=== PATIENT | male | born 1935 | race Caucasian/White ===

== ENCOUNTER 2016-11-27 04:00 | Emergency (ER) | payer MEDICARE ==
[2016-11-27] MEDS ORDERED: methylPREDNISolone SOD SUCC* 125 MG 2 ML VIAL IV ONE (04:15)
[2016-11-27 04:31] LABS: Hematocrit 39 % (42-52); Mean Corpuscular HGB Conc 33 g/dl (31-36); Mean Corpuscular Hemoglobin 28 pg (27-31); Mean Corpuscular Volume 86 fL (80-94); Mean Platelet Volume 9 um3 (7.4-10.4); Red Blood Count 4.56 10^6/ul (4.0-5.4); Red Cell Distribution Width 14 % (10.5-15); White Blood Count 6.2 10^3/ul (3.5-10.8)
[2016-11-27] MEDS ORDERED: Albuterol (2.5 MG) 0.5 % CONC 2.5 MG/0.5 ML NEB.SOLN INH ONE (04:31)
[2016-11-27] MEDS ORDERED: Ipratropium 0.5MG/2.5ML NEB* 0.5 MG/2.5 ML NEB.SOLN INH ONE (04:31)
[2016-11-27] MEDS ORDERED: Albuterol 0.5% CONC NEB.SOL* 5 MG/ML 20 ml BOT ONE (04:35)
[2016-11-27] MEDS ORDERED: Ipratropium 0.5MG/2.5ML NEB* 0.5 MG/2.5 ML NEB.SOLN ONE (04:35)
[2016-11-27 04:45] LABS: Albumin 4.3 g/dL (3.2-5.2); BUN/Creatinine Ratio 20.7 (8-20); Calcium 9.2 mg/dL (8.6-10.3); EGFR African American 108.6 (>60); EGFR Non-African American 84.4 (>60); Globulin 2.9 g/dL (2-4); Potassium 3.9 mmol/L (3.5-5.0); Total Bilirubin 0.4 mg/dL (0.2-1.0); Total Protein 7.2 g/dL (6.4-8.9)
--- NOTE | 2016-11-27 04:54 | ED ---
Jeff Goode Anna, scribed for Khang Edmond MD on 11/27/16 at 0405 . Shortness of Breath - HPI Summary HPI Summary: Patient is an 81 y/o male coming to [facility] presenting with constant SOB that began at 0200 this morning. He sometimes becomes SOB and has Prednisone that he takes when this happens. However, this morning he was at his daughters house and did not have access to his Prednisone. He has tried inhalers, but this has not alleviated his symptoms. He has also had an intermittent productive cough. He denies CP or fever. His history is significant for COPD and asthma. He denies a history of smoking. - History of Current Complaint Hx Obtained From: Patient Current Severity: Moderate - Allergy/Home Medications Allergies/Adverse Reactions: Allergies Allergy/AdvReac Type Severity Reaction Status Date / Time Dust Mite Extract Allergy Intermediate Unknown Verified 11/27/16 04:17 Reaction Details Cow hair Allergy Intermediate Itching Uncoded 11/27/16 04:17 PMH/Surg Hx/FS Hx/Imm Hx Endocrine/Hematology History: Denies: Hx Diabetes, Hx Thyroid Disease Comment Only: Hx Anemia - ON DAILY IRON Cardiovascular History: Reports: Hx Hypertension, Other Cardiovascular Problems/ Disorders - HIGH BLOOD PRESSURE Respiratory History: Reports: Hx Asthma, Hx Chronic Obstructive Pulmonary Disease (COPD) GI History: Reports: Hx Gastroesophageal Reflux Disease - ON DAILY MEDS Denies: Hx Ulcer Musculoskeletal History: Reports: Hx Arthritis - HANDS,HIPS, Hx Rheumatoid Arthritis Sensory History: Reports: Hx Cataracts - BILATERAL Opthamlomology History: Reports: Hx Cataracts - BILATERAL Psychiatric History: Reports: Hx Substance Abuse - quit drinking a 6 pack a day last month. - Surgical History Surgery Procedure, Year, and Place: CARDIAC STENT =2007. right rotator cuff Hx Anesthesia Reactions: No Infectious Disease History: Denies: Hx Hepatitis, Hx Human Immunodeficiency Virus (HIV), History Other Infectious Disease - Family History Known Family History: Positive: Hypertension - Social History Occupation: Retired Alcohol Use: None Alcohol Amount: 4-5 drinks ago Hx Substance Use: No Substance Use Type: Reports: None Hx Tobacco Use: No Smoking Status (MU): Never Smoked Tobacco Have You Smoked in the Last Year: No Review of Systems Negative: Fever Negative: Chest Pain Positive: Shortness Of Breath, Cough All Other Systems Reviewed And Are Negative: Yes Physical Exam Triage Information Reviewed: Yes Vital Signs On Initial Exam: Temp Pulse Resp BP Pulse Ox 98.1 F 88 20 156/95 94 11/27/16 04:05 11/27/16 04:10 11/27/16 04:05 11/27/16 04:05 11/27/16 04:10 Vital Signs Reviewed: Yes Appearance: Positive: Well-Appearing, No Pain Distress - moderate sob Head/Face: Positive: Normal Head/Face Inspection Eyes: Positive: KAILYN ENT: Positive: Hearing grossly normal Neck: Positive: Supple Respiratory/Lung Sounds: Positive: Breath Sounds Present, Wheezes - bilat exp wheezes with prolonged expiration Cardiovascular: Positive: RRR Abdomen Description: Positive: Nontender, Soft Musculoskeletal: Positive: Strength/ROM Intact Neurological: Positive: Alert, Oriented to Person Place, Time, Normal Gait Diagnostics - Vital Signs Vital Signs Temp Pulse Resp BP Pulse Ox 11/27/16 04:32 99 18 100 11/27/16 04:28 20 11/27/16 04:10 88 94 11/27/16 04:05 98.1 F 86 20 156/95 93 11/27/16 04:00 98.1 F 86 20 156/95 94 - Laboratory Lab Results: Lab Results 11/27/16 11/27/16 Range/Units 04:10 04:10 WBC 6.2 (3.5-10.8) 10^3/ul RBC 4.56 (4.0-5.4) 10^6/ul Hgb 13.0 L (14.0-18.0) g/dl Hct 39 L (42-52) % MCV 86 (80-94) fL MCH 28 (27-31) pg MCHC 33 (31-36) g/dl RDW 14 (10.5-15) % Plt Count 264 (150-450) 10^3/ul MPV 9 (7.4-10.4) um3 Neut % (Auto) 42.7 (38-83) % Lymph % (Auto) 34.0 (25-47) % [place] % (Auto) 9.6 H (1-9) % Eos % (Auto) 11.8 H (0-6) % Baso % (Auto) 1.9 (0-2) % Absolute Neuts (auto) 2.7 (1.5-7.7) 10^3/ul Absolute Lymphs (auto) 2.1 (1.0-4.8) 10^3/ul Absolute Monos (auto) 0.6 (0-0.8) 10^3/ul Absolute Eos (auto) 0.7 H (0-0.6) 10^3/ul Absolute Basos (auto) 0.1 (0-0.2) 10^3/ul Absolute Nucleated RBC 0 10^3/ul Nucleated RBC % 0 Sodium 138 (133-145) mmol/L Potassium 3.9 (3.5-5.0) mmol/L Chloride 105 (101-111) mmol/L Carbon Dioxide 26 (22-32) mmol/L Anion Gap 7 (2-11) mmol/L BUN 18 (6-24) mg/dL Creatinine 0.87 (0.67-1.17) mg/dL Est GFR ( Amer) 108.6 (>60) Est GFR (Non-Af Amer) 84.4 (>60) BUN/Creatinine Ratio 20.7 H (8-20) Glucose 88 (70-100) mg/dL Calcium 9.2 (8.6-10.3) mg/dL Total Bilirubin 0.40 (0.2-1.0) mg/dL AST 22 (13-39) U/L ALT 24 (7-52) U/L Alkaline Phosphatase 128 H (34-104) U/L Troponin I 0.00 (<0.04) ng/mL Total Protein 7.2 (6.4-8.9) g/dL Albumin 4.3 (3.2-5.2) g/dL Globulin 2.9 (2-4) g/dL Albumin/Globulin Ratio 1.5 (1-3) Result Diagrams: 11/27/16 04:10 11/27/16 04:10 Lab Statement: Any lab studies that have been ordered have been reviewed, and results considered in the medical decision making process. - Radiology CXR Xray Interpretation: No Acute Changes Radiology Interpretation Completed By: ED Physician - IMPRESSION: NORMAL CHEST XR - EKG 0420 Cardiac Rate: NL - 76 bpm EKG Interpretation: RB left posterior jesse block Re-Evaluation - Re-Evaluation First Eval Change: Improved - lungs clear Course/Dx - Course Assessment/Plan: Patient is an 81 y/o male coming to [facility] presenting with constant SOB that began at 0200 this morning. He sometimes becomes SOB and has Prednisone that he takes when this happens. However, this morning he was at his daughters house and did not have access to his Prednisone. He has tried inhalers, but this has not alleviated his symptoms. He has also had an intermittent productive cough. He denies CP or fever. His history is significant for COPD and asthma. He denies a history of smoking. Patient was given albuterol, Atrovent, and Solu-medrol in the ED course. CXR reveals normal chest. EKG reveals RB left posterior jesse block at 76 bpm. Labs reveal Hgb of 13.0, Hct of 39, BUN/Creatinine ratio of 20.7, and Alkaline Phosphatase of 128. Patient will be discharged with follow up from primary care physician and a prescription for Prednisone. Patient is agreeable with plan. - Diagnoses Provider Diagnoses: COPD exacerbation Discharge - Discharge Plan Condition: Stable Disposition: HOME Prescriptions: predniSONE TAB* [Deltasone TAB*] 40 mg PO DAILY #8 tab Patient Education Materials: Prednisone (By mouth), COPD (Chronic Obstructive Pulmonary Disease) (ED) Referrals: Corey Garay MD [Primary Care Provider] - Additional Instructions: Follow up with your primary care provider within 48 hours. Return to the Emergency Department for new or worsening symptoms. The documentation as recorded by the Jeff roger Anna accurately reflects the service I personally performed and the decisions made by me, Khang Edmond MD.
[2016-11-27] MEDS ORDERED: Albuterol/Ipratropium NEB.SOL* Albuterol 2.5 MG/Ipratropium 0.5 MG 3 ML INH SCH (05:00)
[2016-11-27 05:26] VITALS: BP 128/70
--- NOTE | 2016-11-27 06:06 | RAD ---
INDICATION: Short of breath COMPARISON: Chest x-ray July 30, 2016 TECHNIQUE: PA and lateral dual-energy views were obtained. FINDINGS: Bones/Soft Tissues: There are no acute bony findings. Cardiomediastinal: The cardiomediastinal silhouette is normal. Lungs: There are no infiltrates. There are bilateral nipple shadows appearing unchanged. Pleura: There are no pleural effusions. Other: None IMPRESSION: NO ACTIVE DISEASE.
== END 2016-11-27 05:26 | disposition home or self-care (01) ==
LOC: ED 04:00
DX: J44.1 Chronic obstructive pulmonary disease with (acute) exacerbation (principal); R06.02 Shortness of breath; R05 Cough
CPT/HCPCS: 36415; 71020; 80053; 84484; 85025; 93005; 94640; 96374; 99283; J2930; J7644

== ENCOUNTER 2017-01-20 21:11 | Observation (INO) | payer MEDICARE ==
[2017-01-20] MEDS ORDERED: Aspirin Low Dose CHEW TAB* 81 MG PO ONE (21:53)
--- NOTE | 2017-01-20 22:18 | RAD ---
HISTORY: Chest pain COMPARISONS: November 27, 2016 VIEWS:1: Single frontal portable view of the chest at 10:12 PM FINDINGS: LINES AND TUBES: None. CARDIOMEDIASTINAL SILHOUETTE: The cardiomediastinal silhouette is normal for portable technique. PLEURA: The costophrenic angles are sharp. No pleural abnormalities are noted. LUNG PARENCHYMA: The lungs are clear. ABDOMEN: The upper abdomen is clear. There is no subphrenic gas. BONES AND SOFT TISSUES: No bone or soft tissue abnormalities are noted. IMPRESSION: NO ACTIVE CARDIOPULMONARY DISEASE.
[2017-01-20 22:27] LABS: Hematocrit 44 % (42-52); Hemoglobin 14.4 g/dl (14.0-18.0); Mean Corpuscular HGB Conc 33 g/dl (31-36); Mean Corpuscular Hemoglobin 28 pg (27-31); Mean Corpuscular Volume 85 fL (80-94); Mean Platelet Volume 8 um3 (7.4-10.4); Red Cell Distribution Width 15 % (10.5-15); White Blood Count 9.9 10^3/ul (3.5-10.8)
[2017-01-20 22:31] LABS: Add Diff/Slide Review? Slide Review Added; Comments Flag Yes
[2017-01-20 22:36] LABS: Albumin 4.5 g/dL (3.2-5.2); BUN/Creatinine Ratio 17.5 (8-20); Calcium 9.6 mg/dL (8.6-10.3); EGFR African American 95.8 (>60); EGFR Non-African American 74.5 (>60); Globulin 3.5 g/dL (2-4); Potassium 3.3 mmol/L (3.5-5.0); Total Bilirubin 0.5 mg/dL (0.2-1.0)
[2017-01-20 22:38] LABS: Troponin I 0.01 ng/mL (<0.04)
[2017-01-20] MEDS ORDERED: Aspirin TAB* 325 MG PO ONE (23:10)
[2017-01-20] MEDS ORDERED: Potassium Chlor TAB* 20 MEQ TAB.ER PO ONE (23:50)
--- NOTE | 2017-01-21 03:25 | ED ---
Ever Goode Aidan, scribed for Chava Amanda on 01/20/17 at 2157 . 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 The patient was given ASA en route which reduced his pain to a 4/ 10. The last time he had CP was 3-4 days ago. Hx of intermittent CP aggravated by getting upset for which he takes NITRO. Additionally, he has a Hx of stent placement and cardiac catheterization. 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 Timing: Intermittent Initial Severity: Moderate Pain Intensity: 0 - current pain is 0 (see HPI) Pain Scale Used: 0-10 Numeric Chest Pain Location: Diffuse Chest Pain Radiates: No Character: Tightness Aggravating Factor(s): Other: - unknown Alleviating Factor(s): Other: - ASA seemed to reduce the CP from 6 to 4/10 Associated Signs and Symptoms: Positive: Negative - Allergy/Home Medications Allergies/Adverse Reactions: Allergies Allergy/AdvReac Type Severity Reaction Status Date / Time Dust Mite Extract Allergy Intermediate Unknown Verified 11/27/16 04:17 Reaction Details Cow hair Allergy Intermediate Itching Uncoded 11/27/16 04:17 PMH/Surg Hx/FS Hx/Imm Hx Endocrine/Hematology History: Denies: Hx Diabetes, Hx Thyroid Disease Comment Only: Hx Anemia - ON DAILY IRON Cardiovascular History: Reports: Hx Hypertension, Other Cardiovascular Problems/ Disorders - HIGH BLOOD PRESSURE Respiratory History: Reports: Hx Asthma, Hx Chronic Obstructive Pulmonary Disease (COPD), Other Respiratory Problems/Disorders - HX OF COPD GI History: Reports: Hx Gastroesophageal Reflux Disease - ON DAILY MEDS Denies: Hx Ulcer Musculoskeletal History: Reports: Hx Arthritis - HANDS,HIPS, Hx Rheumatoid Arthritis Sensory History: Reports: Hx Cataracts - BILATERAL Opthamlomology History: Reports: Hx Cataracts - BILATERAL Psychiatric History: Reports: Hx Substance Abuse - quit drinking a 6 pack a day last month. - Surgical History Surgery Procedure, Year, and Place: CARDIAC STENT =2007. right rotator cuff Hx Anesthesia Reactions: No - Immunization History Date of Tetanus Vaccine: unk Date of Influenza Vaccine: unk Infectious Disease History: Unable to Obtain/Confirm Infectious Disease History: Denies: Hx Hepatitis, Hx Human Immunodeficiency Virus (HIV), History Other Infectious Disease, Traveled Outside the [place] in Last 30 Days - Family History Known Family History: Positive: Hypertension - Social History Occupation: Retired Lives: Alone Alcohol Use: "2 beers" today Alcohol Amount: "2 beers" today Hx Substance Use: No Substance Use Type: Reports: None Hx Tobacco Use: No Smoking Status (MU): Unknown if Ever Smoked Have You Smoked in the Last Year: No Review of Systems Constitutional: Negative Eyes: Negative ENT: Negative Positive: Chest Pain. Negative: Palpitations Respiratory: Negative Gastrointestinal: Negative Genitourinary: Negative Musculoskeletal: Negative Skin: Negative Neurological: Negative Psychological: Normal All Other Systems Reviewed And Are Negative: Yes Physical Exam Triage Information Reviewed: Yes Vital Signs On Initial Exam: Initial Vitals Temp Pulse Resp BP Pulse Ox 98.4 F 116 28 157/95 98 01/20/17 21:15 01/20/17 21:15 01/20/17 21:15 01/20/17 21:15 01/20/17 21:15 Vital Signs Reviewed: Yes Appearance: Positive: Well-Appearing, No Pain Distress Skin: Positive: Warm, Skin Color Reflects Adequate Perfusion, Dry Head/Face: Positive: Normal Head/Face Inspection Eyes: Positive: EOMI, KAILYN ENT: Positive: Normal ENT inspection Neck: Positive: Supple, Nontender Respiratory/Lung Sounds: Positive: Clear to Auscultation, Breath Sounds Present Cardiovascular: Positive: Pulses are Symmetrical in both Upper and Lower Extremities. Negative: RRR - tachycardia Abdomen Description: Positive: Nontender, Soft Bowel Sounds: Positive: Present Musculoskeletal: Positive: Normal, Strength/ROM Intact Neurological: Positive: Normal, Sensory/Motor Intact, Alert, Oriented to Person Place, Time Psychiatric: Positive: Normal, Affect/Mood Appropriate AVPU Assessment: Alert - [place] Coma Scale Coma Scale Total: 15 Diagnostics - Vital Signs Vital Signs Temp Pulse Resp BP Pulse Ox 01/20/17 21:18 122 29 97 01/20/17 21:15 98.4 F 116 28 157/95 98 - Laboratory Lab Results: Lab Results 01/20/17 01/20/17 01/20/17 Range/Units 22:00 22:00 22:00 WBC 9.9 (3.5-10.8) 10^3/ul RBC 5.20 (4.0-5.4) 10^6/ul Hgb 14.4 (14.0-18.0) g/dl Hct 44 (42-52) % MCV 85 (80-94) fL MCH 28 (27-31) pg MCHC 33 (31-36) g/dl RDW 15 (10.5-15) % Plt Count 310 (150-450) 10^3/ul MPV 8 (7.4-10.4) um3 Neut % (Auto) 66.6 (38-83) % Lymph % (Auto) 19.6 L (25-47) % [place] % (Auto) 7.3 (1-9) % Eos % (Auto) 4.5 (0-6) % Baso % (Auto) 2.0 (0-2) % Absolute Neuts (auto) 6.6 (1.5-7.7) 10^3/ul Absolute Lymphs (auto) 1.9 (1.0-4.8) 10^3/ul Absolute Monos (auto) 0.7 (0-0.8) 10^3/ul Absolute Eos (auto) 0.4 (0-0.6) 10^3/ul Absolute Basos (auto) 0.2 (0-0.2) 10^3/ul Absolute Nucleated RBC 0 10^3/ul Nucleated RBC % 0 INR (Anticoag Therapy) 0.87 L (0.89-1.11) APTT 26.8 (26.0-36.3) seconds Sodium 134 (133-145) mmol/L Potassium 3.3 L (3.5-5.0) mmol/L Chloride 101 (101-111) mmol/L Carbon Dioxide 21 L (22-32) mmol/L Anion Gap 12 H (2-11) mmol/L BUN 17 (6-24) mg/dL Creatinine 0.97 (0.67-1.17) mg/dL Est GFR ( Amer) 95.8 (>60) Est GFR (Non-Af Amer) 74.5 (>60) BUN/Creatinine Ratio 17.5 (8-20) Glucose 126 H (70-100) mg/dL Calcium 9.6 (8.6-10.3) mg/dL Total Bilirubin 0.50 (0.2-1.0) mg/dL AST 19 (13-39) U/L ALT 16 (7-52) U/L Alkaline Phosphatase 215 H (34-104) U/L Troponin I 0.01 (<0.04) ng/mL B-Natriuretic Peptide ( - 100) pg/mL Total Protein 8.0 (6.4-8.9) g/dL Albumin 4.5 (3.2-5.2) g/dL Globulin 3.5 (2-4) g/dL Albumin/Globulin Ratio 1.3 (1-3) 01/20/17 Range/Units 22:00 WBC (3.5-10.8) 10^3/ul RBC (4.0-5.4) 10^6/ul Hgb (14.0-18.0) g/dl Hct (42-52) % MCV (80-94) fL MCH (27-31) pg MCHC (31-36) g/dl RDW (10.5-15) % Plt Count (150-450) 10^3/ul MPV (7.4-10.4) um3 Neut % (Auto) (38-83) % Lymph % (Auto) (25-47) % [place] % (Auto) (1-9) % Eos % (Auto) (0-6) % Baso % (Auto) (0-2) % Absolute Neuts (auto) (1.5-7.7) 10^3/ul Absolute Lymphs (auto) (1.0-4.8) 10^3/ul Absolute Monos (auto) (0-0.8) 10^3/ul Absolute Eos (auto) (0-0.6) 10^3/ul Absolute Basos (auto) (0-0.2) 10^3/ul Absolute Nucleated RBC 10^3/ul Nucleated RBC % INR (Anticoag Therapy) (0.89-1.11) APTT (26.0-36.3) seconds Sodium (133-145) mmol/L Potassium (3.5-5.0) mmol/L Chloride (101-111) mmol/L Carbon Dioxide (22-32) mmol/L Anion Gap (2-11) mmol/L BUN (6-24) mg/dL Creatinine (0.67-1.17) mg/dL Est GFR ( Amer) (>60) Est GFR (Non-Af Amer) (>60) BUN/Creatinine Ratio (8-20) Glucose (70-100) mg/dL Calcium (8.6-10.3) mg/dL Total Bilirubin (0.2-1.0) mg/dL AST (13-39) U/L ALT (7-52) U/L Alkaline Phosphatase (34-104) U/L Troponin I (<0.04) ng/mL B-Natriuretic Peptide 39 ( - 100) pg/mL Total Protein (6.4-8.9) g/dL Albumin (3.2-5.2) g/dL Globulin (2-4) g/dL Albumin/Globulin Ratio (1-3) Result Diagrams: 01/20/17 22:00 01/20/17 22:00 Lab Statement: Any lab studies that have been ordered have been reviewed, and results considered in the medical decision making process. 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 Labs reviewed. Imaging reviewed. The patient will be admitted to Dr. Good with CP to rule out ME. - Diagnoses Provider Diagnoses: Chest pain, CAD (coronary artery disease) Discharge - Discharge Plan Condition: Stable Disposition: ADMITTED TO [facility]charge Disposition Comment: The patient will be admitted to Dr. Good with CP to rule out ME. The documentation as recorded by the Ever roger Aidan accurately reflects the service I personally performed and the decisions made by Vasiliy sharp Emmanuel.
[2017-01-21] MEDS ORDERED: Heparin VIAL(*) 5000 UNITS/ML VIAL (FIVE THOUSAND) SUBCUT SCH (06:00)
[2017-01-21 06:26] LABS: Troponin I 0.01 ng/mL (<0.04)
--- NOTE | 2017-01-21 08:40 | HP ---
HISTORY AND PHYSICAL: DATE OF ADMISSION: 01/21/17 CHIEF COMPLAINT: Chest pain. HISTORY OF PRESENT ILLNESS: The patient is an 81-year-old gentleman who says he went to the [facility] today and had a beer there. Two hours later, he had another beer but did not finish it. At that time, he put it on his car seat, and to prevent it from falling, he picked it up and had a sip from it. After sipping it, a public health officer saw him and pulled him over for that. He then tried to find out if the patient had too much alcohol drink, and the patient said he had difficulty coordinating the breathing test and walking because of arthritis. He got frustrated and developed some chest pain. It was centered to the right and was stabbing. Normally, he has his chest pain and takes nitroglycerin for it and it goes away, but did not have any. He had no nausea or vomiting, but did get short of breath and was sweating. He did fall to the floor and eventually passed out. At its worse, the pain was 6/10 and the pain finally was relieved upon arrival in the ER. Interesting the patient does see Cardiology and is scheduled for a stress test in the next 1 to 2 weeks. PAST MEDICAL HISTORY: He has a past medical history significant for coronary artery disease with a stent placed 3 to 4 years ago at [place], COPD, asthma, hyperlipidemia, and GERD. PAST SURGICAL HISTORY: Rotator cuff repair in his right arm and right leg. He had some knee surgery, but cannot tell me what type. CURRENT MEDICATIONS: He is unaware of, but he uses [facility] on [facility]. ALLERGIES: He has allergies, adverse reaction to [employer]. FAMILY HISTORY: Mother at 96 of old age and Alzheimer's and father at 95, he chocked while at [facility]. SOCIAL HISTORY: No tobacco. Smokes. Drinks 3 to 4 beers a day. No recreational drug use. 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 He has 2 kids. He is a . His son José or Reji would be his health care proxies. REVIEW OF SYSTEMS: A 14-point review of systems was completed with the patient. All pertinent positives and negatives are in the history of present illness, otherwise is negative. PHYSICAL EXAMINATION GENERAL: A pleasant gentleman, lying in bed, in no acute distress. VITAL SIGNS: Blood pressure 126/75, pulse ox 94%, heart rate 86 beats per minute, respiratory rate 28 beats per minute, and temperature 98.4 degrees. HEENT: Normocephalic, atraumatic. Pupils equal, round, reactive to light. Moist mucous membranes. NECK: Supple. No JVD, bruits, palpable thyroid, or lymphadenopathy. CHEST: Clear to auscultation and percussion bilaterally. CARDIOVASCULAR: S1 and S2 appreciated. ABDOMEN: Positive bowel sounds in all 4 quadrants. Soft. He has got a positive fluid wave. EXTREMITIES: No cyanosis or clubbing. Mild edema. NEURO: Alert and oriented x3. Moves all extremities. SKIN: No rashes or abnormalities. DIAGNOSTIC STUDIES/LAB DATA: White count 9.9, hemoglobin 14.4, hematocrit 44, platelets are 310. Sodium is 134, potassium 4.3, chloride 101, CO2 21, BUN 17, creatinine , and glucose 126. Troponin 0.01. BNP 39. INR is 0.87. Chest x-ray was interpreted by Radiology as no active cardiopulmonary disease. EKG shows sinus tachycardia at 117 beats per minute, left axis deviation, left anterior hemiblock, right bundle-branch block pattern. ASSESSMENT AND PLAN: 1. Chest pain: It could be from ischemic heart disease, but he is supposed to get a stress test as an outpatient with Dr. Gomez. I will check another troponin in the morning. If it is negative, he should be able to go home today as we do not do stress test in the weekend and he is stable. He should follow up with Dr. Gomez within 1 to 2 weeks and get a followup stress test at that time. If his troponin does bump up, we will get Cardiology to see the patient. 2. Chronic obstructive pulmonary disease: It is unclear what medications he is on, but apparently he was on Singulair and inhalers at one time. The patient states for a prolonged period. We will need to get his list of medications from [facility]. 3. Benign prostatic hyperplasia: Continue Flomax if he stays for another day. 4. FEN: Heart healthy diet. 5. DVT prophylaxis: Heparin subcu. 6. The patient is a full code. TIME SPENT: Over 75 minutes was spent on this H and P, more than 40 minutes of which was spent on direct [id number] contact with the patient, evaluation, physical exam, counseling, and coordination of care. CC: Dr. Corey Garay* [id number]/[facility] #: [id number] KEITH
[2017-01-21 08:46] LABS: Potassium 4.1 mmol/L (3.5-5.0)
[2017-01-21] MEDS ORDERED: Albuterol HFA INHALER* 8 gm MDI INH PRN (08:56)
[2017-01-21 12:03] VITALS: BP 124/70
--- NOTE | 2017-01-21 12:38 | PN ---
Subjective Date of Service: 01/21/17 Interval History: Patient seen and examined at bedside. Pt states that he feels much better today. Denies fever, chills, shortness of breath, chest discomfort, N/V/D. Tele: Sinus rhythm, rate 70's. Pt noted to have one 2.69 second pause. Family History: Unchanged from Admission Social History: Unchanged from Admission Past Medical History: Unchanged from Admission Objective Active Medications: Albuterol (Ventolin Hfa Inhaler*) 2 puff INH Q6H PRN Reason: SOB/WHEEZING Heparin Sodium (Porcine) (Heparin Vial(*)) 5,000 units SUBCUT Q8HR KATHRYN Vital Signs 01/21/17 01/21/17 01/21/17 03:00 03:18 07:47 Temperature 98.1 F 98.6 F Pulse Rate 82 76 65 Respiratory 24 20 Rate Blood Pressure 124/68 118/67 123/79 (mmHg) O2 Sat by Pulse 94 96 96 Oximetry 01/21/17 01/21/17 01/21/17 08:00 10:08 11:40 Temperature 98.4 F Pulse Rate 71 62 Respiratory 18 18 20 Rate Blood Pressure 124/70 (mmHg) O2 Sat by Pulse 96 98 Oximetry Oxygen Devices in Use Now: None Appearance: NAD, sitting up on the side of the bed Eyes: No Scleral Icterus Respiratory: Symmetrical Chest Expansion and Respiratory Effort, Clear to Auscultation Cardiovascular: NL Sounds; No Murmurs; No JVD, RRR Abdominal: NL Sounds; No Tenderness; No Distention Extremities: No Edema Skin: No Rash or Ulcers Neurological: Alert and Oriented x 3, NL Muscle Strength and Tone Lines/Tubes/Other Access: Clean, Dry and Intact Peripheral IV - site benign Nutrition: Taking PO's Result Diagrams: 01/20/17 22:00 01/21/17 05:48 Assess/Plan/Problems-Billing Assessment: Mr. Solomon is an 81 yo male with PMH significant for HTN, CAD and asthma who presented to the emergency room with complaints of chest pain. - Patient Problems (1) Chest pain Code(s): R07.9 - CHEST PAIN, UNSPECIFIED SNOMED Code(s): 51441057 Comment: - Resolved - Troponoin 0.01x2 - Recommend outpatient stress test and followup with Cardiology (2) Hypokalemia Code(s): E87.6 - HYPOKALEMIA SNOMED Code(s): 33099165 Comment: - Received replacement - Resolved (3) History of coronary artery disease Code(s): Z86.79 - PERSONAL HISTORY OF OTHER DISEASES OF THE CIRCULATORY SYSTEM SNOMED Code(s): 565233010 Comment: - Continue ASA, beta rj and statin (4) HTN (hypertension) Code(s): I10 - ESSENTIAL (PRIMARY) HYPERTENSION SNOMED Code(s): 66887250 Comment: - Normotensive - Continue home medications (5) Asthma Code(s): J45.909 - UNSPECIFIED ASTHMA, UNCOMPLICATED SNOMED Code(s): 662403568 Comment: - No signs of exacerbation - Continue home medications - Plan for outpatient sleep study and PFTs (6) DVT prophylaxis Code(s): LBJ6273 - SNOMED Code(s): 742254356 (7) Full code status Code(s): Z78.9 - OTHER SPECIFIED HEALTH STATUS SNOMED Code(s): 894059523 Status and Disposition: OBV. Stable for discharge to home.
--- NOTE | 2017-01-22 07:26 | DS ---
DISCHARGE SUMMARY: DATE OF ADMISSION: 01/21/17 DATE OF DISCHARGE: 01/21/17 ATTENDING PHYSICIAN: Brain Ricci MD *(dictated by Merlin Hall NP). PRIMARY CARE PROVIDER: Corey Graay MD PRIMARY DIAGNOSIS: Chest pain, suspect related to stress. SECONDARY DIAGNOSES: 1. History of coronary artery disease. 2. Hypertension. 3. Asthma. STUDIES WHILE IN THE HOSPITAL: 1. Chest x-ray on 01/20/17. Radiologist's impression: No active cardiopulmonary disease. DISCHARGE MEDICATIONS: Continued home medications: 1. Lipitor 80 mg oral daily. 2. Albuterol HFA inhaler 2 puffs inhalation every 4 hours as needed for shortness of breath or wheezing. 3. Singulair 10 mg oral daily at bedtime. 4. Omeprazole 20 mg oral daily. 5. Lisinopril 5 mg oral daily. 6. Amlodipine 10 mg oral daily. 7. Tamsulosin 0.4 mg oral daily. 8. Potassium chloride 20 mEq oral daily. 9. Nitroglycerin 0.4 mg sublingual every 5 minutes as needed for chest pain. 10. Metoprolol succinate 25 mg oral daily. 11. Breo Ellipta 200/25 mcg 1 inhalation daily. 12. Ferrous sulfate 325 mg oral. 13. Tessalon 100 mg oral 1 capsule 3 times daily as needed for cough. 14. Aspirin 81 mg oral daily. HISTORY OF PRESENT ILLNESS/HOSPITAL COURSE: Mr. Solomon is an 81-year-old male with past medical history significant for coronary artery disease, asthma, hypertension, hyperlipidemia, and GERD, who presents to the hospital with complaints of chest pain after being pulled over by the police. The patient was frustrated, developing chest pain that was located sternally to the right and to the right of his chest and was described as a stabbing sensation. The patient denied associated symptoms such as nausea, vomiting. The patient does have shortness of breath at baseline. The patient takes nitroglycerin as needed at home, but did not have any with him. As the patient became more frustrated, he developed shortness of breath, diaphoresis, and eventually passed out. As the patient's pain was worsening, he was brought to the emergency room for further evaluation of his symptoms. While in the emergency room, the patient had an EKG showing sinus tachycardia with a rate of 117 and right bundle-branch block. He had a chest x-ray with no acute findings. The patient's initial troponin was 0.01. Hospitalists were asked to evaluate the patient for admission. During the patient's hospitalization, his vital signs remained stable. His repeat troponin this morning was 0.01. To note, the patient was noted to have hypokalemia in the emergency room, received replacement and this has now resolved. This morning, the patient is chest pain-free and states that he is feeling much better. I suspect the patient's symptoms were related to stress due to the situation he was in. Mr. Solomon was stable for discharge to home today. Vital signs are as follows: temperature 98.4, heart rate 62, respiratory rate 20, O2 saturation 98% on room air, blood pressure 124/70. DISCHARGE PLAN: Mr. Solomon will be discharged to home. Activity as tolerated. He is to be on a heart-healthy diet. As far as the patient's chest discomfort , I suspect this was stress-related, although he does have risk factors for ischemic heart disease. The patient will be scheduled for an outpatient stress test. He should receive a call from [facility] with instructions and an appointment time on 01/23/17. As far as the patient's shortness of breath and asthma, he has been following with Dr. Coleman and has been encouraged to keep his appointments for sleep study and pulmonary function tests and then to follow up with Dr. Coleman accordingly. The patient has been encouraged to avoid alcohol. He should follow up with his primary care provider , Dr. Garay. He has been asked to call Dr. Garay's on Monday to set up a followup appointment to be seen in the next week. The patient has been asked to follow up with Dr. Gomez after his stress test. This is a summarized report of a complex medical history and hospital stay. For further details, please see the entire medical record. TIME SPENT: Time for this discharge was 50 minutes and greater than half of that was spent [id number] with the patient, discussing discharge plans and instructions. CONDITION ON DISCHARGE: Stable. MERLINRupa WOOD NP CC: Corey Garay MD* [id number]/[facility] #: [id number] KEITH
== END 2017-01-21 13:15 | disposition home or self-care (01) ==
LOC: ED 21:11 → MEDTELE 01-21 02:34
PROVIDERS: ADMIT Internal Medicine; ATTEND Hospitalist
DX: R07.9 Chest pain, unspecified (principal); I25.10 Atherosclerotic heart disease of native coronary artery without angina pectoris; I10 Essential (primary) hypertension; J45.909 Unspecified asthma, uncomplicated; N40.0 Benign prostatic hyperplasia without lower urinary tract symptoms; R06.02 Shortness of breath; E87.6 Hypokalemia; I45.10 Unspecified right bundle-branch block; Z79.82 Long term (current) use of aspirin; Z79.899 Other long term (current) drug therapy
CPT/HCPCS: 36415; 71010; 80053; 83880; 84132; 84484; 85025; 85610; 85730; 93005; 94640; 94760; 96372; 99284; A9270-GY; G0378; J1644

== ENCOUNTER 2017-03-16 18:28 | Emergency (ER) | payer MEDICARE ==
--- NOTE | 2017-03-16 19:59 | UC ---
Neck Pain HPI - HPI Summary HPI Summary: Yesterday woke up with sharp pain on both sides of neck in muscles whenever he moves his head. Had no symptoms the night before, no injury, no fever, chest pain, SOB, or pain in L arm/jaw. - History of Current Complaint Chief Complaint: UCGeneralIllness Stated Complaint: NECK STIFFNESS,PAIN Time Seen by Provider: 03/16/17 19:30 Hx Obtained From: Patient Onset/Duration Of Injury/Symptoms: Days Mechanism Of Injury: No Known Trauma Timing: Constant Onset/Duration: Gradual Onset, Lasting Days Severity: Moderate Location: Discrete At: - side muscles on neck Character: Sharp, Spasmotic Aggravating Factors: Position, Movement Alleviating Factors: Other: - took naproxen 500mg RX, Position - Allergies/Home Medications Allergies/Adverse Reactions: Allergies Allergy/AdvReac Type Severity Reaction Status Date / Time Dust Mite Extract Allergy Intermediate Unknown Verified 11/27/16 04:17 Reaction Details Cow hair Allergy Intermediate Itching Uncoded 11/27/16 04:17 PMH/Surg Hx/FS Hx/Imm Hx Cardiovascular History: Cardiac Disease, Hypertension Respiratory History: COPD - Surgical History Surgical History: Yes Surgery Procedure, Year, and Place: CARDIAC STENT =2007. right rotator cuff. Right leh - Family History Known Family History: Positive: Hypertension - Social History Occupation: Retired Alcohol Use: Daily Alcohol Amount: "usually 4" daily Substance Use Type: None Smoking Status (MU): Never Smoked Tobacco Have You Smoked in the Last Year: No Household Exposure Type: Cigars - Immunization History Most Recent Influenza Vaccination: fall 2015 Review Of Systems Constitutional: Positive: Negative Skin: Positive: Negative Eyes: Positive: Negative ENT: Positive: Negative Respiratory: Positive: Negative Cardiovascular: Positive: Negative Gastrointestinal: Positive: Negative Genitourinary: Positive: Negative Musculoskeletal: Positive: Decreased ROM - neck, Myalgia - neck Neurological: Positive: Negative Psychological: Positive: Negative All Other Systems Reviewed And Are Negative: Yes Physical Exam Triage Information Reviewed: Yes Appearance: Well-Nourished, Pain Distress - with head movement Vital Signs: Initial Vital Signs Temp 98.6 F 03/16/17 18:32 Pulse 75 03/16/17 18:32 Resp 16 03/16/17 18:32 Pulse Ox 98 03/16/17 18:32 Vital Signs Reviewed: Yes Eye Exam: Normal, Other - constricted pupils due to age Eyes: Positive: Conjunctiva Clear ENT Exam: Normal ENT: Positive: Normal ENT inspection, Hearing grossly normal, Pharynx normal, TMs normal Dental Exam: Normal Neck: Positive: No Lymphadenopathy, Tenderness @ - bilat SCM muscles Respiratory Exam: Normal Respiratory: Positive: Chest non-tender, Lungs clear, Normal breath sounds, No respiratory distress, No accessory muscle use Cardiovascular Exam: Normal Cardiovascular: Positive: RRR, No Murmur Musculoskeletal: Positive: No Edema, ROM Limited @ - neck Neurological Exam: Normal Neurological: Positive: Alert Psychological Exam: Normal Psychological: Positive: Normal Response To Family Skin Exam: Normal Neck Pain Course/Dx - Differential Dx/Diagnosis Provider Diagnoses: acute muscle spasm in cervical muscles Discharge - Discharge Plan Condition: Stable Disposition: HOME Prescriptions: Cyclobenzaprine HCl [Flexeril 5 mg (NF)] 5 mg PO BEDTIME #7 tab Naproxen [Naproxen 500 mg] 500 mg PO BID #6 tab Patient Education Materials: Acute Neck Pain (ED) Referrals: Corey Garay MD [Primary Care Provider] - Additional Instructions: We do not always know why someone wakes with sharp pains in the neck muscles, but this is a common event and the worst of the pain usually passes in 2-3 days. Please see your primary care provider early next week if you are still having significant symptoms. Your underlying health concerns, as well as current medications, make aggressively treating your pain and muscle spasm difficult. Please go to the emergency department right away if you have chest pain, difficulty breathing, or sudden swelling.
== END 2017-03-16 20:06 | disposition home or self-care (01) ==
LOC: UCEAST 18:28
DX: M62.838 Other muscle spasm (principal); Z72.0 Tobacco use
CPT/HCPCS: 99213; G0463

== ENCOUNTER 2017-06-14 18:14 | Emergency (ER) | payer MEDICARE ==
--- NOTE | 2017-06-14 18:24 | UC ---
Respiratory Complaint HPI - HPI Summary HPI Summary: 81 year old male presents with complains of cough and blunt trauma to chest after falling. - History of Current Complaint Stated Complaint: COUGH,COLD Time Seen by Provider: 06/14/17 18:23 Hx Obtained From: Patient Onset/Duration: Sudden Onset Severity Initially: Moderate Severity Currently: Moderate Pain Scale Used: 0-10 Numeric - 5 Character: Cough: Nonproductive - Allergies/Home Medications Allergies/Adverse Reactions: Allergies Allergy/AdvReac Type Severity Reaction Status Date / Time Dust Mite Extract Allergy Intermediate Unknown Verified 06/14/17 18:28 Reaction Details Cow hair Allergy Intermediate Itching Uncoded 11/27/16 04:17 Home Medications: Home Medications Fluticasone Furoate-Vilanterol [Breo Ellipta 200-25 Mcg/INH] 1 inh IN DAILY [History Confirmed 06/14/17] PMH/Surg Hx/FS Hx/Imm Hx Previously Healthy: Yes - Surgical History Surgical History: Yes Surgery Procedure, Year, and Place: CARDIAC STENT =2007. right rotator cuff. Right leh - Family History Known Family History: Positive: Hypertension - Social History Alcohol Use: Daily Alcohol Amount: "usually 4" daily Substance Use Type: None Smoking Status (MU): Never Smoked Tobacco Have You Smoked in the Last Year: No Household Exposure Type: Cigars - Immunization History Most Recent Influenza Vaccination: fall 2015 Review of Systems Constitutional: Negative Skin: Negative Eyes: Negative ENT: Negative Respiratory: Cough Cardiovascular: Negative Gastrointestinal: Negative Genitourinary: Negative Motor: Negative Neurovascular: Negative Musculoskeletal: Negative Neurological: Negative Psychological: Negative All Other Systems Reviewed And Are Negative: Yes Physical Exam Triage Information Reviewed: Yes Vital Signs Reviewed: Yes Eye Exam: Normal ENT: Positive: Pharyngeal erythema, Nasal congestion, Nasal drainage Dental Exam: Normal Neck exam: Normal Neck: Positive: 1 Respiratory Exam: Normal Cardiovascular Exam: Normal Abdominal Exam: Normal Musculoskeletal Exam: Normal Neurological Exam: Normal Psychological Exam: Normal Skin Exam: Normal Respiratory Course/Dx - Differential Dx/Diagnosis Provider Diagnoses: cough. blunt trauma to chest Discharge - Discharge Plan Condition: Stable Disposition: HOME Prescriptions: Azithromyxin TONY (NF) [Z-Tony (Zithromax) 250 mg tabs #6] 2 tab PO .TODAY, THEN 1 DAILY #6 tab guaiFENesin/CODIEN 100MG-10MG* [Robitussin AC 100Mg-10Mg*] 5 ml PO Q8H PRN #120 ml MDD 15 ml PRN Reason: Cough predniSONE TAB* [Deltasone TAB*] 40 mg PO DAILY #10 tab Patient Education Materials: Acute Cough (ED), Wheezing (ED) Referrals: Corey Garay MD [Primary Care Provider] -
[2017-06-14 18:27] VITALS: BP 117/64
[2017-06-14] MEDS ORDERED: Albuterol/Ipratropium NEB.SOL* Albuterol 2.5 MG/Ipratropium 0.5 MG 3 ML INH ONE (19:04)
[2017-06-14] MEDS ORDERED: predniSONE TAB* 20 MG PO ONE (19:04)
--- NOTE | 2017-06-14 19:17 | RAD ---
INDICATION: Cough COMPARISON: January 20, 2017 TECHNIQUE: PA and lateral dual-energy views were obtained. FINDINGS: Bones/Soft Tissues: There are no acute bony findings. Cardiomediastinal: The cardiomediastinal silhouette is normal. Lungs: There are no infiltrates. Pleura: There are no pleural effusions. Other: None IMPRESSION: NO ACTIVE DISEASE.
[2017-06-14] MEDS ORDERED: Azithromycin TAB* 250 MG PO ONE (19:41)
[2017-06-14] MEDS ORDERED: Azithromycin TAB* 250 MG ONE (19:42)
== END 2017-06-14 19:47 | disposition home or self-care (01) ==
LOC: UCEAST 18:14
DX: S29.9XXA Unspecified injury of thorax, initial encounter (principal); R05 Cough; W19.XXXA Unspecified fall, initial encounter; Y92.9 Unspecified place or not applicable
CPT/HCPCS: 71020; 99213; A9270-GY; G0463; J7512

== ENCOUNTER 2017-06-18 12:43 | Emergency (ER) | payer MEDICARE ==
[2017-06-18 12:56] VITALS: BP 127/61
--- NOTE | 2017-06-18 12:57 | UC ---
Throat Pain/Nasal Eusebio HPI - HPI Summary HPI Summary: stubbed toe and fell last week, hitting his chest on a piece of wood (bruising and pain Left sternal boarder ) cough is getting worse, hurts chest wall to cough no fevers,is not using his nebulizer at home because he ran out of neb solution, and he is not getting relief with inhaler, and Robitussin with codiene ,, does not have a sore throat - History of Current Complaint Chief Complaint: UCRespiratory Stated Complaint: SORE THROAT COUGH Time Seen by Provider: 06/18/17 12:56 Hx Obtained From: Patient Onset/Duration: Sudden Onset, Lasting Days, Still Present Severity: Moderate Pain Intensity: 8 Pain Scale Used: 0-10 Numeric Cough: Sputum Appears - "like chicken gravy" Associated Signs & Symptoms: Positive: Wheezing - Allergies/Home Medications Allergies/Adverse Reactions: Allergies Allergy/AdvReac Type Severity Reaction Status Date / Time Dust Mite Extract Allergy Intermediate Unknown Verified 06/18/17 12:59 Reaction Details Cow hair Allergy Intermediate Itching Uncoded 06/18/17 12:59 PMH/Surg Hx/FS Hx/Imm Hx Previously Healthy: No Endocrine History: Dyslipidemia Cardiovascular History: Cardiac Disease, Hypertension Respiratory History: Asthma GI/ History: Gastroesophageal Reflux - Surgical History Surgical History: Yes Surgery Procedure, Year, and Place: CARDIAC STENT =2007. right rotator cuff. Right leh - Family History Known Family History: Positive: Hypertension - Social History Occupation: Retired Lives: Alone Alcohol Use: Daily Alcohol Amount: "usually 4" daily Substance Use Type: None Smoking Status (MU): Never Smoked Tobacco Have You Smoked in the Last Year: No Household Exposure Type: Cigars - Immunization History Most Recent Influenza Vaccination: fall 2015 Review of Systems Constitutional: Negative Skin: Negative Eyes: Negative ENT: Negative Respiratory: Cough, Other - Chest wall hurts with cough Cardiovascular: Negative Gastrointestinal: Negative Genitourinary: Negative Motor: Negative Neurovascular: Negative Musculoskeletal: Negative Neurological: Negative Psychological: Negative Is Patient Immunocompromised?: No All Other Systems Reviewed And Are Negative: Yes Physical Exam Triage Information Reviewed: Yes Appearance: Well-Nourished, Ill-Appearing - mild, Pain Distress - mild Vital Signs: Initial Vital Signs Temp 97.9 F 06/18/17 12:52 Pulse 75 06/18/17 12:52 Resp 22 06/18/17 12:52 BP 127/61 06/18/17 12:52 Pulse Ox 98 06/18/17 12:52 Vital Signs Reviewed: Yes Eye Exam: Normal Eyes: Positive: Conjunctiva Clear ENT Exam: Normal ENT: Positive: Normal ENT inspection, Hearing grossly normal, Pharynx normal, TMs normal. Negative: Nasal congestion, Nasal drainage, Trismus, Muffled/ hoarse voice Dental Exam: Normal Neck exam: Normal Neck: Positive: Supple, Nontender, No Lymphadenopathy Respiratory Exam: Normal Respiratory: Positive: Chest non-tender, Lungs clear, Normal breath sounds, No respiratory distress, No accessory muscle use Cardiovascular Exam: Normal Cardiovascular: Positive: RRR, No Murmur, Pulses Normal, Brisk Capillary Refill Musculoskeletal Exam: Normal Musculoskeletal: Positive: Strength Intact, ROM Intact, No Edema Neurological Exam: Normal Neurological: Positive: Alert, Muscle Tone Normal Psychological Exam: Normal Skin Exam: Normal Diagnostics - Radiology No standard instances Xray Interpretation: No Acute Changes Radiology Interpretation Completed By: Radiologist Throat Pain/Nasal Course/Dx - Course Assessment/Plan: continue prednisone, zithromax, pressure with towel or pillows for c,t,db, nebulizer, follow with pcp - Differential Dx/Diagnosis Provider Diagnoses: Rib Contusion, Bronchospasm Discharge - Discharge Plan Condition: Stable Disposition: HOME Prescriptions: Albuterol 2.5MG/3ML (0.083%)* [Ventolin 2.5 MG/3 ML NEB.NEIDA*] 2.5 mg INH Q4H #1 box Patient Education Materials: Bronchospasm (ED), Rib Contusion (ED) Referrals: Corey Garay MD [Primary Care Provider] - 3 Days
[2017-06-18] MEDS ORDERED: Albuterol/Ipratropium NEB.SOL* Albuterol 2.5 MG/Ipratropium 0.5 MG 3 ML INH ONE (13:07)
--- NOTE | 2017-06-18 13:29 | RAD ---
HISTORY: Sore throat, cough, follow-up injury COMPARISONS: June 14, 2017 VIEWS: 4: Frontal dual-energy and lateral views of the chest. FINDINGS: CARDIOMEDIASTINAL SILHOUETTE: The cardiomediastinal silhouette is normal. FIDEL: The fidel are normal. PLEURA: The costophrenic angles are sharp. No pleural abnormalities are noted. LUNG PARENCHYMA: The lungs are clear. ABDOMEN: The upper abdomen is clear. There is no subphrenic gas. BONES AND SOFT TISSUES: No bone or soft tissue abnormalities are noted. OTHER: None. IMPRESSION: NO ACTIVE CARDIOPULMONARY DISEASE.
== END 2017-06-18 14:29 | disposition home or self-care (01) ==
LOC: UCEAST 12:43
DX: S20.212A Contusion of left front wall of thorax, initial encounter (principal); W18.09XA Striking against other object with subsequent fall, initial encounter; Y93.9 Activity, unspecified; Y92.9 Unspecified place or not applicable; J45.909 Unspecified asthma, uncomplicated; E78.5 Hyperlipidemia, unspecified; I25.10 Atherosclerotic heart disease of native coronary artery without angina pectoris; I10 Essential (primary) hypertension; Z95.5 Presence of coronary angioplasty implant and graft; K21.9 Gastro-esophageal reflux disease without esophagitis; Z77.22 Contact with and (suspected) exposure to environmental tobacco smoke (acute) (chronic)
CPT/HCPCS: 71020; 99212; A9270-GY; G0463

== ENCOUNTER 2017-11-02 22:16 | Emergency (ER) | payer MEDICARE ==
[2017-11-03] MEDS ORDERED: Meclizine TAB* 12.5 MG PO ONE (01:14)
[2017-11-03 02:36] VITALS: BP 113/63
--- NOTE | 2017-11-03 08:16 | RAD ---
INDICATION: Dizziness and nausea COMPARISON: None. TECHNIQUE: Contiguous axial sections of the brain were obtained from the skull base to the vertex without contrast. FINDINGS: The ventricles, cisterns and sulci are within normal limits. There is a mild degree of periventricular and subcortical white matter hypoattenuation. Otherwise the nance-white matter differentiation is adequately maintained and there is no sulcal effacement. No significant focal abnormality or mass effect is present. There is no evidence for intracranial hemorrhage. No significant focal osseous abnormality is present. The visualized portion of the paranasal sinuses appear clear. The mastoid air cells are well aerated bilaterally. IMPRESSION: No CT apparent acute intracranial abnormality.
--- NOTE | 2017-11-03 16:05 | ED ---
Kamran Goode Gabriel, scribed for Jim Castellano MD on 11/03/17 at 0113 . Dizziness - HPI Summary HPI Summary: This patient is a 82 year old M presenting to [facility] with a chief complaint of dizziness the began at 1999. Pt was watching tv and when he went to lay down and began to feel the room began to spin. Patient reports nausea and diaphoresis. Symptoms alleviated by spontaneously, currently he is asymptomatic. Pt denies any headache, vision changes, head trauma, earache, URI symptoms or vomiting. - History Of Current Complaint Chief Complaint: EDDizziness Stated Complaint: DIZZY/NAUSEA Time Seen by Provider: 11/03/17 00:51 Hx Obtained From: Patient Onset/Duration: Resolved, Suddenly Timing: Intermittent Episode Lasting Severity Initially: Moderate Severity Currently: None Character: Room Spinning Aggravating Factor(s): Supine To Erect Associated Signs And Symptoms: Positive: Negative, Diaphoresis - Allergies/Home Medications Allergies/Adverse Reactions: Allergies Allergy/AdvReac Type Severity Reaction Status Date / Time Cow hair Allergy Intermediate Itching Uncoded 11/02/17 22:29 dust Allergy Unknown Uncoded 11/02/17 22:29 Reaction Details PMH/Surg Hx/FS Hx/Imm Hx Endocrine/Hematology History: Reports: Hx Anemia - ON IRON 3X WEEKLY Denies: Hx Diabetes, Hx Thyroid Disease Cardiovascular History: Reports: Hx Angina, Hx Coronary Artery Disease, Hx Hypercholesterolemia, Hx Hypertension, Hx Syncope, Other Cardiovascular Problems /Disorders - HIGH BLOOD PRESSURE Denies: Hx Myocardial Infarction, Hx Valvular Heart Disease Respiratory History: Reports: Hx Asthma, Hx Chronic Obstructive Pulmonary Disease (COPD), Hx Pneumonia, Other Respiratory Problems/Disorders - HX OF COPD GI History: Reports: Hx Gastroesophageal Reflux Disease Denies: Hx Ulcer Musculoskeletal History: Reports: Hx Arthritis - HANDS,HIPS, Hx Rheumatoid Arthritis Sensory History: Reports: Hx Contacts or Glasses - NOT WITH THE PT, Hx Deafness Denies: Hx Cataracts - REMOVED, Hx Hearing Aid Opthamlomology History: Reports: Hx Contacts or Glasses - NOT WITH THE PT Denies: Hx Cataracts - REMOVED Psychiatric History: Reports: Hx Substance Abuse - quit drinking a 6 pack a day last month. - Surgical History Surgery Procedure, Year, and Place: CARDIAC STENT =2007. right rotator cuff. Right leh Hx Anesthesia Reactions: No - Immunization History Date of Tetanus Vaccine: unk Date of Influenza Vaccine: unk Infectious Disease History: No Infectious Disease History: Denies: Hx Clostridium Difficile, Hx Hepatitis, Hx Human Immunodeficiency Virus (HIV), Hx of Known/Suspected MRSA, Hx Shingles, Hx Tuberculosis, Hx Known/ Suspected VRE, Hx Known/Suspected VRSA, History Other Infectious Disease, Traveled Outside the [place] in Last 30 Days - Family History Known Family History: Positive: Hypertension - Social History Alcohol Use: Daily Alcohol Amount: "usually 4-5" daily Hx Substance Use: No Substance Use Type: Reports: None Hx Tobacco Use: No Smoking Status (MU): Never Smoked Tobacco Have You Smoked in the Last Year: No Review of Systems Positive: Skin Diaphoresis Positive: Nausea Neurological: Other - dizziness All Other Systems Reviewed And Are Negative: Yes Physical Exam - Summary Physical Exam Summary: Appearance: Well-appearing, no distress, Well-nourished Skin: Warm, color reflects adequate perfusion Head: Normal Head/Face inspection Eyes: Conjunctiva clear; no nystagmus ENT: Normal inspection; TM clear Neck: Supple, no nodes, no JVD. Respiratory: Lungs clear, Normal breath sounds, no respiratory distress Cardio: RRR, No murmur, pulses normal, brisk capillary refill Abdomen: soft, nontender, no guarding, no rebound Bowel sounds: present Musculoskeletal: Strength Intact/ ROM intact. No calf tenderness. No edema. Neuro: Alert, muscle tone normal, facial symmetry, speech normal, sensory/motor intact, CN intact II-XII; cerebellar normal; no gait ataxia Psychological: Normal GCS: 15 Triage Information Reviewed: Yes Vital Signs On Initial Exam: Initial Vitals Temp Pulse Resp BP Pulse Ox 97.7 F 63 18 120/92 97 11/02/17 22:25 11/02/17 22:25 11/02/17 22:25 11/02/17 22:25 11/02/17 22:25 Vital Signs Reviewed: Yes Diagnostics - Vital Signs Vital Signs Temp Pulse Resp BP Pulse Ox 11/03/17 00:30 55 20 140/63 97 11/03/17 00:28 65 24 96 11/03/17 00:26 162/72 11/02/17 22:25 97.7 F 63 18 120/92 97 - Laboratory Lab Statement: Any lab studies that have been ordered have been reviewed, and results considered in the medical decision making process. - CT CT Head CT Interpretation Completed By: ED Physician - No acute disease process - EKG 22:36 Cardiac Rate: NL EKG Rhythm: Sinus Rhythm EKG Interpretation: LAD, RBBB, normal T waves, No ST/T wave changes Re-Evaluation - Re-Evaluation First Eval Change: Improved - pt resting comfortably in bed. pt's vertigo resolved. pt repeat Cn exam intact II-XII; pt ambulatory without ataxia or difficulty. Dizzy Course/Dx - Diagnoses Differential Diagnosis/HQI/PQRI: Anxiety, Benign Paroxysmal Positional Vertigo, Dysrhythmia, Labyrinthitis, Transient Ischemic Attack, Vasovagal Reaction Provider Diagnoses: Vertigo Discharge - Discharge Plan Condition: Improved Disposition: HOME Prescriptions: Meclizine TAB* [Antivert 12.5 TAB*] 25 mg PO TID PRN 7 Days #10 tab PRN Reason: Vertigo Patient Education Materials: Vertigo (ED) Referrals: Corey Garay MD [Primary Care Provider] - 2 Days The documentation as recorded by the Kamran roger Gabriel accurately reflects the service I personally performed and the decisions made by Gray sharp Omari A, MD.
== END 2017-11-03 02:46 | disposition home or self-care (01) ==
LOC: ED 22:16
DX: R42 Dizziness and giddiness (principal); R11.0 Nausea; I25.10 Atherosclerotic heart disease of native coronary artery without angina pectoris; Z86.79 Personal history of other diseases of the circulatory system; Z87.09 Personal history of other diseases of the respiratory system
CPT/HCPCS: 70450; 93005; 99283; A9270-GY

== ENCOUNTER 2018-01-24 18:26 | Emergency (ER) | payer MEDICARE ==
[2018-01-24 18:42] VITALS: BP 118/75
--- NOTE | 2018-01-24 19:53 | UC ---
Abdominal Pain Male HPI - HPI Summary HPI Summary: Patient here accompanied by granddaughter complaining of watery diarrhea that started yesterday afternoon. He denies fever. No nausea or vomiting. Has had 5-6 episodes today but reports he feels better now than he did yesterday. He drinks 4-5 beers per day and states he only came in because his thought he might be dehydrated. No recent travel or antibiotic use. No change in medications. - History of Current Complaint Chief Complaint: UCGI Stated Complaint: DIARRHEA Time Seen by Provider: 01/24/18 19:36 Hx Obtained From: Patient, Family/Splunk Developer - GRANDDAUGHTER Onset/Duration: Gradual Onset, Lasting Days - 1 DAY, Still Present Timing: Constant Severity Initially: Moderate Severity Currently: Moderate Pain Intensity: 5 Pain Scale Used: 0-10 Numeric Character: Cramping Aggravating Factor(s): Nothing Associated Signs And Symptoms: Positive: Decreased Appetite, Diarrhea. Negative : Fever, Back Pain, Constipation, Blood in Stool, Urinary Symptoms, Nausea, Vomiting - Allergies/Home Medications Allergies/Adverse Reactions: Allergies Allergy/AdvReac Type Severity Reaction Status Date / Time Cow hair Allergy Intermediate Itching Uncoded 01/24/18 18:43 dust Allergy Unknown Uncoded 01/24/18 18:43 Reaction Details Home Medications: Home Medications Bismuth Subsalicylate [Pepto-Bismol] 525 mg PO PRN 01/24/18 [History] PMH/Surg Hx/FS Hx/Imm Hx Cardiovascular History: Cardiac Disease, Hypertension Respiratory History: COPD, Asthma - Surgical History Surgical History: Yes Surgery Procedure, Year, and Place: CARDIAC STENT =2007. right rotator cuff. Right leg - Family History Known Family History: Positive: Hypertension - Social History Alcohol Use: Daily Alcohol Amount: 4-5 daily Substance Use Type: None Smoking Status (MU): Never Smoked Tobacco Have You Smoked in the Last Year: No Household Exposure Type: Cigars - Immunization History Most Recent Influenza Vaccination: fall 2015 Most Recent Pneumonia Vaccination: never Review of Systems Constitutional: Negative Respiratory: Negative Cardiovascular: Negative Gastrointestinal: Diarrhea Genitourinary: Negative All Other Systems Reviewed And Are Negative: Yes Physical Exam Triage Information Reviewed: Yes Appearance: Well-Appearing, No Pain Distress, Well-Nourished, Other: - MUCOUS MEMBRANES MOIST Vital Signs: Initial Vital Signs Temp 98.5 F 01/24/18 18:38 Pulse 91 01/24/18 18:38 Resp 18 01/24/18 18:38 BP 118/75 01/24/18 18:38 Pulse Ox 98 01/24/18 18:38 Vital Signs Reviewed: Yes Eyes: Positive: Conjunctiva Clear ENT: Positive: Hearing grossly normal Neck: Positive: Supple Respiratory Exam: Normal Cardiovascular Exam: Normal Abdomen Description: Positive: Nontender, Soft, Distended. Negative: CVA Tenderness (R), CVA Tenderness (L), Guarding Bowel Sounds: Positive: Present Musculoskeletal: Positive: No Edema Neurological: Positive: Alert Psychological: Positive: Age Appropriate Behavior Skin: Negative: rashes Abd Pain Male Course/Dx - Differential Dx/Clinical Impression Provider Diagnoses: ACUTE DIARRHEA Discharge - Sign-Out/Discharge Documenting (check all that apply): Discharge/Admit/Transfer - Discharge Plan Condition: Stable Disposition: HOME Patient Education Materials: Acute Diarrhea (ED) Referrals: Corey Garay MD [Primary Care Provider] - If Needed Additional Instructions: YOU LOOK GOOD ON EXAM TODAY. NO SIGNS OF DEHYDRATION AT PRESENT. I RECOMMEND YOU DECREASE YOUR ALCOHOL CONSUMPTION AND INCREASE YOUR WATER INTAKE. IF YOU DEVELOP WORSENING DIARRHEA, VOMITING, FEVER OR ANY OTHER CONCERNING SYMPTOMS [place] [facility] [place]. ENSURE ADEQUATE HYDRATION. CLEAR LIQUIDS, BLAND DIET. AVOID CAFFEINE, DAIRY, GREASY, SPICY FOODS. ONCE YOU ARE TOLERATING CLEAR LIQUIDS YOU CAN ADVANCE TO SIMPLE, BLAND FOODS. IF YOUR SYMPTOMS DO NOT IMPROVE YOU MAY NEED STOOL STUDIES. RETURN HERE OR FOLLOW-UP WITH YOUR PCP. - Billing Disposition and Condition Condition: STABLE Disposition: Home
== END 2018-01-24 20:00 | disposition home or self-care (01) ==
LOC: UCEAST 18:26
DX: R19.7 Diarrhea, unspecified (principal); I25.10 Atherosclerotic heart disease of native coronary artery without angina pectoris; I10 Essential (primary) hypertension; J44.9 Chronic obstructive pulmonary disease, unspecified; Z95.5 Presence of coronary angioplasty implant and graft; Z82.49 Family history of ischemic heart disease and other diseases of the circulatory system
CPT/HCPCS: 99212; G0463

== ENCOUNTER 2018-03-25 03:55 | Observation (INO) | payer MEDICARE ==
[2018-03-25] MEDS ORDERED: methylPREDNISolone 125 MG* 2 ML VIAL IV ONE (04:15)
[2018-03-25] MEDS ORDERED: Albuterol/Ipratropium NEB.SOL* Albuterol 2.5 MG/Ipratropium 0.5 MG 3 ML INH ONE (04:15)
[2018-03-25] MEDS ORDERED: Magnesium Sulfate 2 GM IV* 2 GM/50 ML BAG IVPB ONE (04:15)
[2018-03-25] MEDS: Albuterol 2.5 MG/3 ML NEB.SOL* (0.083%) INH SCH ×2 (04:35→05:09)
[2018-03-25 04:45] LABS: ABS Basophils 0 10^3/ul (0-0.2); ABS Eosinophils 0.3 10^3/ul (0-0.6); ABS Lymphocytes 1.1 10^3/ul (1.0-4.8); ABS Monocytes 0.8 10^3/ul (0-0.8); ABS Neutrophils 3.3 10^3/ul (1.5-7.7); ABS Nucleated RBC 0 10^3/ul; Eosinophil % 5.3 % (0-6); Hematocrit 40 % (42-52); Hemoglobin 13.5 g/dl (14.0-18.0); Mean Corpuscular HGB Conc 34 g/dl (31-36); Mean Corpuscular Hemoglobin 31 pg (27-31); Mean Corpuscular Volume 90 fL (80-94); Mean Platelet Volume 7.7 um3 (7.4-10.4); Nucleated Red Blood Cells % 0; Platelet Count 217 10^3/ul (150-450); Red Blood Count 4.41 10^6/ul (4.00-5.40); Red Cell Distribution Width 15 % (10.5-15); White Blood Count 5.5 10^3/ul (3.5-10.8)
[2018-03-25 04:54] LABS: INR 0.82 (0.77-1.02)
[2018-03-25 05:04] LABS: EGFR Non-African American 111.9 (>60)
[2018-03-25] MEDS ORDERED: Iohexol 350* (CONTRAST) 500 ML MDV IV ONE (06:21)
--- NOTE | 2018-03-25 07:18 | ED ---
Respiratory - HPI Summary HPI Summary: This is acacia Casey documenting for Dr. Kleber Duenas MD. Pt is 82 y/o M who presents to ED c/o difficulty breathing. He saw Dr. Gomez last week and was told everything was normal but a few days ago the symptoms got worse. Last night he was panting just while watching television and his nebulizer didnt help. Doesnt use oxygen at home. Denies pain, fever, or sweating, but he does note that he feels warm. PSHx of coronary stent. - History of Current Complaint Chief Complaint: EDShortnessOfBreath Stated Complaint: SOB Time Seen by Provider: 03/25/18 04:03 Hx Obtained From: Patient Onset/Duration: Lasting Days, Worse Since - few days ago Current Severity: None Pain Intensity: 0 Character: Dyspnea at Rest Sputum Amount: None Associated Signs and Symptoms: Fever - NEGATIVE - Allergy/Home Medications Allergies/Adverse Reactions: Allergies Allergy/AdvReac Type Severity Reaction Status Date / Time Cow hair Allergy Intermediate Itching Uncoded 03/25/18 04:15 dust Allergy Unknown Uncoded 03/25/18 04:15 Reaction Details PMH/Surg Hx/FS Hx/Imm Hx Endocrine/Hematology History: Reports: Hx Anemia - ON IRON 3X WEEKLY Denies: Hx Diabetes, Hx Thyroid Disease Cardiovascular History: Reports: Hx Angina, Hx Coronary Artery Disease, Hx Hypercholesterolemia, Hx Hypertension, Hx Syncope, Other Cardiovascular Problems /Disorders - HIGH BLOOD PRESSURE Denies: Hx Myocardial Infarction, Hx Valvular Heart Disease Respiratory History: Reports: Hx Asthma, Hx Chronic Obstructive Pulmonary Disease (COPD), Hx Pneumonia, Other Respiratory Problems/Disorders - HX OF COPD GI History: Reports: Hx Gastroesophageal Reflux Disease Denies: Hx Ulcer Musculoskeletal History: Reports: Hx Arthritis - HANDS,HIPS, Hx Rheumatoid Arthritis Sensory History: Reports: Hx Contacts or Glasses - NOT WITH THE PT, Hx Deafness Denies: Hx Cataracts - REMOVED, Hx Hearing Aid Opthamlomology History: Reports: Hx Contacts or Glasses - NOT WITH THE PT Denies: Hx Cataracts - REMOVED Psychiatric History: Reports: Hx Substance Abuse - quit drinking a 6 pack a day last month. - Surgical History Surgery Procedure, Year, and Place: CARDIAC STENT =2007. right rotator cuff. Right leg Hx Anesthesia Reactions: No - Immunization History Date of Tetanus Vaccine: unk Date of Influenza Vaccine: unk Infectious Disease History: No Infectious Disease History: Reports: Hx Shingles Denies: Hx Clostridium Difficile, Hx Hepatitis, Hx Human Immunodeficiency Virus (HIV), Hx of Known/Suspected MRSA, Hx Tuberculosis, Hx Known/Suspected VRE , Hx Known/Suspected VRSA, History Other Infectious Disease, Traveled Outside the [place] in Last 30 Days - Family History Known Family History: Positive: Hypertension - Social History Alcohol Use: Daily Alcohol Amount: 4-5 daily Hx Substance Use: No Substance Use Type: Reports: None Hx Tobacco Use: No Smoking Status (MU): Never Smoked Tobacco Have You Smoked in the Last Year: No Review of Systems Positive: Other - Negative: pain. Negative: Fever, Skin Diaphoresis Positive: Other - difficulty breathing All Other Systems Reviewed And Are Negative: Yes Physical Exam - Summary Physical Exam Summary: VITAL SIGNS: Reviewed. GENERAL: Patient is a well-developed and nourished male who is lying comfortable in the stretcher. Patient is not in any acute respiratory distress. HEAD AND FACE: No signs of trauma. No ecchymosis, hematomas or skull depressions. No sinus tenderness. EYES: PERRLA, EOMI x 2, No injected conjunctiva, no nystagmus. EARS: Hearing grossly intact. Ear canals and tympanic membranes are within normal limits. MOUTH: Oropharynx within normal limits. NECK: Supple, trachea is midline, no adenopathy, no JVD, no carotid bruit, no c- spine tenderness, neck with full ROM. CHEST: Symmetric, no tenderness at palpation LUNGS: Decreased breath sounds bilaterally. Minimal expiratory wheezes. Clear to auscultation bilaterally. No crackles. CVS: Regular rate and rhythm, S1 and S2 present, no murmurs or gallops appreciated. ABDOMEN: Soft, non-tender. No signs of distention. No rebound no guarding, and no masses palpated. Bowel sounds are normal. EXTREMITIES: FROM in all major joints, no edema, no cyanosis or clubbing. NEURO: Alert and oriented x 3. No acute neurological deficits. Speech is normal and follows commands. SKIN: Dry and warm Triage Information Reviewed: Yes Vital Signs On Initial Exam: Initial Vitals Temp Pulse Resp BP Pulse Ox 98 F 95 40 180/86 96 03/25/18 03:58 03/25/18 03:58 03/25/18 03:58 03/25/18 03:58 03/25/18 03:58 Vital Signs Reviewed: Yes Diagnostics - Vital Signs Vital Signs Temp Pulse Resp BP Pulse Ox 03/25/18 06:02 68 16 137/73 85 03/25/18 06:00 82 23 92 03/25/18 05:32 91 27 148/72 90 03/25/18 05:12 84 100 03/25/18 05:02 95 20 136/86 96 03/25/18 05:00 90 31 96 03/25/18 04:44 79 22 144/88 96 03/25/18 04:39 83 100 03/25/18 04:32 76 98 03/25/18 04:02 81 29 157/91 94 03/25/18 03:58 98 F 95 40 180/86 96 - Laboratory Lab Results: Lab Results 03/25/18 03/25/18 03/25/18 Range/Units 04:31 04:31 04:31 WBC 5.5 (3.5-10.8) 10^3/ul RBC 4.41 (4.00-5.40) 10^6/ul Hgb 13.5 L (14.0-18.0) g/dl Hct 40 L (42-52) % MCV 90 (80-94) fL MCH 31 (27-31) pg MCHC 34 (31-36) g/dl RDW 15 (10.5-15) % Plt Count 217 (150-450) 10^3/ul MPV 7.7 (7.4-10.4) um3 Neut % (Auto) 59.9 (38-83) % Lymph % (Auto) 20.0 L (25-47) % Nelson % (Auto) 14.1 H (0-7) % Eos % (Auto) 5.3 (0-6) % Baso % (Auto) 0.7 (0-2) % Absolute Neuts (auto) 3.3 (1.5-7.7) 10^3/ul Absolute Lymphs (auto) 1.1 (1.0-4.8) 10^3/ul Absolute Monos (auto) 0.8 (0-0.8) 10^3/ul Absolute Eos (auto) 0.3 (0-0.6) 10^3/ul Absolute Basos (auto) 0 (0-0.2) 10^3/ul Absolute Nucleated RBC 0 10^3/ul Nucleated RBC % 0 INR (Anticoag Therapy) 0.82 (0.77-1.02) APTT 26.3 (26.0-36.3) seconds ABG pH (7.35-7.45) ABG pCO2 (35-45) mmHg ABG pO2 (80-100) mmHg ABG HCO3 (19-31) mmol/L ABG O2 Saturation (95-98) % ABG Base Excess (-2.0-2.0) Sodium 140 (135-145) mmol/L Potassium 3.6 (3.5-5.0) mmol/L Chloride 107 (101-111) mmol/L Carbon Dioxide 23 (22-32) mmol/L Anion Gap 10 (2-11) mmol/L BUN 10 (6-24) mg/dL Creatinine 0.68 (0.67-1.17) mg/dL Est GFR ( Amer) 135.4 (>60) Est GFR (Non-Af Amer) 111.9 (>60) BUN/Creatinine Ratio 14.7 (8-20) Glucose 93 (70-100) mg/dL Calcium 8.9 (8.6-10.3) mg/dL Total Bilirubin 0.50 (0.2-1.0) mg/dL AST 32 (13-39) U/L ALT 46 (7-52) U/L Alkaline Phosphatase 132 H (34-104) U/L Troponin I 0.00 (<0.04) ng/mL Total Protein 6.8 (6.4-8.9) g/dL Albumin 4.0 (3.2-5.2) g/dL Globulin 2.8 (2-4) g/dL Albumin/Globulin Ratio 1.4 (1-3) 03/25/18 Range/Units 05:50 WBC (3.5-10.8) 10^3/ul RBC (4.00-5.40) 10^6/ul Hgb (14.0-18.0) g/dl Hct (42-52) % MCV (80-94) fL MCH (27-31) pg MCHC (31-36) g/dl RDW (10.5-15) % Plt Count (150-450) 10^3/ul MPV (7.4-10.4) um3 Neut % (Auto) (38-83) % Lymph % (Auto) (25-47) % Nelson % (Auto) (0-7) % Eos % (Auto) (0-6) % Baso % (Auto) (0-2) % Absolute Neuts (auto) (1.5-7.7) 10^3/ul Absolute Lymphs (auto) (1.0-4.8) 10^3/ul Absolute Monos (auto) (0-0.8) 10^3/ul Absolute Eos (auto) (0-0.6) 10^3/ul Absolute Basos (auto) (0-0.2) 10^3/ul Absolute Nucleated RBC 10^3/ul Nucleated RBC % INR (Anticoag Therapy) (0.77-1.02) APTT (26.0-36.3) seconds ABG pH 7.42 (7.35-7.45) ABG pCO2 36 (35-45) mmHg ABG pO2 59 L* (80-100) mmHg ABG HCO3 24.2 (19-31) mmol/L ABG O2 Saturation 93.3 L (95-98) % ABG Base Excess -0.7 (-2.0-2.0) Sodium (135-145) mmol/L Potassium (3.5-5.0) mmol/L Chloride (101-111) mmol/L Carbon Dioxide (22-32) mmol/L Anion Gap (2-11) mmol/L BUN (6-24) mg/dL Creatinine (0.67-1.17) mg/dL Est GFR ( Amer) (>60) Est GFR (Non-Af Amer) (>60) BUN/Creatinine Ratio (8-20) Glucose (70-100) mg/dL Calcium (8.6-10.3) mg/dL Total Bilirubin (0.2-1.0) mg/dL AST (13-39) U/L ALT (7-52) U/L Alkaline Phosphatase (34-104) U/L Troponin I (<0.04) ng/mL Total Protein (6.4-8.9) g/dL Albumin (3.2-5.2) g/dL Globulin (2-4) g/dL Albumin/Globulin Ratio (1-3) Result Diagrams: 03/25/18 04:31 03/25/18 04:31 Lab Statement: Any lab studies that have been ordered have been reviewed, and results considered in the medical decision making process. - EKG 03:59 Cardiac Rate: NL - 85 bpm EKG Rhythm: Sinus Rhythm EKG Interpretation: RBBB Re-Evaluation - Re-Evaluation First Eval Re-Evaluation Time: 07:25 Change: Unchanged Comment: Patients lungs are diminished there are crackles in the left base only. He reports the sx are similar to when he had a cardiac stent placed 10 years ago. Disposition - Course Course Of Treatment: Pt is 82 y/o M who presents to ED c/o difficulty breathing. He saw Dr. Gomez last week and was told everything was normal but a few days ago the symptoms got worse. Last night he was panting just while watching television and his nebulizer didnt help. Doesnt use oxygen at home. Denies pain, fever, or sweating, but he does note that he feels warm. PSHx of coronary stent. Physical exam reveals decreased breath sounds bilaterally and minimal expiratory wheezes. In the ED course he was given albuterol, Ativan, and solu-MEDROL. EKG taken at 03:59 shows sinus rhythm at 85 bpm and RBBB. Pt is being signed out to Dr. Dill awaiting CAT scan. - Diagnoses Provider Diagnoses: COPD exacerbation, Hypoxia Discharge - Sign-Out/Discharge Documenting (check all that apply): Patient Departure - Admit Signing out patient TO: Ferny Dill - Discharge Plan Condition: Fair Disposition: ADMITTED TO [facility]
[2018-03-25] MEDS ORDERED: LORazepam TAB(*) 1 MG PO ONE (07:20)
--- NOTE | 2018-03-25 07:25 | ED ---
Progress - Progress Note Progress Note: This patient was signed out from Dr. Duenas awaiting CT Chest. CT chest reveals per radiology no acute findings. No pulmonary embolism. Dr. Dill has reviewed this report. We discussed patient care with the hospitalist and they accepted the patient for admission. The patient will be admitted. Re-Evaluation - Re-Evaluation First Eval Re-Evaluation Time: 07:25 Change: Unchanged Comment: Patients lungs are diminished there are crackles in the left base only. He reports the sx are similar to when he had a cardiac stent placed 10 years ago. Course/Dx - Course Course Of Treatment: Showed significant hypoxia heavy wheezing with PO2 of 59. Requires oxygen. O2 sats mid 90s on 2 L of oxygen. Fine crackles in the left base. BNP pending. No peripheral edema. No longer wheezing but has diminished breath sounds. Received breathing treatments, steroids and IV magnesium. Discussed with the hospitalist who will admit. - Diagnoses Provider Diagnoses: COPD exacerbation, Hypoxia - Provider Notifications Discussed Care Of Patient With: Adan Dugan Time Discussed With Above Provider: 07:30 Instructed by Provider To: Admit As Inpatient - Critical Care Time Critical Care Time: 30-74 min - CCT is EXCLUSIVE of separately billable procedures. Discharge - Sign-Out/Discharge Documenting (check all that apply): Patient Departure - admitted , Receiving Sign-Out Receiving patient FROM: Kleber Duenas - Discharge Plan Condition: Fair Disposition: ADMITTED TO [facility] Referrals: Corey Garay MD [Primary Care Provider] - - Billing Disposition and Condition Condition: FAIR Disposition: Admitted to [facility]
[2018-03-25] MEDS ORDERED: Azithromycin IV(*) 500 MG in NS 0.9% 250 ML* 250 ML IVPB ONE (07:26)
[2018-03-25] MEDS ORDERED: Ondansetron INJ* 2 MG/ML VIAL IV PRN (08:12)
[2018-03-25] MEDS ORDERED: Morphine INJ* 2 MG/ML 1 ML SYRINGE (TWO MG - NEW SYRINGE VERSION) IV PRN (08:12)
[2018-03-25] MEDS ORDERED: Albuterol/Ipratropium NEB.SOL* Albuterol 2.5 MG/Ipratropium 0.5 MG 3 ML INH PRN (08:12)
[2018-03-25] MEDS ORDERED: Acetaminophen TAB* 325 MG PO PRN (08:12)
[2018-03-25] MEDS ORDERED: NS 0.9% 1000 ML* 1,000 ML IV SCH (08:15)
--- NOTE | 2018-03-25 08:34 | RAD ---
Indication: Shortness of breath. Single frontal view of the chest performed at 0430 hours was reviewed. Comparison is made with previous exam dated June 18, 2017. No mediastinal shift is noted. Heart is of normal size and configuration. Lung burns appear clear. IMPRESSION: NO ACTIVE CARDIOPULMONARY DISEASE IS NOTED. R0
--- NOTE | 2018-03-25 09:38 | RAD ---
Indication: Pulmonary embolus. Contrast: Administered 64.1 ml of Contrast -- mg/ml CTA of the chest performed after IV contrast administration. Coronal and sagittal reconstructed images were obtained. Comparison is made with previous exam dated June 20, 2017. Pulmonary arterial tree is well opacified. No filling defects are present to suggest pulmonary embolus. Aorta demonstrates no evidence of aortic dissection although atherosclerotic aorta is noted. No aneurysmal dilatation is noted. The inferior thyroid lobes are unremarkable. Small 5 mm AP window lymph nodes and prevascular space lymph nodes are noted. Right hilar lymph nodes measuring up to 6 mm is noted. Overall this is not significantly changed in size since June 20, 2017. The heart demonstrates no pericardial effusion. The trachea and major bronchi appear patent. Dependent changes are noted in the lung burns. No alveolar consolidation is noted. The visualized abdominal organs are otherwise unremarkable. IMPRESSION: No definite pulmonary embolism is noted. No definite evidence of thoracic aortic dissection is noted.
[2018-03-25] MEDS: Senna TAB PO SCH ×2 (11:03→21:32)
[2018-03-25] MEDS: Tamsulosin CAP* 0.4 MG PO SCH (11:03)
[2018-03-25] MEDS: methylPREDNISolone SOD 40 MG* 1 ML VIAL IV SCH ×2 (11:03→16:55)
[2018-03-25] MEDS: Omeprazole CAP* 20 MG PO SCH (11:03)
[2018-03-25] MEDS: Aspirin EC TAB* 81 MG TAB.EC PO SCH (11:03)
[2018-03-25] MEDS: Metoprolol Succinate XL TAB* 25 MG PO SCH (11:03)
[2018-03-25] MEDS: amLODIPine TAB* 5 MG PO SCH (11:03)
[2018-03-25] MEDS: Heparin VIAL(*) 5000 UNITS/ML VIAL (FIVE THOUSAND) SUBCUT SCH ×2 (14:59→21:32)
[2018-03-25] MEDS ORDERED: Furosemide IV* 10 MG/ML 2 ML VIAL (20 MG) IV ONE (16:02)
[2018-03-25] MEDS ORDERED: Potassium Chlor TAB* 10 MEQ TAB.ER PO ONE (16:04)
[2018-03-25] MEDS ORDERED: Atorvastatin* 80 MG TAB PO SCH (18:00)
--- NOTE | 2018-03-25 20:10 | HP ---
CC: Dr. Corey Garay * ADMISSION HISTORY AND PHYSICAL: DATE OF ADMISSION: 03/25/18 TIME OF MY EVALUATION: 11 a.m. PRIMARY CARE PROVIDER: Dr. Corey Garay. CHIEF COMPLAINT: Shortness of breath/difficulty breathing. HISTORY OF PRESENT ILLNESS: Mr. Solomon is a pleasant 82-year-old gentleman with a past medical history of COPD with frequent exacerbations, usually handled in the outpatient setting, who presents with 2 days of shortness of breath that is getting worse. The patient saw his social media marketing specialist, Dr. Gomez, last week and was given a good review with respect to his cardiology conditions. The night prior to admission, however, the patient was watching television and experiencing increasing shortness of breath while at rest. The patient used his nebulizer, but he did not experience relief. The patient does not normally use oxygen at home. The patient ultimately came to the emergency room when his nebulizers were not working. The patient does have a history of coronary disease status post cardiac stent in 2007. He states that he had some mild chest discomfort. The patient was evaluated in the emergency room many hours after the onset of symptoms and his troponin was 0 at that time. A BNP was checked and it was only 80. The patient's blood gas was checked and he did have an oxygen level of 59. The remainder of his ABG was as follows: 7.42/36/ 59 (pO2). Mr. Solomon was administered oxygen and felt better at that time. His saturations were down into the 80s. The patient had generally normal vital signs otherwise. He received DuoNeb treatments and he did better, but was not back at baseline and still required oxygen to be above 90% saturation. The patient was referred to the hospitalist group for admission. PAST MEDICAL HISTORY: 1. Coronary disease. 2. Status post coronary stent in [place] in 2007. 3. Hypertension. 4. COPD. 5. Hyperlipidemia. 6. GERD. ADDITIONAL MEDICAL HISTORY: The patient reports a history of COPD flares every few months and is usually treated in the outpatient setting with low-dose oral regimen of prednisone and a few days of antibiotics (he does not know which one) . Currently, undergoing workup for an elevated PSA value of 19. The patient had biopsies of his prostate. I do not know the results of those tests. He is due for a followup PSA and cholesterol screening test next week in the outpatient setting. PAST SURGICAL HISTORY: Includes rotator cuff surgery and knee surgery. OUTPATIENT MEDICATIONS: 1. Albuterol inhaler 1 puff every 4 hours as needed for shortness of breath or wheezing. 2. Norvasc 5 mg by mouth daily. 3. Lipitor 80 mg by mouth in the evening. 4. Aspirin 81 mg by mouth daily. 5. Metoprolol XL 25 mg by mouth daily. 6. Singulair 10 mg by mouth at bedtime. 7. Prilosec 20 mg by mouth daily. 8. Flomax 0.4 mg by mouth daily. ALLERGIES: No known drug allergies. FAMILY HISTORY: Significant for mother with Alzheimer's dementia. 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 The patient drank 3 to 4 beers daily for many years and up to a 6-pack up to a few weeks ago. The patient denies any history of withdrawal. There is no history of illicit drug use. Surrogate decision maker is daughter, Margaret, who could be reached at [phone]. REVIEW OF SYSTEMS: A review of 14 systems was accomplished at the bedside. This was largely negative except for the pertinent positives as mentioned above in the HPI and past medical history. PHYSICAL EXAMINATION ON ADMISSION GENERAL APPEARANCE: Well-dressed, well-nourished, elderly-appearing man, who appears his stated age, no apparent distress at this time, using accessory muscles, but not in extremis. VITAL SIGNS: Temperature 99.4 degrees Fahrenheit at presentation, recheck at 98.1; pulse 75 to 85 and regular; respirations 17 to 24; oxygen saturation 98% on 2 L, he was in the 80s off oxygen; blood pressure 132/82 and consistently in that range. HEENT: Oropharynx is clear. Mucous membranes are moist. No posterior pharyngeal erythema or exudate. No active coughing noted. LYMPH: No adenopathy appreciated throughout. CHEST: Clear breath sounds anteriorly, diminished posteriorly with crackles at the bases. ABDOMEN: Soft and nontender. EXTREMITIES: Without clubbing, cyanosis, or edema. Good dorsalis pedis and tibialis anterior pulses. NEUROLOGICAL: His exam is nonfocal. He moves all extremities equally. He can stand and ambulate. Normal motor proprioception, reflex components without deficiency. PSYCH: Normal affect. No acute anxiety or depression with good medical recall. SKIN: Dry and intact. ADMISSION DATA: Blood gas, as above, pH 7.42, pCO2 36, pO2 59%. This was on either room air or 2 L but demonstrates clear hypoxia. Blood chemistry is generally unremarkable with a sodium of 141, potassium 3.6, chloride 107, bicarb 23, anion gap 10, BUN 10, creatinine 0.68, GMI-lv-oqvvsvmvci ratio is 14.7, glucose 93. Total bilirubin 0.5, AST 32, ALT 46, alk phos 132. Troponin 0 with a recheck of 0.01 four hours later. BNP 80. Total protein 6.8, albumin 4. INR normal at 0.42. White blood cell count normal at 5.5, hemoglobin 13.5, platelets 217. Chest x-ray shows no disease in the pulmonary parenchyma. Chest/thorax CTA showed neither a pulmonary embolism nor any dissection. EKG did not show any evidence of active ischemia. IMPRESSION: Mr. Solomon is an 82-year-old gentleman with known recurrent chronic obstructive pulmonary disease exacerbations who now presents with the same. His shortness of breath has improved, but not back to baseline and his ABG and pulse oximetry readings demonstrate continued hypoxia and requirement of oxygen that is new. I note in reviewing his medical record that he had a similar initial presentation that was later diagnosed as a pneumonia. The patient should be admitted to the hospital on observation to ensure he improves or further pulmonary imaging would be in order. With respect to his chronic obstructive pulmonary disease management, I am going to administer methylprednisolone at 40 mg IV q.8 hours with a crossover to oral prednisone after 3 or 4 doses if the patient seems to be improving. I will provide ongoing DuoNeb treatments to help bronchodilation, and improved airway tone. I will also give IV azithromycin considering there may be an underlying infectious component to this presentation. The patient will receive supplemental oxygen until he can oxygenate normally without that assistance. With respect to alternate explanations of shortness of breath, his longstanding hypertension, coronary artery disease, hyperlipidemia put him at risk for perhaps some element of heart failure. I do not believe this is a prominent part of this presentation but could be contributing. He did have crackles at the bases posteriorly on my exam, and so I am going to give him only 1 dose of Lasix. We should counteract the salt retaining property of the IV steroids. For his borderline low potassium, I am going to give him 1 dose of oral potassium at the same time. He did receive fluids during his admission and they are going to be stopped. BPH/benign prostatic hypertrophy: Check postvoid residual bladder scan to ensure no urinary obstruction before dose of Lasix. Hypertension - continue amlodipine and metoprolol. Hyperlipidemia - continue statin/Lipitor at outpatient doses. Gastroesophageal reflux disease. Continue outpatient omeprazole. Full code. Surrogate decision maker is specified in the social history. Regular outpatient diet as the patient usually tolerates. Observation status for now. We will make decision regarding ability for discharge in the morning on 03/26/18 with likelihood being he can leave the hospital at that time. [id number]/CPS #: [id number] MTDD
[2018-03-25] MEDS ORDERED: Montelukast Sodium TAB* 10 MG PO SCH (21:00)
[2018-03-25] MEDS ORDERED: Benzonatate CAP* 100 MG PO PRN (22:30)
[2018-03-25] MEDS ORDERED: Melatonin 3 MG TAB PO PRN (22:30)
[2018-03-25] MEDS ORDERED: diPHENhydraMINE PO* 25 MG PO PRN (22:30)
[2018-03-26] MEDS: methylPREDNISolone SOD 40 MG* 1 ML VIAL IV SCH (00:47)
[2018-03-26] MEDS: Heparin VIAL(*) 5000 UNITS/ML VIAL (FIVE THOUSAND) SUBCUT SCH (05:17)
[2018-03-26 06:50] LABS: ABS Basophils 0 10^3/ul (0-0.2); ABS Eosinophils 0 10^3/ul (0-0.6); ABS Lymphocytes 0.6 10^3/ul (1.0-4.8); ABS Monocytes 0.5 10^3/ul (0-0.8); ABS Neutrophils 8.7 10^3/ul (1.5-7.7); ABS Nucleated RBC 0 10^3/ul; Eosinophil % 0 % (0-6); Hematocrit 39 % (42-52); Hemoglobin 12.9 g/dl (14.0-18.0); Lymphocyte % 6.4 % (25-47); Mean Corpuscular HGB Conc 33 g/dl (31-36); Mean Corpuscular Hemoglobin 30 pg (27-31); Mean Corpuscular Volume 91 fL (80-94); Mean Platelet Volume 8.4 um3 (7.4-10.4); Nucleated Red Blood Cells % 0; Platelet Count 225 10^3/ul (150-450); Red Blood Count 4.27 10^6/ul (4.00-5.40); Red Cell Distribution Width 15 % (10.5-15); White Blood Count 9.8 10^3/ul (3.5-10.8)
[2018-03-26 07:03] LABS: EGFR Non-African American 87.7 (>60)
[2018-03-26] MEDS ORDERED: Azithromycin IV(*) 500 MG in NS 0.9% 250 ML* 250 ML IVPB SCH (07:30)
[2018-03-26] MEDS ORDERED: predniSONE TAB* 20 MG PO SCH (09:00)
[2018-03-26] MEDS: amLODIPine TAB* 5 MG PO SCH (10:24)
[2018-03-26] MEDS: Tamsulosin CAP* 0.4 MG PO SCH (10:24)
[2018-03-26] MEDS: Senna TAB PO SCH (10:24)
[2018-03-26] MEDS: Omeprazole CAP* 20 MG PO SCH (10:24)
[2018-03-26] MEDS: Metoprolol Succinate XL TAB* 25 MG PO SCH (10:24)
[2018-03-26] MEDS: Aspirin EC TAB* 81 MG TAB.EC PO SCH (10:25)
[2018-03-26 11:33] VITALS: BP 132/74
--- NOTE | 2018-03-27 01:30 | DS ---
CC: Dr. Garay * DISCHARGE SUMMARY: DATE OF ADMISSION: 03/25/18 DATE OF DISCHARGE: 03/26/18 STATUS DURING HOSPITALIZATION: Observation. PRIMARY CARE PHYSICIAN: Dr. Corey Garay, [facility]. DISCHARGE DIAGNOSIS: Chronic obstructive pulmonary disease exacerbation. SECONDARY DIAGNOSES: 1. Coronary artery disease, status post coronary stent since 2007. 2. Hypertension. 3. Baseline chronic obstructive pulmonary disease. 4. Hyperlipidemia. 5. Gastroesophageal reflux disease. DISCHARGE MEDICATIONS: New: 1. Prednisone 20 mg by mouth daily for 10 days, then stop. 2. Azithromycin 500 mg by mouth daily for 5 days, then stop. Continue: 1. Albuterol inhaler 1 puff every 4 hours as needed for shortness of breath/ wheezing. 2. Norvasc 5 mg by mouth daily. 3. Lipitor 80 mg by mouth in the evening. 4. Aspirin 81 mg by mouth daily. 5. Metoprolol XL 25 mg by mouth daily. 6. Singulair 10 mg by mouth at bedtime. 7. Prilosec 20 mg by mouth daily. 8. Flomax 0.4 mg by mouth daily. FOLLOWUP: 1. Dr. Garay this week - could followup pulmonary status. 2. Urology this week as previously described for PSA followup. He also mentioned a cholesterol screening followup at the time of his PSA for which he would need to fast. HISTORY OF PRESENT ILLNESS AND HOSPITAL COURSE: Please see my H and P on . In brief, Mr. Solomon is a pleasant 82-year-old gentleman with a history of frequent COPD exacerbations, who presented with shortness of breath and the same. The patient came to the hospital and did not recover upon receiving nebulizers. The patient had some chest discomfort but his troponin was 0 and the pain was characteristic of his COPD exacerbation historically. Patient had an ABG that demonstrated pO2 of 59, on low flow oxygen and so he was admitted for hypoxia in the setting of COPD exacerbation. The patient did very well overnight. He slept well and was ambulating without oxygen and he was maintaining saturations around 90%. The patient is stable for discharge. He did not meet inpatient status as he promptly recovered in a little over 16 hours. The patient is stable for discharge home, but can come back to the hospital if he has worsening symptoms including but not limited to chest pain, shortness of breath, lightheadedness, or any other worrisome symptoms. Again he is going to follow up with his primary care provider and his urologist later this week. TIME SPENT: Total time taken to discharge Mr. Solomon was 40 minutes, greater than half the time spent at the bedside going over the discharge instructions and explaining the return to ED instructions above. [id number]/CPS #: [id number] KEITH
== END 2018-03-26 12:20 | disposition home or self-care (01) ==
LOC: ED 03:55 → MED 09:06
PROVIDERS: ADMIT Internal Medicine; ATTEND Internal Medicine
DX: J44.1 Chronic obstructive pulmonary disease with (acute) exacerbation (principal); I25.10 Atherosclerotic heart disease of native coronary artery without angina pectoris; Z95.5 Presence of coronary angioplasty implant and graft; E78.5 Hyperlipidemia, unspecified; K21.9 Gastro-esophageal reflux disease without esophagitis; Z79.82 Long term (current) use of aspirin; R06.02 Shortness of breath; I10 Essential (primary) hypertension; R09.02 Hypoxemia
CPT/HCPCS: 36415; 71045; 71275; 80048; 80053; 82803; 83880; 84484; 85025; 85610; 85730; 87040; 93005; 96365; 96366; 96375; 99285; A9270-GY; G0378; J0456; J1644; J1940; J2920; J2930; J3475; J7512; Q9967

== ENCOUNTER 2018-04-07 15:53 | Emergency (ER) | payer MEDICARE ==
[2018-04-07] MEDS ORDERED: Albuterol/Ipratropium NEB.SOL* Albuterol 2.5 MG/Ipratropium 0.5 MG 3 ML INH ONE (16:00)
[2018-04-07] MEDS ORDERED: predniSONE TAB* 20 MG PO ONE (16:01)
--- NOTE | 2018-04-07 16:43 | UC ---
Respiratory Complaint HPI - HPI Summary HPI Summary: 82 yo who presents to c/o shortness of breath since yesterday, was here 2 weeks ago due to the same issue. The chest xray on that occasion was normal. He started to take ventolin but he thought it was only twice a day and has been using it for 2 days. 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 Denies chills, fever, nausea or vomiting. - History of Current Complaint Chief Complaint: UCRespiratory Stated Complaint: DIFFICULTY BREATHING Time Seen by Provider: 04/07/18 15:59 Hx Obtained From: Patient Onset/Duration: Sudden Onset, Lasting Days Severity Initially: Mild Severity Currently: Moderate Pain Intensity: 0 Character: Cough: Nonproductive Aggravating Factors: Allergens, Deep Breaths Alleviating Factors: Bronchodilator Associated Signs And Symptoms: Positive: Dyspnea Related History: Seasonal Allergies - Risk Factors Pulmonary Embolism Risk Factors: Negative Cardiac Risk Factors: Hypertension, Elevated Lipids Tuberculosis Risk Factors: Negative - Allergies/Home Medications Allergies/Adverse Reactions: Allergies Allergy/AdvReac Type Severity Reaction Status Date / Time Cow hair Allergy Intermediate Itching Uncoded 04/07/18 16:05 dust Allergy Unknown Uncoded 04/07/18 16:05 Reaction Details PMH/Surg Hx/FS Hx/Imm Hx Previously Healthy: Yes Endocrine History: Dyslipidemia Cardiovascular History: Hypertension Respiratory History: COPD, Asthma - Surgical History Surgical History: Yes Surgery Procedure, Year, and Place: CARDIAC STENT =2007. right rotator cuff. Right leg - Family History Known Family History: Positive: Hypertension - Social History Alcohol Use: Daily Alcohol Amount: 4-5 daily Substance Use Type: None Smoking Status (MU): Never Smoked Tobacco Have You Smoked in the Last Year: No Household Exposure Type: Cigars - Immunization History Most Recent Influenza Vaccination: fall 2015 Most Recent Pneumonia Vaccination: never Review of Systems Constitutional: Negative Respiratory: Shortness Of Breath, Cough All Other Systems Reviewed And Are Negative: Yes Physical Exam Triage Information Reviewed: Yes Appearance: Well-Appearing, No Pain Distress, Well-Nourished Vital Signs: Initial Vital Signs Temp 99.8 F 04/07/18 16:00 Pulse 78 04/07/18 16:00 Resp 28 04/07/18 16:00 BP 103/58 04/07/18 16:00 Pulse Ox 95 04/07/18 16:00 Vital Signs Reviewed: Yes Eyes: Positive: Conjunctiva Clear ENT: Positive: Hearing grossly normal, Pharyngeal erythema, TMs normal, Uvula midline Neck: Positive: Supple, Nontender, No Lymphadenopathy Respiratory: Positive: Chest non-tender, No accessory muscle use, Respiratory distress, Wheezing, Expiration Cardiovascular: Positive: RRR, No Murmur, Pulses Normal, Brisk Capillary Refill Abdomen Description: Positive: Nontender, No Organomegaly, Soft, Bruit Bowel Sounds: Positive: Present Musculoskeletal: Positive: Strength Intact, ROM Intact, No Edema UC Diagnostic Evaluation - Laboratory O2 Sat by Pulse Oximetry: 95 Respiratory Course/Dx - Course Course Of Treatment: Patient has experienced resolution of his symptoms after nebulizer treatment and prednisone. Advised to use albuterol every 4 hr when needed and start flovent with a spacer to increase compliance. Follow up with PCP to assess for need of a nebulizer at home - Differential Dx/Diagnosis Provider Diagnoses: Bronchial asthma exacerbation Discharge - Sign-Out/Discharge Documenting (check all that apply): Patient Departure - Discharge Plan Condition: Good Disposition: HOME Prescriptions: Fluticasone HFA 220 mcg(NF) [Flovent HFA 220 Mcg(NF)] 1 puff INH BID 30 Days #1 mdi Spacer/Holding Chamber (NF) [Easivent CHAMBER (NF)] 1 applic INH QID 30 Days #1 device Patient Education Materials: Asthma (ED), How to Use a Metered-Dose Inhaler and a Spacer (ED), Fluticasone (By breathing), Albuterol (By breathing) Referrals: Corey Garay MD [Primary Care Provider] - - Billing Disposition and Condition Condition: GOOD Disposition: Home
--- NOTE | 2018-04-07 17:15 | RAD ---
HISTORY: SOB for one day, history of COPD COMPARISONS: March 25, 2018 VIEWS: 4: Frontal dual-energy and lateral views of the chest. FINDINGS: CARDIOMEDIASTINAL SILHOUETTE: The cardiomediastinal silhouette is normal. FIDEL: The fidel are normal. PLEURA: The costophrenic angles are sharp. No pleural abnormalities are noted. LUNG PARENCHYMA: The lungs are clear. ABDOMEN: The upper abdomen is clear. There is no subphrenic gas. BONES AND SOFT TISSUES: No bone or soft tissue abnormalities are noted. OTHER: None. IMPRESSION: NO ACTIVE CARDIOPULMONARY DISEASE.
[2018-04-07 18:13] VITALS: BP 113/64
== END 2018-04-07 18:00 | disposition home or self-care (01) ==
LOC: UCEAST 15:53
DX: J44.1 Chronic obstructive pulmonary disease with (acute) exacerbation (principal); I10 Essential (primary) hypertension; E11.9 Type 2 diabetes mellitus without complications
CPT/HCPCS: 71046; 99202; A9270-GY; G0463; J7512

== ENCOUNTER 2018-04-14 16:24 | Inpatient (IN) | payer MEDICARE ==
[2018-04-14] MEDS ORDERED: Dexamethasone IV* 4 MG/ML 5 ML VIAL (20 MG) IVPB ONE (16:55)
[2018-04-14] MEDS ORDERED: Albuterol/Ipratropium NEB.SOL* Albuterol 2.5 MG/Ipratropium 0.5 MG 3 ML INH ONE (16:55)
[2018-04-14] MEDS ORDERED: Azithromycin IV(*) 500 MG in NS 0.9% 250 ML* 250 ML IVPB ONE (16:57)
--- NOTE | 2018-04-14 17:09 | RAD ---
Indication: Shortness of breath. COPD. Coronary artery disease. Comparison: April 07, 2018 chest radiograph and March 25, 2018 CT. Technique: Upright AP 1647 hours Report: No focal pulmonary lesion, compelling alveolar consolidation, pleural effusion, pneumothorax. Upper normal heart size. Unremarkable central pulmonary vasculature and mediastinal contours. IMPRESSION: #. No evidence for acute intrathoracic disease.
--- NOTE | 2018-04-14 17:37 | ED ---
Shortness of Breath - HPI Summary HPI Summary: This patient is an 82 year old M presenting to [facility] with a chief complaint of SOB for the past two weeks that has worsened today. Patient reports dyspnea upon exertion. Symptoms improved with rest. Denies chest pain. Patient reports a recent appointment with Dr. Gomez[facility] - History of Current Complaint Chief Complaint: EDShortnessOfBreath Time Seen by Provider: 04/14/18 16:36 Hx Obtained From: Patient Onset/Duration: Gradual Onset, Lasting Weeks Timing: Constant Dyspnea At: Exertion Aggrevating Factors: Movement Alleviating Factors: Other - rest Associated Signs & Symptoms: Wheezing Related History: Similar Episode - Allergy/Home Medications Allergies/Adverse Reactions: Allergies Allergy/AdvReac Type Severity Reaction Status Date / Time Cow hair Allergy Intermediate Itching Uncoded 04/07/18 16:05 dust Allergy Unknown Uncoded 04/07/18 16:05 Reaction Details PMH/Surg Hx/FS Hx/Imm Hx Endocrine/Hematology History: Reports: Hx Anemia - ON IRON 3X WEEKLY Denies: Hx Diabetes, Hx Thyroid Disease Cardiovascular History: Reports: Hx Angina, Hx Coronary Artery Disease, Hx Hypercholesterolemia, Hx Hypertension, Hx Syncope Denies: Hx Myocardial Infarction, Hx Pacemaker/ICD, Hx Valvular Heart Disease , Other Cardiovascular Problems/Disorders Respiratory History: Reports: Hx Asthma, Hx Chronic Obstructive Pulmonary Disease (COPD), Hx Pneumonia, Other Respiratory Problems/Disorders - HX OF COPD GI History: Reports: Hx Gastroesophageal Reflux Disease Denies: Hx Ulcer Musculoskeletal History: Reports: Hx Arthritis - HANDS,HIPS, Hx Rheumatoid Arthritis Sensory History: Reports: Hx Contacts or Glasses - NOT WITH THE PT, Hx Deafness Denies: Hx Cataracts - REMOVED, Hx Hearing Aid Opthamlomology History: Reports: Hx Contacts or Glasses - NOT WITH THE PT Denies: Hx Cataracts - REMOVED Psychiatric History: Reports: Hx Substance Abuse - quit drinking a 6 pack a day last month. - Surgical History Surgery Procedure, Year, and Place: CARDIAC STENT =2007. right rotator cuff. Right leg Hx Anesthesia Reactions: No - Immunization History Date of Tetanus Vaccine: unk Date of Influenza Vaccine: unk Infectious Disease History: No Infectious Disease History: Reports: Hx Shingles Denies: Hx Clostridium Difficile, Hx Hepatitis, Hx Human Immunodeficiency Virus (HIV), Hx of Known/Suspected MRSA, Hx Tuberculosis, Hx Known/Suspected VRE , Hx Known/Suspected VRSA, History Other Infectious Disease, Traveled Outside the [place] in Last 30 Days - Family History Known Family History: Positive: Hypertension - Social History Alcohol Use: Daily Alcohol Amount: 4-5 daily Hx Substance Use: No Substance Use Type: Reports: None Hx Tobacco Use: No Smoking Status (MU): Never Smoked Tobacco Have You Smoked in the Last Year: No Review of Systems Negative: Fever Negative: Chest Pain Positive: Shortness Of Breath All Other Systems Reviewed And Are Negative: Yes Physical Exam - Summary Physical Exam Summary: GENERAL: Patient is a well developed and nourished male who is lying comfortable in the stretcher. Patient is not in any acute respiratory distress. HEAD AND FACE: Normocephalic EYES: PERRLA, EOMI x 2. EARS: Hearing grossly intact. MOUTH: Oropharynx within normal limits. NECK: Supple, trachea is midline, no adenopathy, no JVD, no carotid bruit. CHEST: Symmetric, no tenderness at palpation LUNGS: Wheezing throughout with pursed lips CVS: Regular rate and rhythm, S1 and S2 present, no murmurs or gallops appreciated. ABDOMEN: Soft, non-tender. Bowel sounds are normal. No abdominal abnormal pulsations. EXTREMITIES: Full ROM in all major joints, no edema, no cyanosis or clubbing. NEURO: Alert and oriented x 3. No acute neurological deficits. Speech is normal and follows commands. SKIN: Dry and warm Triage Information Reviewed: Yes Vital Signs On Initial Exam: Initial Vitals Temp Pulse Resp BP Pulse Ox 98.7 F 91 26 123/71 93 04/14/18 16:27 04/14/18 16:27 04/14/18 16:27 04/14/18 16:27 04/14/18 16:27 Vital Signs Reviewed: Yes Diagnostics - Vital Signs Vital Signs Temp Pulse Resp BP Pulse Ox 04/14/18 17:17 85 29 98 04/14/18 17:06 79 37 97 04/14/18 16:27 98.7 F 91 26 123/71 93 - Laboratory Lab Results: Lab Results 04/14/18 Range/Units 17:07 ABG pH 7.37 (7.35-7.45) ABG pCO2 41 (35-45) mmHg ABG pO2 82 (80-100) mmHg ABG HCO3 23.7 (19-31) mmol/L ABG O2 Saturation 96.0 (95-98) % ABG Base Excess -1.5 (-2.0-2.0) Result Diagrams: 04/16/18 05:17 04/16/18 05:17 Lab Statement: Any lab studies that have been ordered have been reviewed, and results considered in the medical decision making process. - Radiology CXR Radiology Interpretation Completed By: Radiologist - No evidence for acute intrathoracic disease. ED Physician has reviewed this report - EKG 1643 Cardiac Rate: NL - 83 BPM EKG Rhythm: Sinus Rhythm EKG Interpretation: RBBB, left anterio vesicular block Course/Dx - Course Course Of Treatment: 82 year old M presenting to [facility] with a chief complaint of SOB for the past two weeks that has worsened today. Patient reports dyspnea upon exertion. CXR and EKG are unremarkable. Patient is given decadron and duoneb. Bloodwork and ABG are unremarkable. Patient's nurse walked with him resulting in worsened SOB after a few breaths. A Chest CTA is ordered. Patient is signed out to Dr. Gonzalez awaiting Chest CTA results. - Diagnoses Provider Diagnoses: COPD exacerbation Discharge - Sign-Out/Discharge Documenting (check all that apply): Sign-Out Patient Signing out patient TO: Kane Gonzalez - chest CTA - Discharge Plan Condition: Good Disposition: ADMITTED TO [facility] - Billing Disposition and Condition Condition: GOOD Disposition: Admitted to [facility] - Attestation Statements Document Initiated by Scribe: Yes Documenting Scribe: Amy Whittaker Provider For Whom Scribe is Documenting (Include Credential): Abel Su MD Scribe Attestation: Amy Goode, scribed for Abel Su MD on 04/16/18 at 0754. Scribe Documentation Reviewed: Yes Provider Attestation: The documentation as recorded by the scribeAmy accurately reflects the service I personally performed and the decisions made by me, Abel Su MD
[2018-04-14] MEDS ORDERED: Dexamethasone IV* 10 MG in NS 0.9% 50 ML* 50 ML IVPB ONE (18:00)
[2018-04-14 18:05] LABS: ABS Basophils 0.1 10^3/ul (0-0.2); ABS Eosinophils 0.5 10^3/ul (0-0.6); ABS Lymphocytes 2.7 10^3/ul (1.0-4.8); ABS Monocytes 0.7 10^3/ul (0-0.8); ABS Neutrophils 3.3 10^3/ul (1.5-7.7); ABS Nucleated RBC 0 10^3/ul; Eosinophil % 6.7 % (0-6); Hematocrit 39 % (42-52); Hemoglobin 13.2 g/dl (14.0-18.0); Lymphocyte % 37.4 % (25-47); Mean Corpuscular HGB Conc 34 g/dl (31-36); Mean Corpuscular Hemoglobin 31 pg (27-31); Mean Corpuscular Volume 91 fL (80-94); Mean Platelet Volume 7.9 um3 (7.4-10.4); Nucleated Red Blood Cells % 0.1; Platelet Count 214 10^3/ul (150-450); Red Blood Count 4.32 10^6/ul (4.00-5.40); Red Cell Distribution Width 14 % (10.5-15); White Blood Count 7.4 10^3/ul (3.5-10.8)
[2018-04-14 18:19] LABS: INR 0.82 (0.77-1.02)
[2018-04-14 18:20] LABS: EGFR Non-African American 113.8 (>60)
[2018-04-14] MEDS ORDERED: Iohexol 350* (CONTRAST) 500 ML MDV IV ONE (19:16)
--- NOTE | 2018-04-14 20:09 | RAD ---
EXAM: CT Angiography Chest With Intravenous Contrast CLINICAL HISTORY: 82 years old, male; Signs and symptoms; Dyspnea; Patient HX: HX of cardiac stents; Additional info: SOB eval or pe TECHNIQUE: Axial computed tomographic angiography images of the chest with intravenous contrast using pulmonary embolism protocol. All CT scans at this facility use at least one of these dose optimization techniques: automated exposure control; mA and/or kV adjustment per patient size (includes targeted exams where dose is matched to clinical indication); or iterative reconstruction. 3D and MIP reconstructed images were created and reviewed. Coronal and sagittal reformatted images were created and reviewed. CONTRAST: 64 mL of OMNIPAQUE 350 administered intravenously. COMPARISON: CTA CHEST CTA CHEST 03/25/2018 6:33 AM, CTA CHEST CTA CHEST 06/20/2017 10:24:00 PM FINDINGS: Pulmonary arteries: Pulmonary arteries are well opacified to the subsegmental branches. Normal caliber main pulmonary artery. No filling defects throughout the pulmonary artery tree. Aorta: The aorta demonstrates moderate atherosclerotic calcification. Lungs: Groundglass nodule anterior segment right upper lobe measures 0.6 cm (series 3, image 23) previously 0.5 cm. Ground glass nodule anterior segment right upper lobe or superiorly measures 0.4 cm (series 3, image 20) previously 0.3 cm. Subpleural ground glass nodule posterior segment right upper lobe measures 0.3 cm (series 3, image 19) previously 0.2 cm. Solid pulmonary nodule superior segment left lower lobe measures 0.4 cm (series 3, image 29) previously 0.3 cm. No additional nodules. No consolidation or masses. No bronchiectasis, peribronchial thickening, or luminal defects. Pleural space: Stable focal thickening along the right oblique and left fissures unchanged from prior studies. No significant effusion. No pneumothorax. Heart: There is mild atherosclerotic calcification of the coronary arteries. No significant pericardial effusion. No evidence of RV dysfunction. Thyroid: No thyroid nodules. Bones/joints: No fractures. No suspicious bone lesions. No dislocation. Soft tissues: Normal. Lymph nodes: Normal. No enlarged lymph nodes. IMPRESSION: 1. No pulmonary emboli. No additional findings to correlate with patient's symptomatology. 2. Multiple small stable pulmonary nodules showing nearly one year stability therefore followup is not recommended.
--- NOTE | 2018-04-14 21:07 | ED ---
Progress - Progress Note Progress Note: Patient was signed out from Dr. Su to Dr. Gonzalez upon provider shift change pending CT angiography chest. - Results/Orders Results/Orders: CT Angiography Chest with IV Contrast: Interpreted by radiologist. Impression: No pulmonary emboli. No additional finding to correlate with patient 's symptomology. Multiple small stable pulmonary nodules showing nearly one year stability therefore followup is not recommended. Dr. Gonzalez has reviewed this report. Course/Dx - Course Course Of Treatment: 82 year old M presenting to [facility] with a chief complaint of SOB for the past two weeks that has worsened today. Patient reports dyspnea upon exertion. CXR and EKG are unremarkable. Patient is given decadron and duoneb. Bloodwork and ABG are unremarkable. Patient's nurse walked with him resulting in worsened SOB after a few breaths. A Chest CTA is ordered. Patient is signed out to Dr. Gonzalez awaiting Chest CTA results. - Diagnoses Provider Diagnoses: COPD exacerbation - Provider Notifications Discussed Care Of Patient With: John Hassan MD Time Discussed With Above Provider: 21:00 Instructed by Provider To: Admit As Inpatient Discharge - Sign-Out/Discharge Documenting (check all that apply): Patient Departure, Receiving Sign-Out Signing out patient TO: Kane Gonzalez Receiving patient FROM: Abel Su - Discharge Plan Condition: Good Disposition: ADMITTED TO [facility] Prescriptions: predniSONE [Prednisone 20 MG TAB] 60 mg PO DAILY #15 tablet Patient Education Materials: COPD (Chronic Obstructive Pulmonary Disease) (ED) Referrals: Corey Garay MD [Primary Care Provider] - - Attestation Statements Document Initiated by Scribe: Yes Documenting Scribe: Gala Mcgrath Provider For Whom Scribe is Documenting (Include Credential): Kane Gonzalez MD Scribe Attestation: Gala Goode, scribed for Kane Gonzalez MD on 04/14/18 at 2241.
[2018-04-14] MEDS ORDERED: Albuterol 0.5% CONC NEB.SOL* 5 MG/ML 20 ml BOT INH ONE (21:10)
--- NOTE | 2018-04-14 22:16 | HP ---
H&P (Free Text) History and Physical: PCP: Belle Garay MD Date/Time: 04/14/2018 2200 CC: SOB, wheeze HPI: Mr Solomon is an 82YO male HX CAD/stent, COPD, HTN, HLD, GERD admitted - 03/26/2018 for COPD exacerbation presents reporting no improvement since that time. He continues to complain of SOB & exertional dyspnea with prominent wheeze. He produces scant quantities of thick white phlegm and reports sweats, but no F/C, chest pain, palpitations, N/V/D, or other issues. CTA chest is negative for PE & pneumonia. PMedHx CAD/stent COPD HTN HLD GERD Ambulatory Orders Amlodipine Besylate [Norvasc 5 mg tab] 5 mg PO DAILY 01/21/17 Aspirin [Aspirin 81 MG TAB] 81 mg PO DAILY 01/21/17 Atorvastatin* [Lipitor 80 MG*] 80 mg PO QPM 01/21/17 Metoprolol Succinate [Toprol Xl] 25 mg PO DAILY 01/21/17 Montelukast Sodium TAB* [Singulair 10 MG TAB*] 10 mg PO BEDTIME 01/21/17 Omeprazole CAP* [Prilosec CAP* 20 MG] 20 mg PO DAILY 01/21/17 Tamsulosin HCl [Flomax] 0.4 mg PO DAILY 01/21/17 predniSONE TAB* [Deltasone 20 MG TAB*] 20 mg PO DAILY #10 tab 03/26/18 Fluticasone HFA 220 mcg(NF) [Flovent HFA 220 Mcg(NF)] 1 puff INH BID 30 Days #1 mdi 04/07/18 Spacer/Holding Chamber (NF) [Easivent CHAMBER (NF)] 1 applic INH QID 30 Days #1 device 04/07/18 Allergies Cow hair Allergy (Intermediate, Uncoded 04/07/18 16:05) Itching Skin fell off hands, raw. 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, needs follow up FamHx: reviewed & non-contributory to presentation ROS: as above, otherwise reviewed and all were negative vitals: Vital Signs Temp 37.3 C 08/25/18 23:40 Pulse 116 04/14/18 23:40 Resp 20 04/14/18 23:40 BP 142/84 04/14/18 23:40 Pulse Ox 97 04/15/18 00:10 Intake & Output 04/14/18 04/14/18 04/15/18 11:59 23:59 11:59 Intake Total 250 Balance 250 Intake: IVPB 250 Constitutional: NAD, normally developed, well-nourished elderly white male HEENM: atraumatic; sclera/conjunctiva: anicteric/mildly injectd OU; hearing: clinically moderately decreased; oropharynx: clear, mucosa tacky Neck: soft tissue: non-tender; thyroid: normal Pulmonary: mild/mod mid- to end-expiratory wheeze B, fair to poor aeration, no accessory muscle use CV: TR/RR, normal S1S2, no carotid bruit, no jugular venous distention, 2+ B DP/ PT, trace BLE edema Abdominal: soft, non-distended, non-tender, no rebound/guarding/rigidity, normoactive bowel sounds, no hepatosplenomegaly or masses, no costovertebral angle tenderness Musculoskeletal: general: grossly intact, non-tender, negative Conor's B Integumental: normal appearance and texture of exposed skin Psychiatric orientation: AA&O to PPS affect: mildly anxious mood: cooperative eye contact: fair content: seemingly reliable responses: timely insight: fair to good Testing: Lab Results 04/14/18 04/14/18 04/14/18 Range/Units 17:07 17:57 17:57 WBC 7.4 (3.5-10.8) 10^3/ul RBC 4.32 (4.00-5.40) 10^6/ul Hgb 13.2 L (14.0-18.0) g/dl Hct 39 L (42-52) % MCV 91 (80-94) fL MCH 31 (27-31) pg MCHC 34 (31-36) g/dl RDW 14 (10.5-15) % Plt Count 214 (150-450) 10^3/ul MPV 7.9 (7.4-10.4) um3 Neut % (Auto) 45.3 (38-83) % Lymph % (Auto) 37.4 (25-47) % [place] % (Auto) 9.7 H (0-7) % Eos % (Auto) 6.7 H (0-6) % Baso % (Auto) 0.9 (0-2) % Absolute Neuts (auto) 3.3 (1.5-7.7) 10^3/ul Absolute Lymphs (auto) 2.7 (1.0-4.8) 10^3/ul Absolute Monos (auto) 0.7 (0-0.8) 10^3/ul Absolute Eos (auto) 0.5 (0-0.6) 10^3/ul Absolute Basos (auto) 0.1 (0-0.2) 10^3/ul Absolute Nucleated RBC 0 10^3/ul Nucleated RBC % 0.1 INR (Anticoag Therapy) 0.82 (0.77-1.02) APTT 26.9 (26.0-36.3) seconds ABG pH 7.37 (7.35-7.45) ABG pCO2 41 (35-45) mmHg ABG pO2 82 (80-100) mmHg ABG HCO3 23.7 (19-31) mmol/L ABG O2 Saturation 96.0 (95-98) % ABG Base Excess -1.5 (-2.0-2.0) VBG pH (7.33-7.43) VBG pCO2 (41-51) mmHg VBG pO2 (35-45) mmHg VBG HCO3 (24-28) mmol/L VBG O2 Saturation (70-80) % VBG Base Excess (0-4) Sodium (135-145) mmol/L Potassium (3.5-5.0) mmol/L Chloride (101-111) mmol/L Carbon Dioxide (22-32) mmol/L Anion Gap (2-11) mmol/L BUN (6-24) mg/dL Creatinine (0.67-1.17) mg/dL Est GFR ( Amer) (>60) Est GFR (Non-Af Amer) (>60) BUN/Creatinine Ratio (8-20) Glucose (70-100) mg/dL Lactic Acid (0.5-2.0) mmol/L Calcium (8.6-10.3) mg/dL Total Bilirubin (0.2-1.0) mg/dL AST (13-39) U/L ALT (7-52) U/L Alkaline Phosphatase (34-104) U/L Troponin I (<0.04) ng/mL B-Natriuretic Peptide ( - 100) pg/mL Total Protein (6.4-8.9) g/dL Albumin (3.2-5.2) g/dL Globulin (2-4) g/dL Albumin/Globulin Ratio (1-3) 04/14/18 04/14/18 04/14/18 Range/Units 17:57 17:57 17:57 WBC (3.5-10.8) 10^3/ul RBC (4.00-5.40) 10^6/ul Hgb (14.0-18.0) g/dl Hct (42-52) % MCV (80-94) fL MCH (27-31) pg MCHC (31-36) g/dl RDW (10.5-15) % Plt Count (150-450) 10^3/ul MPV (7.4-10.4) um3 Neut % (Auto) (38-83) % Lymph % (Auto) (25-47) % [place] % (Auto) (0-7) % Eos % (Auto) (0-6) % Baso % (Auto) (0-2) % Absolute Neuts (auto) (1.5-7.7) 10^3/ul Absolute Lymphs (auto) (1.0-4.8) 10^3/ul Absolute Monos (auto) (0-0.8) 10^3/ul Absolute Eos (auto) (0-0.6) 10^3/ul Absolute Basos (auto) (0-0.2) 10^3/ul Absolute Nucleated RBC 10^3/ul Nucleated RBC % INR (Anticoag Therapy) (0.77-1.02) APTT (26.0-36.3) seconds ABG pH (7.35-7.45) ABG pCO2 (35-45) mmHg ABG pO2 (80-100) mmHg ABG HCO3 (19-31) mmol/L ABG O2 Saturation (95-98) % ABG Base Excess (-2.0-2.0) VBG pH (7.33-7.43) VBG pCO2 (41-51) mmHg VBG pO2 (35-45) mmHg VBG HCO3 (24-28) mmol/L VBG O2 Saturation (70-80) % VBG Base Excess (0-4) Sodium 140 (135-145) mmol/L Potassium 4.0 (3.5-5.0) mmol/L Chloride 108 (101-111) mmol/L Carbon Dioxide 22 (22-32) mmol/L Anion Gap 10 (2-11) mmol/L BUN 11 (6-24) mg/dL Creatinine 0.67 (0.67-1.17) mg/dL Est GFR ( Amer) 137.8 (>60) Est GFR (Non-Af Amer) 113.8 (>60) BUN/Creatinine Ratio 16.4 (8-20) Glucose 92 (70-100) mg/dL Lactic Acid 1.5 (0.5-2.0) mmol/L Calcium 8.5 L (8.6-10.3) mg/dL Total Bilirubin 0.50 (0.2-1.0) mg/dL AST 52 H (13-39) U/L ALT 49 (7-52) U/L Alkaline Phosphatase 82 (34-104) U/L Troponin I 0.00 (<0.04) ng/mL B-Natriuretic Peptide 42 ( - 100) pg/mL Total Protein 6.7 (6.4-8.9) g/dL Albumin 4.0 (3.2-5.2) g/dL Globulin 2.7 (2-4) g/dL Albumin/Globulin Ratio 1.5 (1-3) 04/14/18 04/15/18 Range/Units 20:45 00:04 WBC (3.5-10.8) 10^3/ul RBC (4.00-5.40) 10^6/ul Hgb (14.0-18.0) g/dl Hct (42-52) % MCV (80-94) fL MCH (27-31) pg MCHC (31-36) g/dl RDW (10.5-15) % Plt Count (150-450) 10^3/ul MPV (7.4-10.4) um3 Neut % (Auto) (38-83) % Lymph % (Auto) (25-47) % [place] % (Auto) (0-7) % Eos % (Auto) (0-6) % Baso % (Auto) (0-2) % Absolute Neuts (auto) (1.5-7.7) 10^3/ul Absolute Lymphs (auto) (1.0-4.8) 10^3/ul Absolute Monos (auto) (0-0.8) 10^3/ul Absolute Eos (auto) (0-0.6) 10^3/ul Absolute Basos (auto) (0-0.2) 10^3/ul Absolute Nucleated RBC 10^3/ul Nucleated RBC % INR (Anticoag Therapy) (0.77-1.02) APTT (26.0-36.3) seconds ABG pH (7.35-7.45) ABG pCO2 (35-45) mmHg ABG pO2 (80-100) mmHg ABG HCO3 (19-31) mmol/L ABG O2 Saturation (95-98) % ABG Base Excess (-2.0-2.0) VBG pH 7.41 (7.33-7.43) VBG pCO2 34 L (41-51) mmHg VBG pO2 87 H (35-45) mmHg VBG HCO3 23.1 L (24-28) mmol/L VBG O2 Saturation 96.0 H (70-80) % VBG Base Excess -2.3 L (0-4) Sodium (135-145) mmol/L Potassium (3.5-5.0) mmol/L Chloride (101-111) mmol/L Carbon Dioxide (22-32) mmol/L Anion Gap (2-11) mmol/L BUN (6-24) mg/dL Creatinine (0.67-1.17) mg/dL Est GFR ( Amer) (>60) Est GFR (Non-Af Amer) (>60) BUN/Creatinine Ratio (8-20) Glucose (70-100) mg/dL Lactic Acid (0.5-2.0) mmol/L Calcium (8.6-10.3) mg/dL Total Bilirubin (0.2-1.0) mg/dL AST (13-39) U/L ALT (7-52) U/L Alkaline Phosphatase (34-104) U/L Troponin I 0.01 (<0.04) ng/mL B-Natriuretic Peptide ( - 100) pg/mL Total Protein (6.4-8.9) g/dL Albumin (3.2-5.2) g/dL Globulin (2-4) g/dL Albumin/Globulin Ratio (1-3) ECG, personally reviewed: sinus RBBB rate 83, no ischemia CXR, personally reviewed: IMPRESSION: #. No evidence for acute intrathoracic disease. CTA chest, personally reviewed: IMPRESSION: 1. No pulmonary emboli. No additional findings to correlate with patient's symptomatology. 2. Multiple small stable pulmonary nodules showing nearly one year stability therefore followup is not recommended. Impression: 82M HX CAD/stent, COPD, HTN, HLD, GERD presenting with COPD exacerbation DIAGNOSIS & PLAN Primary COPD exacerbation : albuterol : mometasone/formoterol : tiotropium : IV dexamethasone given in ED : continue montelukast : supplemental oxygen : incentive spirometry : supportive care alcohol withdrawal : after arriving to the floor became tachycardia & tremulous : [facility] protocol Secondary CAD/stent : continue aspirin HTN : continue metorpolol & amlodipine HLD : continue atorvastatin GERD : continue omeprazole BPH : continue tamsulosin Admission Rational: inpatient for COPD exacerbation 2nd time this month & alcohol withdrawal, not anticipated to be adequately controlled w/i 48h to allow for discharge DVTp: SCDs & heparin SQ Code Status: full HCP: sonReji
[2018-04-14] MEDS ORDERED: Albuterol 2.5 MG/3 ML NEB.SOL* (0.083%) INH PRN (22:35)
[2018-04-14] MEDS ORDERED: Melatonin 3 MG TAB PO PRN (22:35)
[2018-04-14] MEDS ORDERED: Acetaminophen TAB* 325 MG PO PRN (22:35)
[2018-04-14] MEDS ORDERED: Ondansetron ODT TAB* 4 MG PO PRN (22:35)
[2018-04-14] MEDS ORDERED: NS 0.9% 1000 ML* 1,000 ML IV SCH (22:45)
[2018-04-14] MEDS ORDERED: Spiriva Inhaler DEVICE* 1 EACH DEVICE SCH (23:00)
[2018-04-15] MEDS ORDERED: Calcium Carbonate CHEW TAB* 500 MG (TUMS) PO ONE (00:17)
[2018-04-15] MEDS ORDERED: Thiamine IV* 100 MG/ML 2 ML VIAL IM ONE (01:00)
[2018-04-15] MEDS: Albuterol 2.5 MG/3 ML NEB.SOL* (0.083%) INH SCH ×4 (01:14→19:26)
[2018-04-15] MEDS: LORazepam INJ* 2 MG/ML 1 ML VIAL IV PUSH SCH ×4 (02:15→21:44)
[2018-04-15] MEDS: Heparin VIAL(*) 5000 UNITS/ML VIAL (FIVE THOUSAND) SUBCUT SCH ×3 (05:34→21:48)
[2018-04-15] MEDS ORDERED: Omeprazole CAP* 20 MG PO SCH (06:00)
[2018-04-15] MEDS: Mometasone/Formoter 200/5 MDI INH SCH ×2 (08:24→19:29)
[2018-04-15] MEDS: Tiotropium CAP.INH* CAP.INH/18 MCG (USE ORDER SET !) INH SCH (08:33)
[2018-04-15] MEDS: Omeprazole CAP* 20 MG PO SCH (09:09)
[2018-04-15] MEDS: Docusate CAP* 100 MG PO SCH ×2 (09:09→20:29)
[2018-04-15] MEDS: Aspirin EC TAB* 81 MG TAB.EC PO SCH (09:09)
[2018-04-15] MEDS: Thiamine TAB* 100 MG TAB PO SCH (09:10)
[2018-04-15] MEDS: amLODIPine TAB* 5 MG PO SCH (09:10)
[2018-04-15] MEDS: Multivitamins/Minerals TAB PO SCH (09:10)
[2018-04-15] MEDS: Tamsulosin CAP* 0.4 MG PO SCH (09:10)
[2018-04-15] MEDS: Metoprolol Succinate XL TAB* 25 MG PO SCH (09:11)
[2018-04-15] MEDS: Folic Acid TAB* 1 MG PO SCH (09:11)
--- NOTE | 2018-04-15 09:36 | PN ---
Subjective Date of Service: 04/15/18 Interval History: Patient states breathing is better. Denies smoking history. 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 Denies cough. Was drinking 6-9 beers/day. On the [facility] protocol. Family History: Unchanged from Admission Social History: Unchanged from Admission Past Medical History: Unchanged from Admission Objective Active Medications: Acetaminophen (Tylenol Tab*) 650 mg PO Q6H PRN PRN Reason: FEVER/PAIN Albuterol (Ventolin 2.5 Mg/3 Ml Neb.Marlena*) 2.5 mg INH Q2H PRN PRN Reason: SOB/WHEEZING Albuterol (Ventolin 2.5 Mg/3 Ml Neb.Marlena*) 2.5 mg INH [id number] [facility] Last Admin: 04/15/18 08:22 Dose: 2.5 mg Amlodipine Besylate (Norvasc Tab*) 5 mg PO DAILY [facility] Last Admin: 04/15/18 09:10 Dose: 5 mg Aspirin (Aspirin Ec Tab*) 81 mg PO DAILY [facility] Last Admin: 04/15/18 09:09 Dose: 81 mg Atorvastatin Calcium (Lipitor*) 80 mg PO QPM [facility] Device (Tiotropium Inhaler Device*) 1 each .SEE ORDER .USE w/ SPIRIVA CAPS [facility] Docusate Sodium (Colace Cap*) 200 mg PO BID [facility] Last Admin: 04/15/18 09:09 Dose: 200 mg Folic Acid (Folvite Tab*) 1 mg PO DAILY [facility] Last Admin: 04/15/18 09:11 Dose: 1 mg Heparin Sodium (Porcine) (Heparin Vial(*)) 5,000 units SUBCUT Q8HR [facility] Last Admin: 04/15/18 05:34 Dose: 5,000 units Sodium Chloride (Ns 0.9% 1000 Ml*) 1,000 mls @ 30 mls/hr IV PER RATE [facility] Last Admin: 04/15/18 09:09 Dose: 30 mls/hr Lorazepam (Ativan Inj*) 0 - 6 mg IV PUSH .PER [facility] PROTOCOL KATHRYN; Protocol Last Admin: 04/15/18 09:11 Dose: 2 mg Melatonin (Melatonin) 3 mg PO BEDTIME PRN; Protocol PRN Reason: Sleep Last Admin: 04/15/18 02:15 Dose: 3 mg Metoprolol Succinate (Toprol Xl Tab*) 25 mg PO DAILY [facility] Last Admin: 04/15/18 09:11 Dose: 25 mg Mometasone Furoate/Formoterol Fumar (Dulera 200/5 Mdi*) 2 puff INH BID [facility] Last Admin: 04/15/18 08:24 Dose: 2 puff Montelukast Sodium (Singulair Tab*) 10 mg PO BEDTIME [facility] Multivitamins/Minerals (Theragran/Minerals Tab*) 1 tab PO DAILY [facility] Last Admin: 04/15/18 09:10 Dose: 1 tab Omeprazole (Prilosec Cap*) 20 mg PO DAILY [facility] Last Admin: 04/15/18 09:09 Dose: 20 mg Ondansetron HCl (Zofran Odt Tab*) 4 mg PO Q6H PRN PRN Reason: n/v Prednisone (Deltasone Tab*) 60 mg PO DAILY [facility] Tamsulosin HCl (Flomax Cap*) 0.4 mg PO DAILY [facility] Last Admin: 04/15/18 09:10 Dose: 0.4 mg Thiamine HCl (Vitamin B-1 Tab*) 100 mg PO DAILY [facility] Last Admin: 04/15/18 09:10 Dose: 100 mg Tiotropium [place] (Spiriva Cap.Inh*) 1 cap INH DAILY [facility] Last Admin: 04/15/18 08:33 Dose: Not Given Vital Signs - 8 hr 04/15/18 04/15/18 04/15/18 01:54 02:00 02:15 Temperature Pulse Rate 111 Respiratory 16 16 16 Rate Blood Pressure 168/89 (mmHg) O2 Sat by Pulse 97 Oximetry 04/15/18 04/15/18 04/15/18 03:58 04:18 05:59 Temperature 36.6 C Pulse Rate 91 83 Respiratory 20 20 24 Rate Blood Pressure 152/79 155/79 (mmHg) O2 Sat by Pulse 98 99 Oximetry 04/15/18 04/15/18 04/15/18 06:00 06:28 08:12 Temperature 37.2 C 36.5 C Pulse Rate 80 101 Respiratory 24 22 21 Rate Blood Pressure 141/66 155/120 (mmHg) O2 Sat by Pulse 95 98 Oximetry 04/15/18 09:11 Temperature Pulse Rate Respiratory 20 Rate Blood Pressure (mmHg) O2 Sat by Pulse Oximetry Oxygen Devices in Use Now: Nasal Cannula Appearance: sleeping, arouses to voice Eyes: No Scleral Icterus Ears/Nose/Mouth/Throat: Clear Oropharnyx Neck: No Thyroid Enlargement, Masses Respiratory: Symmetrical Chest Expansion and Respiratory Effort, - - diminished throughout Cardiovascular: NL Sounds; No Murmurs; No JVD Abdominal: No Hepatosplenomegaly, - - tender periumbilical, soft, distended Lymphatic: No Cervical Adenopathy Skin: No Rash or Ulcers Neurological: Alert and Oriented x 3 Lines/Tubes/Other Access: Clean, Dry and Intact Peripheral IV Nutrition: Taking PO's Result Diagrams: 04/14/18 17:57 04/14/18 17:57 Additional Lab and Data: Laboratory Tests 04/14/18 04/14/18 04/15/18 17:57 20:45 00:04 Troponin I 0.01 0.00 B-Natriuretic Peptide 42 Assess/Plan/Problems-Billing Assessment: 82 year old man w/ alcohol abuse, COPD due to asthma, CAD, here with COPD exacerbation, need for alcohol detox. - Patient Problems (1) Acute on chronic respiratory failure with hypoxia Current Visit: No Status: Acute Priority: High Code(s): J96.21 - ACUTE AND CHRONIC RESPIRATORY FAILURE WITH HYPOXIA SNOMED Code(s): 23471630 Comment: - Will continue steroids by oral route, taper back to 10 mg/day maintenance. - Add azithromycin to treat bronchitis - Oxygen, nebulizers (2) Alcohol withdrawal Current Visit: Yes Status: Acute Priority: Medium Code(s): F10.239 - ALCOHOL DEPENDENCE WITH WITHDRAWAL, UNSPECIFIED SNOMED Code(s): 654326332 Comment: - Continue [facility] protocol - consider discharging on naloxone orally to prevent relapse (3) Chest pain Current Visit: No Status: Acute Code(s): R07.9 - CHEST PAIN, UNSPECIFIED SNOMED Code(s): 00853107 Comment: - Resolved - Troponin negative X2 - Recommend outpatient stress test and followup with Cardiology (4) DVT prophylaxis Current Visit: No Status: Acute Code(s): VKA5087 - SNOMED Code(s): 269558282 Comment: - SQ heparin Status and Disposition: requires inpatient stay due to alcohol WD and resp failure
[2018-04-15] MEDS: predniSONE TAB* 20 MG PO SCH (11:38)
[2018-04-15] MEDS: Atorvastatin* 80 MG TAB PO SCH (17:14)
[2018-04-15] MEDS: Azithromycin IV(*) 500 MG in NS 0.9% 250 ML* 250 ML IVPB SCH (17:14)
[2018-04-15] MEDS: Montelukast Sodium TAB* 10 MG PO SCH (20:29)
[2018-04-16] MEDS: LORazepam INJ* 2 MG/ML 1 ML VIAL IV PUSH SCH ×11 (00:14→22:32)
[2018-04-16] MEDS: Heparin VIAL(*) 5000 UNITS/ML VIAL (FIVE THOUSAND) SUBCUT SCH ×3 (05:35→20:50)
[2018-04-16 05:39] LABS: ABS Basophils 0 10^3/ul (0-0.2); ABS Eosinophils 0 10^3/ul (0-0.6); ABS Lymphocytes 0.9 10^3/ul (1.0-4.8); ABS Monocytes 0.6 10^3/ul (0-0.8); ABS Neutrophils 5.4 10^3/ul (1.5-7.7); ABS Nucleated RBC 0 10^3/ul; Eosinophil % 0 % (0-6); Hematocrit 38 % (42-52); Hemoglobin 12.8 g/dl (14.0-18.0); Lymphocyte % 12.7 % (25-47); Mean Corpuscular HGB Conc 34 g/dl (31-36); Mean Corpuscular Hemoglobin 31 pg (27-31); Mean Corpuscular Volume 90 fL (80-94); Mean Platelet Volume 8.1 um3 (7.4-10.4); Nucleated Red Blood Cells % 0; Platelet Count 187 10^3/ul (150-450); Red Blood Count 4.18 10^6/ul (4.00-5.40); Red Cell Distribution Width 14 % (10.5-15); White Blood Count 6.9 10^3/ul (3.5-10.8)
[2018-04-16] MEDS: Albuterol 2.5 MG/3 ML NEB.SOL* (0.083%) INH SCH ×4 (07:00→19:40)
[2018-04-16] MEDS: Mometasone/Formoter 200/5 MDI INH SCH ×2 (07:40→19:40)
[2018-04-16] MEDS: Tiotropium CAP.INH* CAP.INH/18 MCG (USE ORDER SET !) INH SCH (07:41)
[2018-04-16] MEDS: predniSONE TAB* 20 MG PO SCH (08:31)
[2018-04-16] MEDS: Multivitamins/Minerals TAB PO SCH (08:32)
[2018-04-16] MEDS: Metoprolol Succinate XL TAB* 25 MG PO SCH (08:32)
[2018-04-16] MEDS: Docusate CAP* 100 MG PO SCH ×2 (08:32→20:50)
[2018-04-16] MEDS: Folic Acid TAB* 1 MG PO SCH (08:32)
[2018-04-16] MEDS: Thiamine TAB* 100 MG TAB PO SCH (08:32)
[2018-04-16] MEDS: amLODIPine TAB* 5 MG PO SCH (08:32)
[2018-04-16] MEDS: Tamsulosin CAP* 0.4 MG PO SCH (08:32)
[2018-04-16] MEDS: Omeprazole CAP* 20 MG PO SCH (08:32)
[2018-04-16] MEDS: Aspirin EC TAB* 81 MG TAB.EC PO SCH (08:33)
--- NOTE | 2018-04-16 16:36 | PN ---
Subjective Date of Service: 04/16/18 Interval History: Patient was seen and examined at bedside. Reports doing well, denies any complaints. Son is present in room, tells me about d/c plans to have patient possibly living with his daughter. Patient denies chest pain, palpitations or SOB. Ambulatory, no weakness or dizziness. Denies tremors or agitation, despite visible occasional upper limbs twitches. Family History: Unchanged from Admission Social History: Unchanged from Admission Past Medical History: Unchanged from Admission Objective Active Medications: Acetaminophen (Tylenol Tab*) 650 mg PO Q6H PRN PRN Reason: FEVER/PAIN Albuterol (Ventolin 2.5 Mg/3 Ml Neb.Marlena*) 2.5 mg INH Q2H PRN PRN Reason: SOB/WHEEZING Albuterol (Ventolin 2.5 Mg/3 Ml Neb.Marlena*) 2.5 mg INH [id number] AWAKE [facility] Last Admin: 04/16/18 12:53 Dose: Not Given Amlodipine Besylate (Norvasc Tab*) 5 mg PO DAILY [facility] Last Admin: 04/16/18 08:32 Dose: 5 mg Aspirin (Aspirin Ec Tab*) 81 mg PO DAILY [facility] Last Admin: 04/16/18 08:33 Dose: 81 mg Atorvastatin Calcium (Lipitor*) 80 mg PO QPM [facility] Last Admin: 04/15/18 17:14 Dose: 80 mg Device (Tiotropium Inhaler Device*) 1 each .SEE ORDER .USE w/ SPIRIVA CAPS [facility] Docusate Sodium (Colace Cap*) 200 mg PO BID [facility] Last Admin: 04/16/18 08:32 Dose: 200 mg Folic Acid (Folvite Tab*) 1 mg PO DAILY [facility] Last Admin: 04/16/18 08:32 Dose: 1 mg Heparin Sodium (Porcine) (Heparin Vial(*)) 5,000 units SUBCUT Q8HR [facility] Last Admin: 04/16/18 14:10 Dose: 5,000 units Azithromycin 500 mg/ Sodium (Chloride) 250 mls @ 250 mls/hr IVPB Q24H [facility] Last Admin: 04/15/18 17:14 Dose: 250 mls/hr Lorazepam (Ativan Inj*) 0 - 6 mg IV PUSH .PER [facility] PROTOCOL [facility]; Protocol Last Admin: 04/16/18 14:07 Dose: 2 mg Melatonin (Melatonin) 3 mg PO BEDTIME PRN; Protocol PRN Reason: Sleep Last Admin: 04/15/18 02:15 Dose: 3 mg Metoprolol Succinate (Toprol Xl Tab*) 25 mg PO DAILY [facility] Last Admin: 04/16/18 08:32 Dose: 25 mg Mometasone Furoate/Formoterol Fumar (Dulera 200/5 Mdi*) 2 puff INH BID [facility] Last Admin: 04/16/18 07:40 Dose: 2 puff Montelukast Sodium (Singulair Tab*) 10 mg PO BEDTIME [facility] Last Admin: 04/15/18 20:29 Dose: 10 mg Multivitamins/Minerals (Theragran/Minerals Tab*) 1 tab PO DAILY [facility] Last Admin: 04/16/18 08:32 Dose: 1 tab Omeprazole (Prilosec Cap*) 20 mg PO DAILY [facility] Last Admin: 04/16/18 08:32 Dose: 20 mg Ondansetron HCl (Zofran Odt Tab*) 4 mg PO Q6H PRN PRN Reason: n/v Prednisone (Deltasone Tab*) 50 mg PO DAILY [facility] Tamsulosin HCl (Flomax Cap*) 0.4 mg PO DAILY [facility] Last Admin: 04/16/18 08:32 Dose: 0.4 mg Thiamine HCl (Vitamin B-1 Tab*) 100 mg PO DAILY [facility] Last Admin: 04/16/18 08:32 Dose: 100 mg Tiotropium [place] (Spiriva Cap.Inh*) 1 cap INH DAILY [facility] Last Admin: 04/16/18 07:41 Dose: 1 cap Vital Signs - 8 hr 04/16/18 04/16/18 04/16/18 08:42 08:45 10:07 Temperature 97.9 F Pulse Rate 75 Respiratory 24 24 28 Rate Blood Pressure 143/85 (mmHg) O2 Sat by Pulse 100 Oximetry 04/16/18 04/16/18 04/16/18 11:26 13:15 14:07 Temperature 97.4 F Pulse Rate 78 Respiratory 16 24 24 Rate Blood Pressure 155/83 (mmHg) O2 Sat by Pulse 99 Oximetry 04/16/18 04/16/18 04/16/18 14:13 15:51 16:02 Temperature 97.1 F Pulse Rate 82 Respiratory 24 18 18 Rate Blood Pressure 156/77 (mmHg) O2 Sat by Pulse 99 Oximetry Oxygen Devices in Use Now: Nasal Cannula Appearance: Laying in bed, appears comfortable and in NAD Eyes: No Scleral Icterus, PERRLA Ears/Nose/Mouth/Throat: Clear Oropharnyx, Mucous Membranes Moist Neck: NL Appearance and Movements; NL JVP, Trachea Midline Respiratory: Symmetrical Chest Expansion and Respiratory Effort, - - Mild bibasilar wheezes and rhonchi noted. Cardiovascular: NL Sounds; No Murmurs; No JVD, RRR Abdominal: NL Sounds; No Tenderness; No Distention Extremities: No Edema Neurological: Alert and Oriented x 3 Nutrition: Taking PO's Result Diagrams: 04/16/18 05:17 04/16/18 05:17 Additional Lab and Data: Lab Results 04/14/18 Range/Units 17:07 ABG pH 7.37 (7.35-7.45) ABG pCO2 41 (35-45) mmHg ABG pO2 82 (80-100) mmHg ABG HCO3 23.7 (19-31) mmol/L ABG O2 Saturation 96.0 (95-98) % ABG Base Excess -1.5 (-2.0-2.0) Microbiology and Other Data: . Diagnostic Imaging: . EKG Data: . 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 - Patient Problems (1) Acute on chronic respiratory failure with hypoxia Current Visit: No Status: Acute Comment: - Will continue steroids by oral route, taper back to 10 mg/day maintenance, starting at 50mg tomorrow. - Add azithromycin to treat bronchitis/COPD exacerbations - Oxygen, nebulizers (2) Alcohol withdrawal Current Visit: Yes Status: Acute Comment: - Continue [place] protocol - Consider discharging on naloxone orally to prevent relapse - Social workers consult for ETOH rehab if needed (3) COPD (chronic obstructive pulmonary disease) Current Visit: No Status: Acute Comment: - Complete course of prednisone; continue bronchdilators and nebulizers. - Clinically improving (4) Chest pain Current Visit: No Status: Acute Comment: - Resolved - Troponin negative X2 - Recommend outpatient stress test and followup with Cardiology (5) HTN (hypertension) Current Visit: No Status: Acute Comment: - SBP 140-160s. - Continue metoprolol, resume norvasc (6) History of coronary artery disease Current Visit: No Status: Chronic Comment: - Continue ASA, metoprolol and atorvastatin. (7) DVT prophylaxis Current Visit: No Status: Acute Comment: - SQ heparin (8) Full code status Current Visit: No Status: Acute Status and Disposition: Requires inpatient stay due to alcohol WD and resp failure. Likely for placement to STR.
[2018-04-16] MEDS: Azithromycin IV(*) 500 MG in NS 0.9% 250 ML* 250 ML IVPB SCH (17:07)
[2018-04-16] MEDS: Atorvastatin* 80 MG TAB PO SCH (20:49)
[2018-04-16] MEDS: Montelukast Sodium TAB* 10 MG PO SCH (20:50)
[2018-04-17] MEDS: LORazepam INJ* 2 MG/ML 1 ML VIAL IV PUSH SCH ×6 (00:13→20:17)
[2018-04-17] MEDS ORDERED: Haloperidol INJ IV/IM* 5 MG/ML AMP IV SLOW PU ONE (01:43)
[2018-04-17] MEDS ORDERED: Haloperidol INJ IV/IM* 5 MG/ML AMP ONE (01:44)
[2018-04-17] MEDS: Albuterol 2.5 MG/3 ML NEB.SOL* (0.083%) INH SCH ×4 (02:26→19:35)
[2018-04-17 04:26] LABS: ABS Basophils 0 10^3/ul (0-0.2); ABS Eosinophils 0 10^3/ul (0-0.6); ABS Lymphocytes 1.1 10^3/ul (1.0-4.8); ABS Monocytes 0.5 10^3/ul (0-0.8); ABS Neutrophils 5.6 10^3/ul (1.5-7.7); ABS Nucleated RBC 0 10^3/ul; Eosinophil % 0.2 % (0-6); Hematocrit 40 % (42-52); Hemoglobin 13.4 g/dl (14.0-18.0); Lymphocyte % 15.1 % (25-47); Mean Corpuscular HGB Conc 34 g/dl (31-36); Mean Corpuscular Hemoglobin 31 pg (27-31); Mean Corpuscular Volume 90 fL (80-94); Mean Platelet Volume 7.7 um3 (7.4-10.4); Nucleated Red Blood Cells % 0.1; Platelet Count 185 10^3/ul (150-450); Red Cell Distribution Width 14 % (10.5-15); White Blood Count 7.3 10^3/ul (3.5-10.8)
[2018-04-17] MEDS: Heparin VIAL(*) 5000 UNITS/ML VIAL (FIVE THOUSAND) SUBCUT SCH ×3 (04:41→20:17)
[2018-04-17] MEDS: Mometasone/Formoter 200/5 MDI INH SCH ×2 (08:01→19:36)
[2018-04-17] MEDS: Tiotropium CAP.INH* CAP.INH/18 MCG (USE ORDER SET !) INH SCH (08:01)
[2018-04-17] MEDS: Aspirin EC TAB* 81 MG TAB.EC PO SCH (08:12)
[2018-04-17] MEDS: Folic Acid TAB* 1 MG PO SCH (08:12)
[2018-04-17] MEDS: Multivitamins/Minerals TAB PO SCH (08:12)
[2018-04-17] MEDS: amLODIPine TAB* 5 MG PO SCH (08:12)
[2018-04-17] MEDS: Omeprazole CAP* 20 MG PO SCH (08:12)
[2018-04-17] MEDS: Thiamine TAB* 100 MG TAB PO SCH (08:12)
[2018-04-17] MEDS: Metoprolol Succinate XL TAB* 25 MG PO SCH (08:12)
[2018-04-17] MEDS: Tamsulosin CAP* 0.4 MG PO SCH (08:12)
[2018-04-17] MEDS: Docusate CAP* 100 MG PO SCH ×2 (08:13→20:17)
[2018-04-17] MEDS ORDERED: predniSONE TAB* 50 MG PO SCH (09:00)
--- NOTE | 2018-04-17 13:28 | PN ---
Subjective Date of Service: 04/17/18 Interval History: Patient was seen and examined at bedside. Reports feeling well, more alert and coherent today per his son. Denies chest pain, palpitations, SOB or wheezing. He feels hungry, denies nausea or vomiting. He is agreeable to rehab facility placement for discharge planning. Family will meet with social director this PM to discuss options. He has no complaints today. Family History: Unchanged from Admission Social History: Unchanged from Admission Past Medical History: Unchanged from Admission Objective Active Medications: Acetaminophen (Tylenol Tab*) 650 mg PO Q6H PRN PRN Reason: FEVER/PAIN Albuterol (Ventolin 2.5 Mg/3 Ml Neb.Marlena*) 2.5 mg INH Q2H PRN PRN Reason: SOB/WHEEZING Albuterol (Ventolin 2.5 Mg/3 Ml Neb.Marlena*) 2.5 mg INH [id number] AWAKE [facility] Last Admin: 04/17/18 08:01 Dose: 2.5 mg Amlodipine Besylate (Norvasc Tab*) 5 mg PO DAILY [facility] Last Admin: 04/17/18 08:12 Dose: 5 mg Aspirin (Aspirin Ec Tab*) 81 mg PO DAILY [facility] Last Admin: 04/17/18 08:12 Dose: 81 mg Atorvastatin Calcium (Lipitor*) 80 mg PO QPM [facility] Last Admin: 04/16/18 20:49 Dose: 80 mg Device (Tiotropium Inhaler Device*) 1 each .SEE ORDER .USE w/ SPIRIVA CAPS [facility] Docusate Sodium (Colace Cap*) 200 mg PO BID [facility] Last Admin: 04/17/18 08:13 Dose: 200 mg Folic Acid (Folvite Tab*) 1 mg PO DAILY [facility] Last Admin: 04/17/18 08:12 Dose: 1 mg Heparin Sodium (Porcine) (Heparin Vial(*)) 5,000 units SUBCUT Q8HR [facility] Last Admin: 04/17/18 04:41 Dose: 5,000 units Azithromycin 500 mg/ Sodium (Chloride) 250 mls @ 250 mls/hr IVPB Q24H [facility] Last Admin: 04/16/18 17:07 Dose: 250 mls/hr Lorazepam (Ativan Inj*) 0 - 6 mg IV PUSH .PER [facility] PROTOCOL [facility]; Protocol Last Admin: 04/17/18 08:12 Dose: 2 mg Melatonin (Melatonin) 3 mg PO BEDTIME PRN; Protocol PRN Reason: Sleep Last Admin: 04/15/18 02:15 Dose: 3 mg Metoprolol Succinate (Toprol Xl Tab*) 25 mg PO DAILY [facility] Last Admin: 04/17/18 08:12 Dose: 25 mg Mometasone Furoate/Formoterol Fumar (Dulera 200/5 Mdi*) 2 puff INH BID [facility] Last Admin: 04/17/18 08:01 Dose: 2 puff Montelukast Sodium (Singulair Tab*) 10 mg PO BEDTIME [facility] Last Admin: 04/16/18 20:50 Dose: 10 mg Multivitamins/Minerals (Theragran/Minerals Tab*) 1 tab PO DAILY [facility] Last Admin: 04/17/18 08:12 Dose: 1 tab Omeprazole (Prilosec Cap*) 20 mg PO DAILY [facility] Last Admin: 04/17/18 08:12 Dose: 20 mg Ondansetron HCl (Zofran Odt Tab*) 4 mg PO Q6H PRN PRN Reason: n/v Last Admin: 04/16/18 22:33 Dose: 4 mg Prednisone (Deltasone Tab*) 50 mg PO DAILY [facility] Last Admin: 04/17/18 08:12 Dose: 50 mg Tamsulosin HCl (Flomax Cap*) 0.4 mg PO DAILY [facility] Last Admin: 04/17/18 08:12 Dose: 0.4 mg Thiamine HCl (Vitamin B-1 Tab*) 100 mg PO DAILY [facility] Last Admin: 04/17/18 08:12 Dose: 100 mg Tiotropium [place] (Spiriva Cap.Inh*) 1 cap INH DAILY [facility] Last Admin: 04/17/18 08:01 Dose: 1 cap Vital Signs - 8 hr 04/17/18 04/17/18 04/17/18 05:54 06:00 06:31 Temperature 98.1 F Pulse Rate 60 Respiratory 18 18 16 Rate Blood Pressure 103/53 (mmHg) O2 Sat by Pulse 98 Oximetry 04/17/18 04/17/18 04/17/18 06:35 07:35 07:58 Temperature 98.0 F Pulse Rate 82 Respiratory 16 19 18 Rate Blood Pressure 139/83 (mmHg) O2 Sat by Pulse 98 Oximetry 04/17/18 04/17/18 04/17/18 07:59 08:00 08:12 Temperature Pulse Rate 79 Respiratory 18 19 19 Rate Blood Pressure (mmHg) O2 Sat by Pulse 97 Oximetry 04/17/18 04/17/18 04/17/18 09:22 09:52 12:04 Temperature 97.6 F 98.3 F Pulse Rate 68 82 Respiratory 18 19 19 Rate Blood Pressure 126/75 140/82 (mmHg) O2 Sat by Pulse 98 96 Oximetry Oxygen Devices in Use Now: Nasal Cannula Appearance: Appears comfortable and in NAD. Eyes: No Scleral Icterus, PERRLA Ears/Nose/Mouth/Throat: Clear Oropharnyx, Mucous Membranes Moist Neck: NL Appearance and Movements; NL JVP, Trachea Midline Respiratory: Symmetrical Chest Expansion and Respiratory Effort, - - Breath sounds diminished bilaterally. No wheezes or rhonchi noted. Cardiovascular: NL Sounds; No Murmurs; No JVD, RRR Abdominal: NL Sounds; No Tenderness; No Distention Extremities: No Edema Neurological: Alert and Oriented x 3 Nutrition: Taking PO's Result Diagrams: 04/17/18 04:15 04/16/18 05:17 Additional Lab and Data: Lab Results 04/14/18 Range/Units 17:07 ABG pH 7.37 (7.35-7.45) ABG pCO2 41 (35-45) mmHg ABG pO2 82 (80-100) mmHg ABG HCO3 23.7 (19-31) mmol/L ABG O2 Saturation 96.0 (95-98) % ABG Base Excess -1.5 (-2.0-2.0) Microbiology and Other Data: . Diagnostic Imaging: . EKG Data: . 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 - Patient Problems (1) Acute on chronic respiratory failure with hypoxia Current Visit: No Status: Acute Comment: - Will continue steroids by oral route, taper back to 10 mg/day maintenance, starting at 40mg tomorrow. - Add azithromycin to treat bronchitis/COPD exacerbations - Oxygen, nebulizers - Clinically improving (2) Alcohol withdrawal Current Visit: Yes Status: Acute Comment: - Continue WAM protocol - Consider discharging on naloxone orally to prevent relapse - Social workers consult for ETOH rehab if needed - Plan for family meeting with social director today to discuss placement plans (3) COPD (chronic obstructive pulmonary disease) Current Visit: No Status: Acute Comment: - Complete course of prednisone; continue bronchdilators and nebulizers. - Clinically improving (4) Chest pain Current Visit: No Status: Acute Comment: - Resolved - Troponin negative X2 - Recommend outpatient stress test and followup with Cardiology (5) HTN (hypertension) Current Visit: No Status: Acute Comment: - SBP 140-160s. - Continue metoprolol, resume norvasc (6) History of coronary artery disease Current Visit: No Status: Chronic Comment: - Continue ASA, metoprolol and atorvastatin. (7) DVT prophylaxis Current Visit: No Status: Acute Comment: - SQ heparin (8) Full code status Current Visit: No Status: Acute Status and Disposition: Requires inpatient stay due to alcohol WD and resp failure. Likely for placement to STR.
[2018-04-17] MEDS: Azithromycin IV(*) 500 MG in NS 0.9% 250 ML* 250 ML IVPB SCH (17:44)
[2018-04-17] MEDS: Atorvastatin* 80 MG TAB PO SCH (17:44)
[2018-04-17] MEDS: Montelukast Sodium TAB* 10 MG PO SCH (20:17)
[2018-04-18] MEDS: LORazepam INJ* 2 MG/ML 1 ML VIAL IV PUSH SCH ×2 (00:12→04:13)
[2018-04-18] MEDS: Albuterol 2.5 MG/3 ML NEB.SOL* (0.083%) INH SCH ×2 (01:30→07:09)
[2018-04-18 02:36] LABS: Urine Appearance Clear; Urine Blood Negative (Negative); Urine Color Yellow; Urine Ketones Negative (Negative); Urine Protein Negative (Negative); Urine Specific Gravity 1.016 (1.010-1.030); Urine Urobilinogen Positive (Negative)
[2018-04-18] MEDS: Heparin VIAL(*) 5000 UNITS/ML VIAL (FIVE THOUSAND) SUBCUT SCH (04:13)
[2018-04-18] MEDS: Nystatin TOP POWDER* 15 GM BTL TOPICAL SCH ×2 (04:14→08:14)
[2018-04-18] MEDS: Tiotropium CAP.INH* CAP.INH/18 MCG (USE ORDER SET !) INH SCH (07:13)
[2018-04-18] MEDS: Mometasone/Formoter 200/5 MDI INH SCH (07:13)
--- NOTE | 2018-04-18 08:08 | RAD ---
INDICATION: Chest pain COMPARISON: April 14, 2018 TECHNIQUE: An AP portable view obtained at 0600 hours is submitted. FINDINGS: Bones/Soft Tissues: There are no acute bony findings. Cardiomediastinal: The cardiomediastinal silhouette is normal. Lungs: There are no infiltrates. Pleura: There are no pleural effusions. Other: None IMPRESSION: NO ACTIVE DISEASE. R1
[2018-04-18] MEDS: Omeprazole CAP* 20 MG PO SCH (08:13)
[2018-04-18] MEDS: Metoprolol Succinate XL TAB* 25 MG PO SCH (08:13)
[2018-04-18] MEDS: Folic Acid TAB* 1 MG PO SCH (08:13)
[2018-04-18] MEDS: Aspirin EC TAB* 81 MG TAB.EC PO SCH (08:14)
[2018-04-18] MEDS: Tamsulosin CAP* 0.4 MG PO SCH (08:14)
[2018-04-18] MEDS: Thiamine TAB* 100 MG TAB PO SCH (08:14)
[2018-04-18] MEDS: amLODIPine TAB* 5 MG PO SCH (08:14)
[2018-04-18] MEDS: Multivitamins/Minerals TAB PO SCH (08:14)
[2018-04-18] MEDS: Docusate CAP* 100 MG PO SCH (08:14)
[2018-04-18] MEDS ORDERED: predniSONE TAB* 20 MG PO SCH (09:00)
[2018-04-18] MEDS ORDERED: Albuterol/Ipratropium NEB.SOL* Albuterol 2.5 MG/Ipratropium 0.5 MG 3 ML INH ONE (10:45)
--- NOTE | 2018-04-18 12:21 | DS ---
CC: Dr. Garay* DATE OF ADMISSION: 04/14/2018. DATE OF DISCHARGE: 04/18/2018. ADMITTING HOSPITALIST: Dr. Donny Gould. ATTENDING HOSPITALIST WHILE IN THE HOSPITAL: Dr. January Lopez* (dictated by ROSS Aguayo). PRIMARY CARE PHYSICIAN: Dr. Corey Garay. ADMISSION DIAGNOSES: 1. Wheezing. 2. Dyspnea on exertion. 3. History of asthma/COPD. 4. Coronary artery disease. 5. Hypertension. 6. Hyperlipidemia. 7. GERD. DISCHARGE DIAGNOSES: 1. Wheezing. 2. Dyspnea on exertion. 3. History of asthma/COPD. 4. Coronary artery disease. 5. Hypertension. 6. Hyperlipidemia. 7. GERD. 8. Alcohol withdrawal. CONSULTATIONS: None. PROCEDURES: None. HISTORY OF PRESENT ILLNESS: Mr. Solomon is an 82-year-old gentleman who has a past medical history significant for hypertension, hyperlipidemia, GERD, COPD with occasional exacerbation as well as a history of coronary artery disease for which he had a stent in the past. The patient presented to the emergency room on 04/14/2018 with complaints of progressive shortness of breath as well as exertional dyspnea. He was found to have prominent wheezes and low oxygen saturation for which a chest CTA was done and was negative for PE or pneumonia. The patient received a high dose of Solu-Medrol as well as a nebulizer treatment and oxygen with some improvement in the emergency room, but given his ongoing symptoms, we were asked to see the patient to consider admission. The patient also has a long- standing history of ETOH abuse and he states that he drinks about six packs of beer daily. He was admitted with [facility] protocol in place and social consultation was obtained to consider placement after speaking to his family member. HOSPITAL COURSE: The patient was admitted by the Hospitalist Service and was kept on the Medical floor for observation. His laboratory work-up was obtained on a daily basis revealing a normal white count as well a normal hemoglobin and hematocrit. His chemistry panel as well revealed no evidence of electrolyte disturbance. His troponin was negative and he had no complaints of chest pain. He maintained a good saturation, averaging mid 90s to high 90s on 2 liter oxygen per nasal cannula. He was able to ambulate with minimal exertional dyspnea. He had a PT/OT evaluation and he was considered for placement to short -term rehab given his long standing COPD, physical decompensation, as well as long-standing history of alcohol abuse. The patient scored 10 to 12 on a WAM protocol on the first couple of days for which he was covered with Ativan per protocol. He continued to improve from a cognitive standpoint and he was alert and oriented in the past couple of days prior to his discharge. Brick Wheeler had a meeting with family members, including his daughter who carries the healthcare proxy and the agreement was made with the patient approval for placement at short-term rehab. Today, he was noted to have mild shortness of breath that was relieved after DuoNeb nebulizer treatment. He was ambulatory out of bed and in stable condition. His vital revealed a temperature of 97.7, pulse of 88, respiration of 20 with an O2 sat of 95 percent on room air. His blood pressure was 149/86. His lungs were clear to auscultation with very minimal bibasilar wheezes. His heart was regular rate and rhythm without rubs, murmurs, or gallops. His abdomen was soft, nontender, nondistended. His extremities showed no evidence of edema. He will be discharged to [facility] today and to follow-up with his primary care physician in one to two weeks. The patient will be covered with a Prednisone taper dose as well as a five day course of Azithromycin considering coverage for bronchitis due to COPD exacerbation. DISCHARGE MEDICATIONS: 1. Norvasc 5 mg p.o. daily. 2. Aspirin 81 mg p.o. daily. 3. Lipitor 80 mg p.o. at bedtime. 4. Toprol XL 25 mg p.o. daily. 5. Singulair 10 mg p.o. at bedtime. 6. Prilosec 20 mg p.o. daily. 7. Flomax 0.4 mg p.o. daily. 8. Tylenol 650 mg p.o. q.6 hours as needed for fever or pain. 9. Albuterol nebulizer 2.5 mg/3 ml inhaled q.6 hours as needed for shortness of breath. 10. Azithromycin 250 mg p.o. daily times five days. 11. Colace 200 mg p.o. b.i.d. 12. Flovent one puff inhaled b.i.d. 13. Folic acid 1 mg p.o. daily. 14. Mucinex 600 mg p.o. b.i.d. times 10 days. 15. Multivitamin one tablet p.o. daily. 16. Prednisone 10 mg p.o. dosed at 40 mg once daily times 2 days, then 30 mg once daily times 2 days, then 20 mg once daily times 2 days, then 10 mg once daily times 2 days, then discontinue. 17. Spiriva one cap inhaled once daily. ROSS AGUAYO [id number]/[facility] #: [id number] [facility]
[2018-04-18 12:47] VITALS: BP 128/67
== END 2018-04-18 13:10 | DRG 190 ==
LOC: ED 16:24 → MED 22:16
PROVIDERS: ADMIT Hospitalist; ATTEND Hospitalist
PROC: HZ2ZZZZ Detoxification Services for Substance Abuse Treatment (ICD-10-PCS; principal; 2018-04-14)
DX: J44.1 Chronic obstructive pulmonary disease with (acute) exacerbation (principal); J96.01 Acute respiratory failure with hypoxia; I45.2 Bifascicular block; F10.239 Alcohol dependence with withdrawal, unspecified; I25.10 Atherosclerotic heart disease of native coronary artery without angina pectoris; E78.00 Pure hypercholesterolemia, unspecified; I10 Essential (primary) hypertension; K21.9 Gastro-esophageal reflux disease without esophagitis; M06.9 Rheumatoid arthritis, unspecified; M19.042 Primary osteoarthritis, left hand; M19.041 Primary osteoarthritis, right hand; M16.0 Bilateral primary osteoarthritis of hip; H91.90 Unspecified hearing loss, unspecified ear; E78.5 Hyperlipidemia, unspecified; N40.0 Benign prostatic hyperplasia without lower urinary tract symptoms; R00.0 Tachycardia, unspecified; Z91.09 Other allergy status, other than to drugs and biological substances; Z87.01 Personal history of pneumonia (recurrent); Z72.89 Other problems related to lifestyle; Z95.5 Presence of coronary angioplasty implant and graft; Z82.49 Family history of ischemic heart disease and other diseases of the circulatory system; Z79.82 Long term (current) use of aspirin; Z79.52 Long term (current) use of systemic steroids
CPT/HCPCS: 36415; 71045; 71275; 80048; 80053; 81003; 82803; 83605; 83880; 84484; 85025; 85610; 85730; 93005; 94640; 99285; A9270-GY; G8978-GP-CL; G8979-GP-CI; G8987-GO-CK; G8988-GO-CH; G8989-GO-CH; J0456; J1100; J1630; J1644; J2060; J3411; J7512; J7611; Q9967

== ENCOUNTER 2018-12-08 11:17 | Emergency (ER) | payer MEDICARE ==
[2018-12-08 11:27] VITALS: BP 139/89
--- NOTE | 2018-12-08 12:05 | UC ---
Abdominal Pain Male HPI - HPI Summary HPI Summary: 4 days of watery stool for 4 days up to 6-7 per day---no fevers, recent travel , antibiotics, no one else at home with similar symptoms----no similar episodes in past-- - History of Current Complaint Chief Complaint: UCGI Stated Complaint: STOMACH ISSUES Time Seen by Provider: 12/08/18 11:59 Hx Obtained From: Patient Onset/Duration: Sudden Onset, Lasting Days - 4, Still Present Timing: Constant Severity Initially: Moderate Severity Currently: Moderate Pain Intensity: 5 Pain Scale Used: 0-10 Numeric Location: Discrete At: LLQ Radiates: No Character: Aching, Cramping Aggravating Factor(s): Food Alleviating Factor(s): Nothing - stools did slow down with immodium Associated Signs And Symptoms: Positive: Diarrhea - Allergies/Home Medications Allergies/Adverse Reactions: Allergies Allergy/AdvReac Type Severity Reaction Status Date / Time bovine lipid extract Allergy Intermediate Itching Verified 12/08/18 11:28 surfactant cow dander Allergy Intermediate Itching Verified 12/08/18 11:28 dust Allergy Unknown Uncoded 12/08/18 11:28 Reaction Details PMH/Surg Hx/FS Hx/Imm Hx Previously Healthy: No Endocrine History: Dyslipidemia Cardiovascular History: Cardiac Disease Respiratory History: COPD GI/ History: Other Other GI/ History: BPH - Surgical History Surgical History: Yes Surgery Procedure, Year, and Place: CARDIAC STENT =2007. right rotator cuff. Right leg - Family History Known Family History: Positive: Hypertension - Social History Occupation: Retired Lives: With Family Alcohol Use: None Alcohol Amount: pt states he stopped 04/13/18 Substance Use Type: None Smoking Status (MU): Never Smoked Tobacco Have You Smoked in the Last Year: No Household Exposure Type: Cigars - Immunization History Most Recent Influenza Vaccination: fall 2015 Most Recent Pneumonia Vaccination: never Review of Systems All Other Systems Reviewed And Are Negative: Yes Constitutional: Positive: Negative Skin: Positive: Negative Eyes: Positive: Negative ENT: Positive: Negative Respiratory: Positive: Negative Cardiovascular: Positive: Negative Gastrointestinal: Positive: Abdominal Pain, Diarrhea Genitourinary: Positive: Negative Motor: Positive: Negative Neurovascular: Positive: Negative Musculoskeletal: Positive: Negative Neurological: Positive: Negative Psychological: Positive: Negative Is Patient Immunocompromised?: No Physical Exam Triage Information Reviewed: Yes Appearance: Well-Appearing, No Pain Distress, Well-Nourished Vital Signs: Initial Vital Signs Temp 98.8 F 12/08/18 11:24 Pulse 66 12/08/18 11:24 Resp 12 12/08/18 11:24 BP 139/89 12/08/18 11:24 Pulse Ox 98 12/08/18 11:24 Vital Signs Reviewed: Yes Eye Exam: Normal Eyes: Positive: Conjunctiva Clear ENT Exam: Normal ENT: Positive: Normal ENT inspection, Hearing grossly normal. Negative: Trismus , Muffled voice, Hoarse voice Neck exam: Normal Neck: Positive: Supple, Nontender Respiratory Exam: Normal Respiratory: Positive: Chest non-tender, Lungs clear, Normal breath sounds, No respiratory distress, No accessory muscle use Cardiovascular Exam: Normal Cardiovascular: Positive: RRR, No Murmur, Pulses Normal, Brisk Capillary Refill Abdominal Exam: Other Abdomen Description: Positive: No Organomegaly, Distended, Other: - tender LLQ, large round tympanic. Negative: CVA Tenderness (R), CVA Tenderness (L), Hernia @, Hepatomegaly, McBurney's Point Tenderness, Peritoneal Signs Bowel Sounds: Positive: Hypoactive Musculoskeletal Exam: Normal Musculoskeletal: Positive: Strength Intact, ROM Intact, No Edema Neurological Exam: Normal Neurological: Positive: Alert, Muscle Tone Normal Psychological Exam: Normal Skin Exam: Normal Abd Pain Male Course/Dx - Course Course Of Treatment: NPO, to hospital for further assessment - Differential Dx/Clinical Impression Provider Diagnosis: Acute abdominal pain, Acute diarrhea Discharge - Sign-Out/Discharge Documenting (check all that apply): Patient Departure All imaging exams completed and their final reports reviewed: No Studies - Discharge Plan Condition: Fair Disposition: HOME-RECOMMEND TO ED Patient Education Materials: Acute Abdominal Pain (DC) Referrals: Corey Garay MD [Primary Care Provider] - Additional Instructions: nothing to eat or drink---go directly to the hospital for further evaluation in the emergency - Billing Disposition and Condition Condition: FAIR Disposition: Home-Recommend to ED
== END 2018-12-08 12:18 | disposition home health service (06) ==
LOC: UCEAST 11:17
DX: R10.32 Left lower quadrant pain (principal); R19.7 Diarrhea, unspecified; E78.5 Hyperlipidemia, unspecified; I51.9 Heart disease, unspecified; Z95.5 Presence of coronary angioplasty implant and graft; J44.9 Chronic obstructive pulmonary disease, unspecified; N40.0 Benign prostatic hyperplasia without lower urinary tract symptoms; Z88.8 Allergy status to other drugs, medicaments and biological substances; Z91.048 Other nonmedicinal substance allergy status
CPT/HCPCS: 99212; G0463

== ENCOUNTER 2018-12-08 12:42 | Emergency (ER) | payer MEDICARE ==
[2018-12-08] MEDS ORDERED: NS 0.9% 1000 ML** 1,000 ML IV ONE (13:09)
--- NOTE | 2018-12-08 13:09 | ED ---
GI/ HPI - HPI Summary HPI Summary: This patient is an 83 year old male presenting to [facility] with a chief complaint of diarrhea since 4 days ago. He said it is watery. He says it occurs 5 or 6 times everyday. He said he now is experiencing abdominal pain. He reports a burning chest pain that he attributes to GERD. He says he takes Tums and that usually relieves the GERD but it did not work today. He rates his pain 5/10 in severity. - History of Current Complaint Chief Complaint: EDAbdPain Time Seen by Provider: 12/08/18 13:01 Stated Complaint: ABD PAIN FROM CCC PER PT Hx Obtained From: Patient Onset/Duration: Started Days Ago Timing: Intermittent Severity: Moderate Current Severity: Moderate Pain Intensity: 5 Location of Pain: Diffuse Associated Signs and Symptoms: Positive: Diarrhea, Abdominal Pain, Chest Pain Aggravating Factor(s): Food - Additional Pertinent History Primary Care Physician: KYLE - Allergy/Home Medications Allergies/Adverse Reactions: Allergies Allergy/AdvReac Type Severity Reaction Status Date / Time bovine lipid extract Allergy Intermediate Itching Verified 12/08/18 12:47 surfactant cow dander Allergy Intermediate Itching Verified 12/08/18 12:47 dust Allergy Unknown Uncoded 12/08/18 12:47 Reaction Details PMH/Surg Hx/FS Hx/Imm Hx Endocrine/Hematology History: Reports: Hx Anemia - ON IRON 3X WEEKLY Denies: Hx Diabetes, Hx Thyroid Disease Cardiovascular History: Reports: Hx Coronary Artery Disease - stent, Hx Hypercholesterolemia, Hx Hypertension, Hx Syncope, Hx Valvular Heart Disease - MItral regurg Denies: Hx Angina, Hx Myocardial Infarction, Hx Pacemaker/ICD, Other Cardiovascular Problems/Disorders Respiratory History: Reports: Hx Asthma, Hx Chronic Obstructive Pulmonary Disease (COPD), Hx Pneumonia, Other Respiratory Problems/Disorders - HX OF COPD GI History: Reports: Hx Gastroesophageal Reflux Disease Denies: Hx Ulcer History: Denies: Hx Renal Disease Musculoskeletal History: Reports: Hx Arthritis - HANDS,HIPS, Hx Rheumatoid Arthritis Sensory History: Reports: Hx Contacts or Glasses - NOT WITH THE PT, Hx Deafness , Hx Hearing Problem - right ear completly deaf Denies: Hx Cataracts - REMOVED, Hx Hearing Aid Opthamlomology History: Reports: Hx Contacts or Glasses - NOT WITH THE PT Denies: Hx Cataracts - REMOVED Psychiatric History: Reports: Hx Substance Abuse - quit drinking a 6 pack a day last month. - Surgical History Surgery Procedure, Year, and Place: CARDIAC STENT =2007. right rotator cuff. Right leg Hx Anesthesia Reactions: No - Immunization History Date of Tetanus Vaccine: unk Date of Influenza Vaccine: unk Infectious Disease History: No Infectious Disease History: Reports: Hx Shingles Denies: Hx Clostridium Difficile, Hx Hepatitis, Hx Human Immunodeficiency Virus (HIV), Hx of Known/Suspected MRSA, Hx Tuberculosis, Hx Known/Suspected VRE , Hx Known/Suspected VRSA, History Other Infectious Disease, Traveled Outside the [place] in Last 30 Days - Family History Known Family History: Positive: Hypertension - Social History Alcohol Use: None Alcohol Amount: pt states he stopped 04/13/18 Hx Substance Use: No Substance Use Type: Reports: None Hx Tobacco Use: No Smoking Status (MU): Never Smoked Tobacco Have You Smoked in the Last Year: No Review of Systems Positive: Chest Pain Positive: Abdominal Pain, Diarrhea All Other Systems Reviewed And Are Negative: Yes Physical Exam - Summary Physical Exam Summary: Appearance: The patient is well-nourished in no acute distress and in no acute pain. Skin: The skin is warm and dry and skin color reflects adequate perfusion. HEENT: The head is normocephalic and atraumatic. The pupils are equal and reactive. The conjunctivae are clear and without drainage. Nares are patent and without drainage. Mouth reveals moist mucous membranes and the throat is without erythema and exudate. The external ears are intact. The ear canals are patent and without drainage. The tympanic membranes are intact. Neck: The neck is supple with full range of motion and non-tender. There are no carotid bruits. There is no neck vein distension. Respiratory: Chest is non-tender. Lungs are clear to auscultation and breath sounds are symmetrical and equal. Cardiovascular: Heart is regular rate and rhythm. There is no murmur or rub auscultated. There is no peripheral edema and pulses are symmetrical and equal. Abdomen: The abdomen is soft and mild diffuse tenderness. There are normal bowel sounds heard in all four quadrants and there is no organomegaly palpated. Musculoskeletal: There is no back tenderness noted. Extremities are non-tender with full range of motion. There is good capillary refill. There is no peripheral edema or calf tenderness elicited. Neurological: Patient is alert and oriented to person, place and time. The patient has symmetrical motor strength in all four extremities. Cranial nerves are grossly intact. Deep tendon reflexes are symmetrical and equal in all four extremities. Psychiatric: The patient has an appropriate affect and does not exhibit any anxiety or depression. Triage Information Reviewed: Yes Vital Signs On Initial Exam: Initial Vitals Temp Pulse Resp BP Pulse Ox 97.0 F 62 14 148/79 98 12/08/18 12:45 12/08/18 12:45 12/08/18 12:45 12/08/18 12:45 12/08/18 12:45 Vital Signs Reviewed: Yes Diagnostics - Vital Signs Vital Signs Temp Pulse Resp BP Pulse Ox 12/08/18 12:45 97.0 F 62 14 148/79 98 - Laboratory Result Diagrams: 12/08/18 13:18 12/08/18 13:18 Lab Statement: Any lab studies that have been ordered have been reviewed, and results considered in the medical decision making process. Re-Evaluation - Re-Evaluation First Eval Re-Evaluation Time: 15:41 Comment: Patient is constipated. GIGU Course/Dx - Course Course Of Treatment: Mr. Solomon presented with gastroenteritis type symptoms. He was nontoxic in appearance and an IV was established and he was given fluid rehydration. Labs were unremarkable and he was unable to produce a urine here over a 4 hour observation. This is likely a self-limiting phenomenon and he is already probably getting better. I recommended symptomatic treatment. - Diagnoses Provider Diagnoses: Gastroenteritis Discharge - Sign-Out/Discharge Documenting (check all that apply): Patient Departure - Discharge Patient Received Moderate/Deep Sedation with Procedure: No - Discharge Plan Condition: Stable Disposition: HOME Patient Education Materials: Gastroenteritis (ED) Referrals: Corey Garay MD [Primary Care Provider] - 2 Days Additional Instructions: Return to ED with any new or worsening symptoms. - Billing Disposition and Condition Condition: STABLE Disposition: Home - Attestation Statements Document Initiated by Scribe: Yes Documenting Scribe: Jose Jorge Provider For Whom Adithya is Documenting (Include Credential): Kane Polk MD Scribe Attestation: Jose Goode, scribed for Kane Polk MD on 12/08/18 at 1745. Scribe Documentation Reviewed: Yes Provider Attestation: The documentation as recorded by the madelineibJose payne accurately reflects the service I personally performed and the decisions made by me, aKne Polk MD Status of Scribe Document: Viewed
[2018-12-08 13:26] LABS: ABS Basophils 0.1 10^3/ul (0-0.2); ABS Eosinophils 0.1 10^3/ul (0-0.6); ABS Lymphocytes 1.2 10^3/ul (1.0-4.8); ABS Monocytes 0.5 10^3/ul (0-0.8); ABS Neutrophils 5.9 10^3/ul (1.5-7.7); ABS Nucleated RBC 0 10^3/ul; Eosinophil % 1.6 %; Hematocrit 40 % (36-46); Hemoglobin 13.4 g/dL (14.0-18.0); Lymphocyte % 15.3 %; Mean Corpuscular HGB Conc 34 g/dL (31-36); Mean Corpuscular Hemoglobin 28 pg (27-31); Mean Corpuscular Volume 84 fL (80-94); Mean Platelet Volume 8.6 fL (7.4-10.4); Nucleated Red Blood Cells % 0; Platelet Count 260 10^3/uL (150-450); Red Blood Count 4.79 10^6 /uL (4.18-5.48); Red Cell Distribution Width 15 % (10.5-15); White Blood Count 7.8 10^3/uL (3.5-10.8)
[2018-12-08 13:45] LABS: Albumin 3.8 g/dL (3.2-5.2); Albumin/Globulin Ratio 1.5 (1-3); BUN/Creatinine Ratio 18.8 (8-20); C Reactive Protein 5.67 mg/L (<8.01); EGFR African American 132.8 (>60); EGFR Non-African American 109.8 (>60); Globulin 2.5 g/dL (2-4); Potassium 3.8 mmol/L (3.5-5.0); Total Bilirubin 0.7 mg/dL (0.2-1.0); Total Protein 6.3 g/dL (6.4-8.9)
[2018-12-08 14:10] LABS: Urine Appearance Clear; Urine Bacteria Absent (Absent); Urine Bilirubin Negative (Negative); Urine Blood 1+ (Negative); Urine Color Yellow; Urine Glucose Negative (Negative); Urine Ketones Negative (Negative); Urine Nitrite Negative (Negative); Urine Protein Negative (Negative); Urine Red Blood Cell Absent (Absent); Urine Specific Gravity 1.013 (1.010-1.030); Urine Squamous Epithelial Cell Present (Absent); Urine Urobilinogen Negative (Negative); Urine White Blood Cell Trace(0-5/hpf) (Absent)
[2018-12-08 17:20] VITALS: BP 160/90
== END 2018-12-08 17:20 | disposition home or self-care (01) ==
LOC: ED 12:42
DX: K52.9 Noninfective gastroenteritis and colitis, unspecified (principal); D64.9 Anemia, unspecified; I25.10 Atherosclerotic heart disease of native coronary artery without angina pectoris; E78.00 Pure hypercholesterolemia, unspecified; I10 Essential (primary) hypertension; I34.0 Nonrheumatic mitral (valve) insufficiency; J44.9 Chronic obstructive pulmonary disease, unspecified; K21.9 Gastro-esophageal reflux disease without esophagitis; R10.32 Left lower quadrant pain; E78.5 Hyperlipidemia, unspecified; I51.9 Heart disease, unspecified; Z95.5 Presence of coronary angioplasty implant and graft; N40.0 Benign prostatic hyperplasia without lower urinary tract symptoms; Z88.8 Allergy status to other drugs, medicaments and biological substances; Z91.048 Other nonmedicinal substance allergy status
CPT/HCPCS: 36415; 80053; 81003; 81015; 83605; 83690; 85025; 86140; 87086; 96360; 96361; 99282

== ENCOUNTER 2019-01-19 16:01 | Emergency (ER) | payer MEDICARE ==
[2019-01-19 16:22] VITALS: BP 137/84
--- NOTE | 2019-01-19 17:59 | UC ---
Hand/Wrist HPI - HPI Summary HPI Summary: awoke last night with left wrist pain--no known injury wrist is tender red and warm painful rom in left wrist pulses + brisk cap refill - History Of Current Complaint Chief Complaint: UCUpperExtremity Stated Complaint: HAND PAIN Time Seen by Provider: 01/19/19 16:39 Hx Obtained From: Patient ?: No Mechanism Of Injury: none Onset/Duration: Sudden Onset, Lasting Days - 1 Pain Intensity: 0 Pain Scale Used: 0-10 Numeric Character Of Pain: Aching, Throbbing Aggravating Factor(s): Lifting Alleviating Factor(s): OTC Meds - tylenol Associated Signs And Symptoms: Positive: Swelling, Redness Related History: Dominant Hand Right - Allergies/Home Medications Allergies/Adverse Reactions: Allergies Allergy/AdvReac Type Severity Reaction Status Date / Time bovine lipid extract Allergy Intermediate Itching Verified 01/19/19 16:11 surfactant cow dander Allergy Intermediate Itching Verified 01/19/19 16:11 dust Allergy Unknown Uncoded 01/19/19 16:11 Reaction Details PMH/Surg Hx/FS Hx/Imm Hx Previously Healthy: No Endocrine History: Dyslipidemia Cardiovascular History: Hypertension Respiratory History: COPD - Surgical History Surgical History: Yes Surgery Procedure, Year, and Place: CARDIAC STENT =2007. right rotator cuff. Right leg - Family History Known Family History: Positive: Hypertension - Social History Occupation: Retired Lives: With Family Alcohol Use: None Alcohol Amount: pt states he stopped 04/13/18 Substance Use Type: None Smoking Status (MU): Never Smoked Tobacco Have You Smoked in the Last Year: No Household Exposure Type: Cigars - Immunization History Most Recent Influenza Vaccination: fall 2015 Most Recent Pneumonia Vaccination: never Review of Systems All Other Systems Reviewed And Are Negative: Yes Constitutional: Positive: Negative Skin: Positive: Other - left wrist erythema Eyes: Positive: Negative ENT: Positive: Negative Respiratory: Positive: Negative Cardiovascular: Positive: Negative Gastrointestinal: Positive: Negative Genitourinary: Positive: Negative Motor: Positive: Decreased ROM - left wrist Neurovascular: Positive: Negative Musculoskeletal: Positive: Arthralgia - left wrist Neurological: Positive: Negative Psychological: Positive: Negative Is Patient Immunocompromised?: No Physical Exam Triage Information Reviewed: Yes Appearance: Well-Appearing, No Pain Distress, Well-Nourished Vital Signs: Initial Vital Signs Temp 99.2 F 01/19/19 16:13 Pulse 73 01/19/19 16:13 Resp 18 01/19/19 16:13 BP 137/84 01/19/19 16:13 Pulse Ox 96 01/19/19 16:13 Vital Signs Reviewed: Yes Eye Exam: Normal Eyes: Positive: Conjunctiva Clear ENT Exam: Normal ENT: Positive: Normal ENT inspection, Hearing grossly normal. Negative: Trismus , Muffled voice, Hoarse voice Dental Exam: Normal Neck exam: Normal Neck: Positive: Supple, Nontender Respiratory Exam: Normal Respiratory: Positive: Chest non-tender, No respiratory distress, No accessory muscle use Cardiovascular Exam: Normal Cardiovascular: Positive: RRR, Pulses Normal, Brisk Capillary Refill Musculoskeletal: Positive: Strength Limited @ - left wrist, ROM Limited @ - left wrist, Edema @ - left wrist Neurological Exam: Normal Neurological: Positive: Alert, Muscle Tone Normal Psychological Exam: Normal Skin Exam: Normal Diagnostics - Radiology No standard instances Radiology Interpretation Completed By: Radiologist - no acute changes Hand/Wrist Course/Dx - Course Course Of Treatment: labs, tylenol, cockup splint follow with pcp - Differential Dx/Diagnosis Provider Diagnosis: Left wrist tendonitis Discharge - Sign-Out/Discharge Documenting (check all that apply): Patient Departure All imaging exams completed and their final reports reviewed: Yes - Discharge Plan Condition: Stable Disposition: HOME Patient Education Materials: Acetaminophen (By mouth), Arthralgia (ED), Swollen Joint (ED) Referrals: Corey Garay MD [Primary Care Provider] - 3 Days Additional Instructions: We have drown labs to help determine the exact cause of your joint pain---we will call you with any change in treatment --Follow with Dr. Garay in 3-4 days - Billing Disposition and Condition Condition: STABLE Disposition: Home
[2019-01-20 14:12] LABS: ABS Basophils 0.1 10^3/ul (0-0.2); ABS Eosinophils 0.3 10^3/ul (0-0.6); ABS Lymphocytes 1.9 10^3/ul (1.0-4.8); ABS Monocytes 0.9 10^3/ul (0-0.8); ABS Neutrophils 4.4 10^3/ul (1.5-7.7); Eosinophil % 4.2 %; Hematocrit 42 % (42-52); Hemoglobin 13.9 g/dL (14.0-18.0); Lymphocyte % 24.5 %; Mean Corpuscular HGB Conc 33 g/dL (31-36); Mean Corpuscular Hemoglobin 28 pg (27-31); Mean Corpuscular Volume 85 fL (80-94); Mean Platelet Volume 9.7 fL (7.4-10.4); Nucleated Red Blood Cells % 0.1; Platelet Count 315 10^3/uL (150-450); Red Blood Count 4.95 10^6 /uL (4.18-5.48); Red Cell Distribution Width 15 % (10.5-15); White Blood Count 7.6 10^3/uL (3.5-10.8)
[2019-01-20 14:23] LABS: Albumin 4.3 g/dL (3.2-5.2); Calcium 9.2 mg/dL (8.6-10.3); Potassium 4.4 mmol/L (3.5-5.0); Total Bilirubin 0.6 mg/dL (0.2-1.0)
[2019-01-20 14:29] LABS: Albumin/Globulin Ratio 1.7 (1-3); BUN/Creatinine Ratio 17.8 (8-20); C Reactive Protein 6.49 mg/L (<8.01); EGFR African American 124.5 (>60); EGFR Non-African American 102.9 (>60); Globulin 2.6 g/dL (2-4); Total Protein 6.9 g/dL (6.4-8.9); Uric Acid 7.3 mg/dL (4.4-7.6)
[2019-01-23 23:55] LABS: B garinii/B afzelii PCR Negative (Negative); B mayonii PCR Negative (Negative)
== END 2019-01-19 17:48 | disposition home or self-care (01) ==
LOC: UCEAST 16:01
DX: M77.9 Enthesopathy, unspecified (principal)
CPT/HCPCS: 36415; 80053; 84550; 85025; 86140; 87476; 87798; 99213; G0463

== ENCOUNTER 2019-10-24 17:08 | Emergency (ER) | payer MEDICARE ==
--- OUTSIDE RECORDS SUMMARY | 2019-10-24 17:14 | XMS REPORT | Continuity of Care Document ---
:1935 External Reference #:[id number] Author Name Lizy Coleman MD (transmitted by agent of provider Cece Costello) Address [address], [address] [place] [address] Care Team Providers Name Role Phone Manpreet Andres MD - Urology Care Team Information Thread Reeler [phone] Mary Jane Brown MD - Dermatology Care Team Information Thread Reeler Miguelito Gomez MD - Cardiovascular Care Team Information Thread Reeler Disease Lizy Coleman MD - Pulmonary Care Team Information Thread Reeler Disease Khang Castelan MD - Plastic and Care Team Information Thread Reeler [phone] Reconstructive Surgery Magdiel Casillas DPM - Foot Surgery Care Team Information Thread Reeler [phone] Problems Active Problems Provider Date [facility] Gilberto Whitfield M.D.,FACP Onset: 02/13/2013 Asthma without status asthmaticus Dena Garay M.D. Onset: 08/02/2011 Benign essential hypertension Dena Garay M.D. Onset: 08/02/2011 Vesicular eczema of hands and/or feet Dena Garay M.D. Onset: 2011 Anemia Dena Garay M.D. Onset: 02/28/2012 Mixed hyperlipidemia Dena Garay M.D. Onset: 02/28/2012 Coronary arteriosclerosis Ronna Miller, N.PEdenilson Onset: 03/28/2012 Nondependent alcohol abuse in Gilberto Whitfield M.D.,FACP Onset: 02/13/2013 remission Gastroesophageal reflux disease Dena Garay M.D. Onset: 05/27/2014 Benign localized hyperplasia of Dena Garay M.D. Onset: 05/27/2014 prostate Neck pain Jose Sheehan M.D. Onset: 01/06/2016 Pain in cervical spine Allison Gomez M.D. Onset: 05/10/2016 Carpal tunnel syndrome Allison Gomez M.D. Onset: 05/10/2016 Cervical radiculopathy Allison Gomez M.D. Onset: 05/10/2016 Benign prostatic hypertrophy without Dena Garay M.D. Onset: 01/10/2017 outflow obstruction Simple chronic bronchitis Lizy Coleman MD Onset: 01/13/2017 Disturbance in sleep behavior Lizy Coleman MD Onset: 01/13/2017 Localized, primary osteoarthritis of Ken Collier MD Onset: 01/20/2017 the shoulder region Full thickness rotator cuff tear Ken Collier MD Onset: 01/20/2017 Social History Type Date Description Comments Sex Unknown Tobacco Use Start: Unknown Never Smoked Cigarettes ETOH Use consumes 2-3 beers per day Tobacco Use Start: Unknown Patient has never smoked Recreational Drug Use Denies Drug Use Smoking Status Reviewed: 09/02/19 Patient has never smoked 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 Allergies, Adverse Reactions, Alerts Active Allergies Reaction Severity Comments Date NKDA 07/31/2007 cow hair skin desquamation hands 09/17/2007 Dust 06/22/2009 Dog Hair 2015 Medications Active Medications SIG Qnty Indications Ordering Date Provider Betho Ellipjennifer 1 puff inhaled 28units Lizy Coleman, 07/01/2019 daily 100-25mcg/Inh Aerosol Ramelteon 1 tab at bedtime 30tabs G47.00 Lizy Coleman, 06/13/2019 8mg Tablets Prednisone 2 tabs by mouth 28tabs Lizy Coleman, 04/24/2019 10mg per day for one MD Tablets week, then 1 by mouth per day for 2 weeks Meloxicam take one tab once 10tabs M54.41 Dena Montemayor/02/2019 7.5mg or twice daily as Ernesto Garay Tablets needed for pain, avoid other nsaids Symbicort 1 puff twice a day 30.6gm Lizy Coleman, 06/12/2018 160-4.5mcg/Act Aerosol Albuterol Sulfate 1 vial via 90ml J20.9 Dena EEdenilson 06/20/2017 nebulizer 4 times Ernesto Garay (2.5mg/3ML) 0.083% daily as needed Nebulizer Ventolin HFA 2 puffs by mouth 8gm Dena Hays 12/26/2016 four times a day Ernesto Garay 108(90Base) mcg/Act as needed Aerosol Nitrostat one sl q5min up to 25tabs Miguelito Silva 10/20/2016 0.4mg 3 doses as needed Ernesto Gomez Tablets Sub Blood Pressure for upper arm. 1units I10 Miguelito Silva 05/19/2016 Monitor Auto dispense 1 as Ernesto Gomez Inflate directed Misc Amlodipine Besylate 1 by mouth every 90tabs I10 Miguelito Silva 05/04/2016 day Ernesto Gomez 5mg Tablets Lisinopril 1 by mouth every 90tabs Miguelito Silva 2015 5mg day Ernesto Gomez Tablets Metoprolol Succinate take one tablet by 90tabs Miguelito Silva 03/14/2012 ER mouth every day Ernesto Gomez 25mg Tablets ER 24HR Aspir-81 1 po qd Miguelito Silva 10/22/2009 [address]ts [address] Take One Tablet By 90tabs Dena Hays 09/12/2007 10mg Mouth Every Ernesto Garay Tablets Evening Tamsulosin HCL Take One Capsule 90caps Dena E. 0.4mg By Mouth Every Day Ernesto Garay Capsules Lipitor Take One Tablet By 90tabs Dena EEdenilson 80mg Tablets Mouth AT Bedtime Ernesto Garay Spiriva Respimat 1 inhalation per Lizy Coleman, day 1.25mcg/Act Aerosol History Medications Prednisone 2 tabs daily for 21units Lizy Coleman MD 04/23/2019 - 10mg (21) 7 days, 1 tab 04/24/2019 TBPK daily for 2 weeks Medications Administered in Office Medication SIG Qnty Indications Ordering Provider Date Depomedrol 40MG Ortega Zelaya MD 08/27/2019 Injection Technetium TC 99M Patrice Taveras M.D., 08/10/2015 Tetrofosmin, Per Unit Dose FACC, FASNC Up To 40 Millicuries Injection Technetium TC 99M Miguelito Gomez M.D. 08/10/2015 Tetrofosmin, Per Unit Dose Up To 40 Millicuries Injection Depomedrol 80MG Anya Gaxiola M.D. 09/26/2013 Injection Immunizations CPT Code Status Date Vaccine Lot # [id number] Given 07/05/2019 Fluzone High Dose 87616 Given 07/24/2017 Influenza Virus Vaccine, Quadrivalent, Split, [id number] Preservative Free 72590 Given 07/01/2016 Influ Virus Vaccine, Quadrivalent, Split Virus, [place] [id number] [place] [address] Given 09/05/2014 Pneumococcal Conjugate Vaccine 13 Valent For [id number] Intramuscular Use 71783 Given 05/27/2014 Influenza Virus Vaccine, Quadrivalent, Split, [id number] Preservative Free 28507 Given 06/19/2013 Flu Vaccine Split Virus Preservative Free For Indiv 3Yr Older 63111 Given 06/19/2013 Flu Vaccine Split Virus Preservative Free For [id number] Indiv 3Yr Older Q2037 Given 07/16/2012 Fluvirin Im 3Yrs And Older [id number] Q2038 Given 05/11/2012 Fluzone Vaccine [id number] 06741 Given 04/21/2012 Tdap - Tetanus/Diptheria/Acellular Pertussis [id number] 43849 Given 10/11/2006 Td (History By Patient) 61797 Given 07/06/2000 Pneumonia Vaccine 56057 Given 07/06/2000 Td (History By Patient) Vital Signs Date Vital Result Comment 09/02/2019 10:34am Height 64 inches 5'4" Weight 164.00 lb Heart Rate 56 /min BP Systolic 138 mmHg BP Diastolic 74 mmHg O2 % BldC Oximetry 96 % BMI (Body Mass Index) 28.1 kg/m2 08/27/2019 10:51am Height 64 inches 5'4" Weight 153.00 lb Heart Rate 81 /min BP Systolic 142 mmHg BP Diastolic 78 mmHg Respiratory Rate 18 /min Pain Level 5 O2 % BldC Oximetry 98 % BMI (Body Mass Index) 26.3 kg/m2 Results Test Acquired Date Facility Test Result H/L Range Note Lipid Profile 03/14/2019 [facility] Triglycerides 79 mg/dL 1 (Trig/Chol/HDL) [address] [place] [address] [phone] Cholesterol 143 mg/dL 2 HDL Cholesterol 58.1 mg/dL 3 LDL Cholesterol 69 mg/dL 4 Laboratory test 03/14/2019 [facility] Creatine 68 U/L Normal 10-223 [address] Kin[employer](CK) [place] [address] [phone] 1 Desirable: <150 Borderline High: 150-199 High: 200-499 Very High: >500 2 Desirable: <200 Borderline High: 200-239 High: >239 3 Low: <40 Desirable: 40-60 High: >60 4 Desirable: <100 Near Optimal: 100-129 Borderline High: 130-159 High: 160-189 Very High: >189 5 FASTING Copy Result to: DENA GARAY ([id number]) Procedures Date Code Description Status 08/27/2019 51008 Inject/Drain Joint/Bursa Major W/O US Completed 03/12/2019 14690 EKG Tracing & Interpretation Completed 03/01/2010 50574956 Colonoscopy Completed 09/16/2009 [id number] Colonoscopy Completed 11/22/2006 [id number] Colonoscopy Completed 01/08/2003 23724700 Colonoscopy Completed Medical Devices Description No Information Available Encounters Type Date Location Provider Dx Diagnosis Office Visit 08/01/2019 [facility] Ortega F M25.512 Pain in left 9:30a at Remigio Zelaya MD shoulder S46.012A Strain of musc/tend the rotator cuff of left shoulder, init Office Visit 06/13/2019 8:45a [facility]y J44.9 [facility] obstructive Flooring Machine Feeder pulmonary disease, unspecified J45.909 Unspecified asthma, uncomplicated G47.00 Insomnia, unspecified Office Visit 03/12/2019 10:20a [facility] Miguelito Silva J44.9 Chronic Ernesto Gomez obstructive pulmonary disease, unspecified I73.9 Peripheral vascular disease, unspecified J44.1 Chronic obstructive pulmonary disease w (acute) exacerbation E78.00 Pure hypercholesterolemia, unspecified I10 Essential (primary) hypertension I25.10 Athscl heart disease of [place] coronary artery w/o ang pctrs Assessments Date Code Description Provider 09/02/2019 J45.901 Unspecified asthma with (acute) Lizy Coleman MD exacerbation 09/02/2019 J44.9 Chronic obstructive pulmonary disease, Lizy Coleman MD unspecified 08/27/2019 S46.012D Strain of muscle(s) and tendon(s) of the Ortega Zelaya MD rotator cuff of left shoulder, subsequent encounter 08/01/2019 M25.512 Pain in left shoulder Ortega Zelaya MD 08/01/2019 S46.012A Strain of muscle(s) and tendon(s) of the Ortega Zelaya MD rotator cuff of left shoulder, initial encounter 06/13/2019 J44.9 Chronic obstructive pulmonary disease, Lizy Coleman MD unspecified 06/13/2019 J45.909 Unspecified asthma, uncomplicated Lizy Coleman MD 06/13/2019 G47.00 Insomnia, unspecified Lizy Coleman MD 03/12/2019 J44.9 Chronic obstructive pulmonary disease, Miguelito Goemz M.D. unspecified 03/12/2019 I73.9 Peripheral vascular disease, unspecified Miguelito Gomez M.D. 03/12/2019 J44.1 Chronic obstructive pulmonary disease Miguelito Gomez M.D. with (acute) exacerbat 03/12/2019 E78.00 Hypercholesterolemia Miguelito Gomez M.D. 03/12/2019 I10 Benign hypertension Miguelito Gomez M.D. 03/12/2019 I25.10 Coronary atherosclerosis Miguelito Gomez M.D. Plan of Treatment Future Appointment(s):10/10/2019 10:15 am - Ortega Zelaya MD at [facility]/17/2019 9:00 am - Lizy Coleman [facility]08/27/2019 - Ortega Zelaya, MDS46.012D Strain of muscle(s) and tendon(s) of the rotator cuff of left shoulder, subsequent encounterNew Therapy:Physical TherapyFollow up:Follow up: 6 weeks Functional Status Functional Condition Comment Date Status Glasses Active Mental Status Description No Information Available Referrals Refer to Reason for Referral Status Appt Date Magdiel Casillas DPM foot care Sent 05/10/2019 [address] [place] [address] [phone]
--- OUTSIDE RECORDS SUMMARY | 2019-10-24 17:14 | XMS REPORT | Continuity of Care Document ---
:1935 External Reference #:[id number] Author Name Ortega Zelaya MD (transmitted by agent of provider Renuka Coates) Address [address] [place] [id number] Care Team Providers Name Role Phone Manpreet Andres MD - Urology Care Team Information Glass Mold Repairer [phone] Mary Jane Brown MD - Dermatology Care Team Information Glass Mold Repairer Miguelito Gomez MD - Cardiovascular Care Team Information Glass Mold Repairer [phone] Disease Lizy Coleman MD - Pulmonary Care Team Information Glass Mold Repairer Disease Khang Castelan MD - Plastic and Care Team Information Glass Mold Repairer Reconstructive Surgery Magdiel Casillas DPM - Foot Surgery Care Team Information Glass Mold Repairer [phone] Problems Active Problems Provider Date [place] Gilberto Whitfield M.D.,FACP Onset: 02/13/2013 Asthma without status asthmaticus Dena Garay M.D. Onset: 08/02/2011 Benign essential hypertension Dena Garay M.D. Onset: 08/02/2011 Vesicular eczema of hands and/or feet Dena Garay M.D. Onset: 2011 Anemia Dena Garay M.D. Onset: 02/28/2012 Mixed hyperlipidemia Dena Garay M.D. Onset: 02/28/2012 Coronary arteriosclerosis Ronna Miller, N.P. 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 Allergies, Adverse Reactions, Alerts Active Allergies Reaction Severity Comments Date NKDA 07/31/2007 cow hair skin desquamation hands 09/17/2007 Dust 06/22/2009 Dog Hair 2015 Medications Active Medications SIG Qnty Indications Ordering Date Provider Breo Ellipta 1 puff inhaled 28units Lizy Coleman, 07/01/2019 daily 100-25mcg/Inh Aerosol Ramelteon 1 tab at bedtime 30tabs G47.00 Lizy Coleman, 06/13/2019 8mg Tablets Prednisone 2 tabs by mouth 28tabs Lizy Coleman, 04/24/2019 10mg per day for one MD Tablets week, then 1 by mouth per day for 2 weeks Meloxicam take one tab once 10tabs M54.41 Dena Hays 02/19/2019 7.5mg or twice daily as Ernesto Garay [...] Medication SIG Qnty Indications Ordering Provider Date Technetium TC 99M Patrice Ben Taveras M.D., 08/10/2015 Tetrofosmin, Per Unit Dose FACC, FASNC Up To 40 Millicuries Injection Technetium TC 99M Miguelito Gomez M.D. 08/10/2015 Tetrofosmin, Per Unit Dose Up To 40 Millicuries Injection Depomedrol 80MG Anya Gaxiola M.D. 09/26/2013 Injection Immunizations CPT Code Status Date Vaccine Lot # [id number] Given 07/05/2019 Fluzone High Dose 02789 Given 07/24/2017 Influenza Virus Vaccine, Quadrivalent, Split, [id number] Preservative Free 07358 Given 07/01/2016 Influ Virus Vaccine, Quadrivalent, Split Virus, [place] [id number] [address] Given 09/05/2014 Pneumococcal Conjugate Vaccine 13 Valent For [id number] Intramuscular Use 21375 Given 05/27/2014 Influenza Virus Vaccine, Quadrivalent, Split, [id number] Preservative Free 59042 Given 06/19/2013 Flu Vaccine Split Virus Preservative Free For Indiv 3Yr Older 14748 Given 06/19/2013 Flu Vaccine Split Virus Preservative Free For [id number] Indiv 3Yr Older Q2037 Given 07/16/2012 Fluvirin Im 3Yrs And Older [id number] Q2038 Given 05/11/2012 Fluzone Vaccine [id number] 52581 Given 04/21/2012 Tdap - Tetanus/Diptheria/Acellular Pertussis [id number] 86069 Given 10/11/2006 Td (History By Patient) 56558 Given 07/06/2000 Pneumonia Vaccine 21383 Given 07/06/2000 Td (History By Patient) Vital Signs Date Vital Result Comment 08/27/2019 10:51am Height 64 inches 5'4" Weight 153.00 lb Heart Rate 81 /min BP Systolic 142 mmHg BP Diastolic 78 mmHg Respiratory Rate 18 /min Pain Level 5 O2 % BldC Oximetry 98 % BMI (Body Mass Index) 26.3 kg/m2 08/01/2019 10:35am Height 65 inches 5'5" Weight 160.50 lb Heart Rate 66 /min BP Systolic 128 mmHg BP Diastolic 80 mmHg Respiratory Rate 16 /min Body Temperature 97.7 F Pain Level 7 BMI (Body Mass Index) 26.7 kg/m2 Results Test Acquired Date Facility Test Result H/L Range Note Lipid Profile 03/14/2019 [facility] Triglycerides 79 mg/dL 1 (Trig/Chol/HDL) [address] [place] [address] [phone] Cholesterol 143 mg/dL 2 HDL Cholesterol 58.1 mg/dL 3 LDL Cholesterol 69 mg/dL 4 Laboratory test 03/14/2019 [facility] Creatine 68 U/L Normal 10-223 [address] Kinase(CK) [place] [address] [phone] Laboratory test 03/01/2019 [facility] PSA Diagnostic 5.594 High 0-4.0 [address] ng/[place] [address] [phone] Desirable: <150 Borderline High: 150-199 High: 200-499 Very High: >500 2 Desirable: <200 Borderline High: 200-239 High: >239 3 Low: <40 Desirable: 40-60 High: >60 4 Desirable: <100 Near Optimal: 100-129 Borderline High: 130-159 High: 160-189 Very High: >189 5 FASTING Copy Result to: DENA GARAY ([id number]) 6 Serum levels of PSA measured using the Alexis Remy DXI Hybritech immunoassay should not be interpreted as absolute evidence of the presence or absence of disease. The PSA value should be used in conjunction with other pertinent clinical diagnostic procedures. The values obtained with different assay methods or kits cannot be used interchangeably. Procedures Date Code Description Status 08/27/2019 55546 Inject/Drain Joint/Bursa Major W/O US Completed 03/12/2019 61073 EKG Tracing & Interpretation Completed 03/01/2010 [id number] Colonoscopy Completed 09/16/2009 [id number] Colonoscopy Completed 11/22/2006 [id number] Colonoscopy Completed 01/08/2003 [id number] Colonoscopy Completed Medical Devices Description No Information Available Encounters Type Date Location Provider Dx Diagnosis Office Visit 08/01/2019 [facility] Ortega Steve M25.512 Pain in left 9:30a at Remigio Zelaya MD shoulder S46.012A Strain of musc/tend the rotator cuff of left shoulder, init Office Visit 06/13/2019 8:45a Pulmonology And Lizy J44.9 [facility] obstructive Confectionery Maker pulmonary disease, unspecified J45.909 Unspecified asthma, uncomplicated G47.00 Insomnia, unspecified Office Visit 03/12/2019 10:20a [facility] Miguelito Diaz44.9 Chronic Ernesto Gomez obstructive pulmonary disease, unspecified I73.9 Peripheral vascular disease, unspecified J44.1 Chronic obstructive pulmonary disease w (acute) exacerbation E78.00 Pure hypercholesterolemia, unspecified I10 Essential (primary) hypertension I25.10 Athscl heart disease of [place] coronary artery w/o ang pctrs Assessments Date Code Description Provider 08/27/2019 S46.012D Strain of muscle(s) and tendon(s) [...] 03/12/2019 J44.9 Chronic obstructive pulmonary disease, Miguelito Gomez M.D. unspecified 03/12/2019 I73.9 Peripheral vascular disease, unspecified Miguelito Gomez M.D. 03/12/2019 J44.1 Chronic obstructive pulmonary disease Miguelito Gomez M.D. with (acute) exacerbat 03/12/2019 E78.00 Hypercholesterolemia Miguelito Gomez M.D. 03/12/2019 I10 Benign hypertension Miguelito Gomez M.D. 03/12/2019 I25.10 Coronary atherosclerosis Miguelito Gomez M.D. Plan of Treatment Future Appointment(s):10/10/2019 10:15 am - Ortega Zelaya MD at [facility] at [id number]/17/2019 9:00 am - Lizy Coleman MD at [...] DPM foot care Sent 05/10/[address] [place] [address] [phone]
[2019-10-24] MEDS ORDERED: Aspirin 81 mg CHEW TAB* 81 MG TAB.CHEW PO ONE (17:16)
--- NOTE | 2019-10-24 17:19 | UC ---
Cardiac HPI - HPI Summary HPI Summary: 84-year-old male comes in with a chief complaint of chest pain. A half hour ago had midsternal chest pain radiating to the left neck. He always has shortness of breath due to COPD. Started when he was moving some brush. No nausea and no sweating. Patient has had a cardiac history. Pain is better with rest. - History of Current Complaint Stated Complaint: CHEST PAIN Time Seen by Provider: 10/24/19 17:14 - Allergy/Home Medications Allergies/Adverse Reactions: Allergies Allergy/AdvReac Type Severity Reaction Status Date / Time bovine lipid extract Allergy Intermediate Itching Verified 08/06/19 15:54 surfactant cow dander Allergy Intermediate Itching Verified 08/06/19 15:54 dust Allergy Unknown Uncoded 08/06/19 15:54 Reaction Details Home Medications: Home Medications Amlodipine Besylate [Norvasc 5 mg tab] 5 mg PO DAILY 01/21/17 [History Confirmed 12/08/18] Aspirin [Aspirin 81 MG TAB] 81 mg PO DAILY 01/21/17 [History Confirmed 12/08/18] Atorvastatin* [Lipitor 80 MG*] 80 mg PO QPM 01/21/17 [History Confirmed 12/08/18 ] Metoprolol Succinate [Toprol Xl] 25 mg PO DAILY 01/21/17 [History Confirmed ] Montelukast Sodium TAB* [Singulair 10 MG TAB*] 10 mg PO DAILY 01/21/17 [History Confirmed 12/08/18] Tamsulosin HCl [Flomax] 0.4 mg PO DAILY 01/21/17 [History Confirmed 12/08/18] Spacer/Holding Chamber (NF) [Easivent CHAMBER (NF)] 1 applic INH QID 30 Days #1 device 04/07/18 [Rx Confirmed 12/08/18] Acetaminophen TAB* [Tylenol TAB*] 650 mg PO Q6H PRN tab 04/18/18 [Rx Confirmed 12/08/18] Albuterol 2.5MG/3ML (0.083%)* [Ventolin 2.5 MG/3 ML NEB.NEIDA*] 2.5 mg INH RT.Q6HR -WHILE AWAKE PRN neb.soln 04/18/18 [Rx Confirmed 12/08/18] Albuterol HFA INHALER* [Ventolin HFA Inhaler*] 2 puff INH Q4H PRN 05/18/18 [ History Confirmed 12/08/18] Nitroglycerin TAB 0.4 MG* 0.4 mg SL Q5M PRN 05/18/18 [History Confirmed 12/08/18 ] Tiotropium [place] [Spiriva Respimat] 1 puff INH BID 05/18/18 [History Confirmed 12/08/18] PMH/Surg Hx/FS Hx/Imm Hx Previously Healthy: Yes Endocrine History: Dyslipidemia Cardiovascular History: Cardiac Disease, Hypertension Respiratory History: COPD - Surgical History Surgical History: Yes Surgery Procedure, Year, and Place: CARDIAC STENT =2007. right rotator cuff. Right leg - Family History Known Family History: Positive: Hypertension - Social History Alcohol Use: None Alcohol Amount: pt states he stopped 04/13/18 Substance Use Type: None Smoking Status (MU): Never Smoked Tobacco Have You Smoked in the Last Year: No Household Exposure Type: Cigars - Immunization History Most Recent Influenza Vaccination: fall 2015 Most Recent Pneumonia Vaccination: never Review of Systems All Other Systems Reviewed And Are Negative: Yes Constitutional: Positive: Other - SEE HPI Skin: Positive: Negative Eyes: Positive: Negative ENT: Positive: Negative Respiratory: Positive: Shortness Of Breath Cardiovascular: Positive: Chest Pain Gastrointestinal: Positive: Negative Motor: Positive: Negative Neurovascular: Positive: Negative Musculoskeletal: Positive: Negative Neurological/Mental Status: Positive: Negative Psychological: Positive: Negative Is Patient Immunocompromised?: No Physical Exam Triage Information Reviewed: Yes Appearance: Well-Appearing, No Pain Distress, Well-Nourished Vital Signs Reviewed: Yes Eye Exam: Normal Eyes: Positive: Conjunctiva Clear Neck: Positive: Supple, Nontender Respiratory: Positive: Lungs clear, Normal breath sounds, No respiratory distress Cardiovascular: Positive: RRR Abdomen Description: Positive: Nontender, Soft Musculoskeletal: Positive: Strength Intact, ROM Intact, No Edema - NO CALF TENDERNESS Neurological: Positive: Alert Psychological: Positive: Age Appropriate Behavior Skin Exam: Normal Diagnostics - EKG Cardiac Rate: NL - AT 1709 Cardiac Rhythm: Sinus: Normal - 76BPM Ectopy: None ST Segment: Non-Specific EKG Comparison: Other - RBBB AND LAFB - Assessment/Plan Course Of Treatment: Discussed EKG with the patient. 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 Is difficult to discern whether or not there is any ST elevation. Patient is awake alert appropriate in the clinic. IV was placed patient was given aspirin 324 mg by mouth and transported to the hospital by ambulance. - Clinical Impression Provider Diagnosis: Chest pain Discharge ED - Sign-Out/Discharge Documenting (check all that apply): Patient Departure All imaging exams completed and their final reports reviewed: No Studies - Discharge Plan Condition: Stable Disposition: TRANS HIGHER LVL OF CARE FAC Referrals: Corey Garay MD [Primary Care Provider] - - Billing Disposition and Condition Condition: STABLE Disposition: Trans Higher Lvl of Care Fac
[2019-10-24 17:27] VITALS: BP 148/82
== END 2019-10-24 17:30 | disposition short-term general hospital (02) ==
LOC: UCEAST 17:08
DX: R07.89 Other chest pain (principal); I10 Essential (primary) hypertension; J44.9 Chronic obstructive pulmonary disease, unspecified; E78.5 Hyperlipidemia, unspecified; Z91.09 Other allergy status, other than to drugs and biological substances; Z79.82 Long term (current) use of aspirin
CPT/HCPCS: 93005; 99213; A9270-GY; G0463

== ENCOUNTER 2019-10-24 17:57 | Observation (INO) | payer MEDICARE ==
--- NOTE | 2019-10-24 18:13 | ED ---
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 The chest pain lasted for 10-15 minutes before resolving. He reports feeling "foggy" during the chest pain , but this has since resolved. He went to [facility] and sent to [facility] for further assessment. Currently, he notes shortness of breath which is not new and unchanged from baseline. Patient denies dizziness, diaphoresis, nausea, vomiting, or bilateral LE edema. No aggravating factor is reported. PMHx is significant for HTN, HLD, COPD, and prostate problem. PSHx is significant for cardiac stent placement in 2007. Last cardiac stress test was less than 5 years ago and had unremarkable findings. 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 He takes 81 mg aspirin daily and was given 3 doses of 81 mg aspirin at [facility]. Dr. Lizy Coleman is his registration scheduling specialist and he also follows up with a aircraft engine installer. 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 He is allergic to cow hair. - History of Current Complaint Chief Complaint: EDChestPainROMI Time Seen by Provider: 10/24/19 18:08 Hx Obtained From: Patient Onset/Duration: Atraumatic, Still Present Timing: Intermittent, Lasting Minutes - 10-15 minutes Initial Severity: Moderate Current Severity: Moderate Pain Scale Used: 0-10 Numeric Chest Pain Location: Right Anterior Chest Pain Radiates: No Character: Sharp/Stabbing Aggravating Factor(s): Nothing Alleviating Factor(s): Spontaneous Resolution Associated Signs and Symptoms: Positive: Chest Pain, Shortness of Breath - Unchanged from baseline. Negative: Dizziness, Diaphoresis, Nausea, Vomiting, Edema - Bilateral LE - Additional Pertinent History Primary Care Physician: KYLE - Allergy/Home Medications Allergies/Adverse Reactions: Allergies Allergy/AdvReac Type Severity Reaction Status Date / Time bovine lipid extract Allergy Intermediate Itching Verified 10/24/19 18:10 surfactant cow dander Allergy Intermediate Itching Verified 10/24/19 18:10 dust Allergy Unknown Uncoded 10/24/19 17:27 Reaction Details Home Medications: Home Medications Amlodipine Besylate [Norvasc 5 mg tab] 5 mg PO DAILY 01/21/17 [History Confirmed 10/24/19] Aspirin [Aspirin 81 MG TAB] 81 mg PO DAILY 01/21/17 [History Confirmed 10/24/19] Atorvastatin* [Lipitor 80 MG*] 80 mg PO QPM 01/21/17 [History Confirmed 10/24/19 ] Metoprolol Succinate [Toprol Xl] 25 mg PO DAILY 01/21/17 [History Confirmed 01/07] Montelukast Sodium TAB* [Singulair 10 MG TAB*] 10 mg PO DAILY 01/21/17 [History Confirmed 10/24/19] Tamsulosin HCl [Flomax] 0.4 mg PO DAILY 01/21/17 [History Confirmed 10/24/19] Spacer/Holding Chamber (NF) [Easivent CHAMBER (NF)] 1 applic INH QID 30 Days #1 device 04/07/18 [Rx Confirmed 10/24/19] Acetaminophen TAB* [Tylenol TAB*] 650 mg PO Q6H PRN tab 04/18/18 [Rx Confirmed 10/24/19] Albuterol 2.5MG/3ML (0.083%)* [Ventolin 2.5 MG/3 ML NEB.NEIDA*] 2.5 mg INH RT.Q6HR -WHILE AWAKE PRN neb.soln 04/18/18 [Rx Confirmed 10/24/19] Albuterol HFA INHALER* [Ventolin HFA Inhaler*] 2 puff INH Q4H PRN 05/18/18 [ History Confirmed 10/24/19] Nitroglycerin TAB 0.4 MG* 0.4 mg SL Q5M PRN 05/18/18 [History Confirmed 10/24/19 ] Tiotropium [place] [Spiriva Respimat] 1 puff INH BID 05/18/18 [History Confirmed 10/24/19] PMH/Surg Hx/FS Hx/Imm Hx Previously Healthy: Yes Endocrine/Hematology History: Reports: Hx Anemia - ON IRON 3X WEEKLY Denies: Hx Diabetes, Hx Thyroid Disease Cardiovascular History: Reports: Hx Coronary Artery Disease - stent, Hx Hypercholesterolemia, Hx Hypertension, Hx Syncope, Hx Valvular Heart Disease - MItral regurg Denies: Hx Angina, Hx Myocardial Infarction, Hx Pacemaker/ICD, Other Cardiovascular Problems/Disorders Respiratory History: Reports: Hx Asthma, Hx Chronic Obstructive Pulmonary Disease (COPD), Hx Pneumonia, Other Respiratory Problems/Disorders - HX OF COPD GI History: Reports: Hx Gastroesophageal Reflux Disease Denies: Hx Ulcer History: Denies: Hx Renal Disease Musculoskeletal History: Reports: Hx Arthritis - HANDS,HIPS, Hx Rheumatoid Arthritis Sensory History: Reports: Hx Contacts or Glasses - NOT WITH THE PT, Hx Deafness - Right, 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 Denies: Hx Panic Disorder - Surgical History Surgical History: Yes Surgery Procedure, Year, and Place: CARDIAC STENT =2007. right rotator cuff. Right leg Hx Anesthesia Reactions: No - Immunization History Date of Tetanus Vaccine: unk Date of Influenza Vaccine: unk Immunizations Up to Date: Yes Infectious Disease History: Yes Infectious Disease History: Reports: Hx Shingles Denies: Hx Clostridium Difficile, Hx Hepatitis, Hx Human Immunodeficiency Virus (HIV), Hx of Known/Suspected MRSA, Hx Tuberculosis, Hx Known/Suspected VRE , Hx Known/Suspected VRSA, History Other Infectious Disease, Traveled Outside the [place] in Last 30 Days - Family History Known Family History: Positive: Hypertension - Social History Occupation: Retired Lives: With Family Alcohol Use: None Alcohol Amount: pt states he stopped 04/13/18 Hx Substance Use: No Substance Use Type: Reports: None Hx Tobacco Use: No Smoking Status (MU): Never Smoked Tobacco Have You Smoked in the Last Year: No Review of Systems Negative: Skin Diaphoresis Positive: Chest Pain - Right anterior Positive: Shortness Of Breath - Unchanged from baseline Negative: Vomiting, Nausea Negative: Edema - Bilateral LE Neurological/Mental Status: Other - Negative dizziness All Other Systems Reviewed And Are Negative: Yes Physical Exam - Summary Physical Exam Summary: Constitutional: Well-developed, Well-nourished, Alert. (-) Distressed Skin: Warm, Dry HENT: Normocephalic; Atraumatic Eyes: Conjunctiva normal Neck: Musculoskeletal ROM normal neck. (-) JVD, (-) Stridor, (-) Tracheal deviation Cardio: Rhythm regular, rate normal, Heart sounds normal; Intact distal pulses; The pedal pulses are 2+ and symmetric. Radial pulses are 2+ and symmetric. Pulmonary/Chest wall: Effort normal. (-) Respiratory distress, (-) Wheezes, (-) Rales Abd: Soft, (-) tenderness, (-) Distension, (-) Guarding, (-) Rebound Musculoskeletal: (-) Edema Neuro: Alert, Oriented x3 Triage Information Reviewed: Yes Vital Signs On Initial Exam: Initial Vitals Temp Pulse Resp BP Pulse Ox 97.2 F 67 18 132/74 96 10/24/19 17:58 10/24/19 17:58 10/24/19 17:58 10/24/19 17:58 10/24/19 17:58 Vital Signs Reviewed: Yes Procedures - Sedation Patient Received Moderate/Deep Sedation with Procedure: No Diagnostics - Vital Signs Vital Signs Temp Pulse Resp BP Pulse Ox 10/24/19 17:58 97.2 F 67 18 132/74 96 - Laboratory Result Diagrams: 10/24/19 18:31 10/24/19 18:31 Lab Statement: Any lab studies that have been ordered have been reviewed, and results considered in the medical decision making process. - Radiology Chest X-ray Radiology Interpretation Completed By: Radiologist Summary of Radiographic Findings: Chest X-ray IMPRESSION: no acute process. Reviewed and interpreted by Dr. Juarez, pending official radiology report. - EKG 18:01 Cardiac Rate: NL - 68 BPM EKG Rhythm: Sinus Rhythm ST Segment: Normal Ectopy: None Summary of EKG Findings: An EKG at 18:01 reveals normal sinus rhythm with 68 BPM , submilimeter ST segment abnormality in lead V2, RBBB, incomplete LBBB, nonspecific T wave abnormality without ischemic ST elevations, nml axis, nml intervals. No STEMI. No acute changes. Reviewed and interpreted by Dr. Juarez. 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 The chest pain lasted for 10-15 minutes before resolving. He reports feeling "foggy" during the chest pain, but this has since resolved. Currently, he notes shortness of breath which is not new and unchanged from baseline. Patient denies dizziness, diaphoresis, nausea, vomiting, or bilateral LE edema. PMHx is significant for HTN, HLD, COPD, and prostate problem. PSHx is significant for cardiac stent placement in 2007. Last cardiac stress test was less than 5 years ago and had unremarkable findings. On exam, unremarkable findings. All other abnormal lab results are not pertinent to current cc. An EKG at 18:01 reveals normal sinus rhythm with 68 BPM, submilimeter ST segment abnormality in lead V2 , RBBB, incomplete LBBB, nonspecific T wave abnormality without ischemic ST elevations, nml axis, nml intervals. No STEMI. No acute changes. Chest X-ray IMPRESSION: no acute process. Patient is a sign out at 19:00 on 10/24/[address] Khang Juarez to Dr. Kane Gonzalez at shift change, pending further workup and disposition. - Diagnoses Provider Diagnoses: Chest pain Discharge ED - Sign-Out/Discharge Documenting (check all that apply): Sign-Out Patient Signing out patient TO: Kane Gonzalez - Patient is a sign out at 19:00 on 10/[address] Khang Juarez to Dr. Kane Gonzalez at shift change, pending further workup and disposition. - Discharge Plan Condition: Stable Referrals: Corey Garay MD [Primary Care Provider] - - Attestation Statements Document Initiated by Scribe: Yes Documenting Scribe: Ronna Goode Provider For Whom Scribe is Documenting (Include Credential): Khang Juarez MD Scribe Attestation: Ronna Goode, scribed for Khang Juarez MD on 10/24/19 at 1916. Status of Scribe Document: Ready
[2019-10-24 18:46] LABS: ABS Basophils 0.1 10^3/ul (0-0.2); ABS Eosinophils 0.2 10^3/ul (0-0.6); ABS Lymphocytes 1.5 10^3/ul (1.0-4.8); ABS Monocytes 0.5 10^3/ul (0-0.8); ABS Neutrophils 3.5 10^3/ul (1.5-7.7); Eosinophil % 3.6 %; Hematocrit 38 % (42-52); Hemoglobin 13.3 g/dL (14.0-18.0); Lymphocyte % 25.2 %; Mean Corpuscular HGB Conc 35 g/dL (31-36); Mean Corpuscular Hemoglobin 30 pg (27-31); Mean Corpuscular Volume 85 fL (80-94); Mean Platelet Volume 8.7 fL (7.4-10.4); Platelet Count 254 10^3/uL (150-450); Red Cell Distribution Width 14 % (10-15); White Blood Count 5.8 10^3/uL (3.5-10.8)
[2019-10-24 18:57] LABS: Troponin I 0.01 ng/mL (<0.03)
[2019-10-24 18:58] LABS: Albumin 3.9 g/dL (3.2-5.2); Albumin/Globulin Ratio 1.4 (1-3); BUN/Creatinine Ratio 18.3 (8-20); Calcium 8.6 mg/dL (8.6-10.3); EGFR African American 93.9 (>60); EGFR Non-African American 77.6 (>60); Globulin 2.8 g/dL (2-4); Potassium 4.2 mmol/L (3.5-5.0); Total Bilirubin 0.5 mg/dL (0.2-1.0); Total Protein 6.7 g/dL (6.4-8.9)
--- NOTE | 2019-10-24 19:08 | ED ---
Progress - Progress Note Progress Note: This pt is a sign out from Dr. Khang Juarez MD to Dr. Kane Gonzalez MD pending further work-up and disposition. - Results/Orders Results/Orders: An EKG at 1930 reveals sinus bradycardia at 59 BPM with a RBBB and a LAFB. No STEMI. No acute changes. Interpreted by Dr. Cabrera at 1935 10/24/[address] Gonzalez at 10/24/20192010. CXR: No acute processes. Pending official review. Course/Dx - Course Course Of Treatment: This pt is a sign out from Dr. Khang Juarez MD to Dr. Kane Gonzalez MD pending further work-up and disposition. He has abnormal laboratory values in his Alkaline Phosphatase of 142. An EKG at 1930 reveals sinus bradycardia at 59 BPM with a RBBB and a LAFB. No STEMI. No acute changes. CXR: No acute processes. His first and second troponin were both .01. This pt will be admitted to [facility] for further observation. He was Dx'd with CP during his ED course. - Diagnoses Provider Diagnoses: Chest pain - Provider Notifications Discussed Care Of Patient With: Daniel De La Torre Time Discussed With Above Provider: 22:12 Instructed by Provider To: Admit As Inpatient - observational Admit/Transition Orders Completed By ED Provider: Yes Discharge ED - Sign-Out/Discharge Documenting (check all that apply): Patient Departure - admitted, Receiving Sign -Out Receiving patient FROM: Khang Juarez - Discharge Plan Condition: Stable Disposition: ADMITTED TO [facility] - Billing Disposition and Condition Condition: STABLE Disposition: Admitted to [facility] - Attestation Statements Document Initiated by Adithya: Yes Documenting Scribe: Jason Rivera Provider For Whom Adithya is Documenting (Include Credential): Kane Gonzalez MD Scribelmre Attestation: Jason Goode, tangelaed for Kane Gonzalez MD on 10/25/19 at 0251. Scribe Documentation Reviewed: Yes Provider Attestation: The documentation as recorded by the Jason roger accurately reflects the service I personally performed and the decisions made by me, Kane Gonzalez MD Status of Scribe Document: Viewed
[2019-10-24] MEDS ORDERED: Acetaminophen TAB* 325 MG PO PRN (22:49)
[2019-10-24] MEDS ORDERED: Nitroglycerin TAB 0.4 MG* 0.4 MG TAB SL PRN (22:49)
[2019-10-24] MEDS ORDERED: Albuterol 2.5 MG/3 ML NEB.SOL* (0.083%) INH PRN (22:49)
[2019-10-24] MEDS ORDERED: Albuterol HFA INHALER* 8 gm MDI INH PRN (22:49)
[2019-10-24] MEDS ORDERED: Enoxaparin(*) 40 MG/0.4 ML SYR SUBCUT SCH (23:00)
--- NOTE | 2019-10-24 23:53 | HP ---
History of Present Illness - History of Present Illness Reason for Visit: Chest pain History of Present Illness: 84 yo Male with known history of HTN, COPD, placement of cardiac stent , CAD presented with CC of chest pain today. 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 he felt a sharp pain which did not go away after stopping to work and drinking a cup of water. usually if he has this kind of pain, it usually resolves withing few minutes. This pain did not go away and it was concerning to the patient after about 30 minutes. He was there was shortness of breath but he has COPD and does not think it is related to the chest pain. He is compliant with his meds. 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 Denied use of tobacco. No fever. - Past Medical History Cardiac: HTN Pulmonary: COPD - Past Surgical History Past Surgical History: Other - Cardiac stent X1 (2007) - Past Family History Family History: Hypertension - Dad - Past Social History Smoke: No Alcohol: Occasional - Quit heavy drinking 2 years ago Drugs: None Lives: With Family Domestic Violence: Negative Review of Systems - Measurements Intake and Output: Intake and Output Last 24 Hours 10/22/19 10/23/19 10/24/19 10/25/19 06:59 06:59 06:59 06:59 Weight 70.307 kg - Review of Systems Dermatology: Positive: Normal HEENT: Positive: Normal Eyes: Positive: Normal Thyroid: Positive: Normal Pulmonary: Positive: Normal Cardiology: Positive: Chest Pain Negative: Shortness of Breath, Palpitations, Edema, Syncope Gastroenterology: Positive: Normal Genital - Urinary: Positive: Normal Negative: Dysuria, Hematuria, Polyuria Musculoskeletal: Negative: Joint Pain Endocrinology: Positive: Normal Hematologic/Lymphatic: Negative: Anemia Neurology: Positive: Normal Psychiatry: Positive: Normal Allergic/Immunologic: Negative: Hx Anaphylaxis, Asthma Objective Active Medications: Acetaminophen (Tylenol Tab*) 650 mg PO Q6H PRN PRN Reason: FEVER/PAIN Albuterol (Ventolin 2.5 Mg/3 Ml Neb.Marlena*) 2.5 mg INH RT.[id number] AWAKE PRN PRN Reason: SOB/WHEEZING Albuterol (Ventolin Hfa Inhaler*) 2 puff INH Q4H PRN PRN Reason: SOB/WHEEZING Amlodipine Besylate (Norvasc Tab*) 5 mg PO DAILY KATHRYN Aspirin (Aspirin Ec Tab*) 81 mg PO DAILY [facility] Atorvastatin Calcium (Lipitor*) 80 mg PO BEDTIME [facility] Enoxaparin Sodium (Lovenox(*)) 40 mg SUBCUT BEDTIME [facility] Metoprolol Succinate (Toprol Xl Tab*) 25 mg PO DAILY [facility] Montelukast Sodium (Singulair Tab*) 10 mg PO DAILY [facility] Nitroglycerin (Nitroglycerin Tab 0.4 Mg*) 0.4 mg SL Q5M PRN PRN Reason: ANGINA Non-Formulary Medication (Tiotropium Weems [Spiriva Respimat]) 1 puff INH BID [facility] Tamsulosin HCl (Flomax Cap*) 0.4 mg PO DAILY [facility] Vital Signs - 8 hr 10/24/19 10/24/19 10/24/19 17:58 19:14 19:46 Temperature 97.2 F Pulse Rate 67 72 60 Respiratory 18 18 18 Rate Blood Pressure 132/74 123/72 113/72 (mmHg) O2 Sat by Pulse 96 90 96 Oximetry 10/24/19 10/24/19 10/24/19 22:21 23:08 23:32 Temperature 97 F Pulse Rate 74 49 66 Respiratory 18 18 18 Rate Blood Pressure 119/69 87/41 121/85 (mmHg) O2 Sat by Pulse 98 98 95 Oximetry Appearance: Awake, alert and in no apparent distress. Eyes: No Scleral Icterus Ears/Nose/Mouth/Throat: NL Teeth, Lips, Gums, Clear Oropharnyx, Mucous Membranes Moist Neck: NL Appearance and Movements; NL JVP, Trachea Midline, No Thyroid Enlargement, Masses Respiratory: Symmetrical Chest Expansion and Respiratory Effort, Clear to Auscultation Cardiovascular: NL Sounds; No Murmurs; No JVD, RRR, No Edema Abdominal: NL Sounds; No Tenderness; No Distention, No Hepatosplenomegaly Lymphatic: No Cervical Adenopathy Extremities: No Edema, No Clubbing, Cyanosis Skin: No Rash or Ulcers Neurological: Alert and Oriented x 3 Result Diagrams: 10/25/19 05:18 10/25/19 05:18 EKG Data: Diagnostics Summary of Radiographic Chest X-ray IMPRESSION: no acute process. Findings [Chest X-ray] Reviewed and interpreted by Dr. Juarez, pending official radiology report. Summary of EKG Findings [18:01 An EKG at 18:01 reveals normal sinus rhythm with ] 68 BPM, submilimeter ST segment abnormality in lead V2, RBBB, incomplete LBBB, nonspecific T wave abnormality without ischemic ST elevations, nml axis, nml intervals. No STEMI. No acute changes. Reviewed and interpreted by Dr. Juarez. Assess/Plan/Problems-Billing Assessment: 84 year old Male with history of cardiac stent, HTN, COPD presented with Chest pain with negative trops for observation and cardiac workup. - Patient Problems (1) Atherosclerotic cardiovascular disease Current Visit: No Status: Acute Code(s): I25.10 - ATHSCL HEART DISEASE OF [place] CORONARY ARTERY W/O ANG PCTRS SNOMED Code(s): 87590824 Comment: c/w Statins, aspirin (2) Full code status Current Visit: No Status: Acute Code(s): Z78.9 - OTHER SPECIFIED HEALTH STATUS SNOMED Code(s): 789621171 (3) Asthma Current Visit: No Status: Chronic Code(s): J45.909 - UNSPECIFIED ASTHMA, UNCOMPLICATED SNOMED Code(s): 332756422 Comment: - No signs of exacerbation - Continue home medications (4) COPD (chronic obstructive pulmonary disease) Current Visit: No Status: Chronic Code(s): J44.9 - CHRONIC OBSTRUCTIVE PULMONARY DISEASE, UNSPECIFIED SNOMED Code(s): 48898006 Comment: - Continue bronchdilators and nebulizers as needed - Stable (5) HTN (hypertension) Current Visit: No Status: Chronic Code(s): I10 - ESSENTIAL (PRIMARY) HYPERTENSION SNOMED Code(s): 29737582 Comment: - Continue metoprolol and Norvasc (6) Chest pain Current Visit: No Status: Resolved Code(s): R07.9 - CHEST PAIN, UNSPECIFIED SNOMED Code(s): 99072003 Comment: - Resolved - Troponin negative - Followup Cardiology Consult (7) DVT prophylaxis Current Visit: No Status: Resolved Code(s): SHI6087 - SNOMED Code(s): 654080248 Comment: - Lovenox
[2019-10-25 06:19] LABS: ABS Eosinophils 0.2 10^3/ul (0-0.6); ABS Lymphocytes 1.6 10^3/ul (1.0-4.8); ABS Monocytes 0.5 10^3/ul (0-0.8); ABS Neutrophils 2.9 10^3/ul (1.5-7.7); Eosinophil % 4.2 %; Hematocrit 37 % (42-52); Hemoglobin 12.7 g/dL (14.0-18.0); Lymphocyte % 29.9 %; Mean Corpuscular HGB Conc 35 g/dL (31-36); Mean Corpuscular Hemoglobin 30 pg (27-31); Mean Corpuscular Volume 86 fL (80-94); Mean Platelet Volume 8.8 fL (7.4-10.4); Platelet Count 250 10^3/uL (150-450); Red Cell Distribution Width 14 % (10-15); White Blood Count 5.2 10^3/uL (3.5-10.8)
[2019-10-25 06:31] LABS: BUN/Creatinine Ratio 22.7 (8-20); Calcium 8.4 mg/dL (8.6-10.3); EGFR African American 100.1 (>60); EGFR Non-African American 82.7 (>60); Potassium 4.3 mmol/L (3.5-5.0)
[2019-10-25 06:34] LABS: Troponin I 0.01 ng/mL (<0.03)
[2019-10-25] MEDS ORDERED: SPIRIVA Respimat* (tiotropium) 2.5 mcg/inh Inhaler INH SCH (09:00)
[2019-10-25] MEDS ORDERED: Metoprolol Succinate XL TAB* 25 MG PO SCH (09:00)
[2019-10-25] MEDS ORDERED: Tamsulosin CAP* 0.4 MG PO SCH (09:00)
[2019-10-25] MEDS ORDERED: Aspirin EC TAB* 81 MG TAB.EC PO SCH (09:00)
[2019-10-25] MEDS ORDERED: Montelukast Sodium TAB* 10 MG PO SCH (09:00)
[2019-10-25] MEDS ORDERED: amLODIPine TAB* 5 MG PO SCH (09:00)
[2019-10-25] MEDS ORDERED: Calcium Carbonate CHEW TAB* 500 MG (TUMS) PO PRN (09:44)
--- NOTE | 2019-10-25 11:20 | ECHO ---
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 History: Coronary artery disease. Chronic obstructive pulmonary disease. Risk factors: Hypertension. Dyslipidemia. Labs, prior tests, procedures, and surgery: Catheterization. There was a stenosis which was treated with a stent. Conclusions Summary: - Left ventricle: The cavity size is normal. Wall thickness is normal. Prominent ventricular trabeculation There is a prominent septal knuckle measuring 1.2 cm. Systolic function is at the lower limits of normal. The estimated ejection fraction is 50-55%. Wall motion is normal; there are no regional wall motion abnormalities. - Right ventricle: The cavity size is normal. Systolic function is mildly reduced. Systolic pressure is within the normal range. - Left atrium: The atrium is mildly dilated. - No significant valvular abnormalities noted. Recommendations: Compared to 06/2017, findings are similar. Study data: Transthoracic echocardiogram. Procedure: Transthoracic echocardiography was performed. Image quality was fair. Complete 2D, spectral Doppler, and color flow Doppler. Location: Bedside. Patient status: Inpatient. Patient room number: 433. Rhythm: Normal sinus rhythm. Findings Left ventricle: The cavity size is normal. Wall thickness is normal. Prominent ventricular trabeculation There is a prominent septal knuckle measuring 1.2 cm. Systolic function is at the lower limits of normal. The estimated ejection fraction is 50-55%. Wall motion is normal; there are no regional wall motion abnormalities. Doppler parameters are consistent with abnormal left ventricular relaxation (grade 1 diastolic dysfunction). Right ventricle: The cavity size is normal. Systolic function is mildly reduced. Systolic pressure is within the normal range. Left atrium: The atrium is mildly dilated. Right atrium: The atrium is normal in size. Mitral valve: The Mitral valve annulus appears mildly calcified. The leaflets are mildly thickened. There is no evidence of stenosis. There is trace to mild regurgitation. Aortic valve: The annulus is mildly calcified. The valve is trileaflet. The leaflets are mildly thickened. Thickening, consistent with sclerosis. There is no evidence of stenosis. There is trace regurgitation. Tricuspid valve: The leaflets are normal thickness. There is no evidence of stenosis. There is mild regurgitation. Pulmonic valve: The leaflets are normal thickness. There is no evidence of stenosis. There is trace regurgitation. Aorta: Aortic root: The aortic root is appears normal. Ascending aorta: The ascending aorta is mildly dilated. Aortic arch: The aortic arch is appears normal. Pericardium: There is no significant pericardial effusion. Pulmonary arteries: Systolic pressure is within the normal range. Systemic veins: Inferior vena cava: The vessel is normal in size. There is (>= 50%) respiratory change in the IVC dimension. Measurements Left ventricle Value Ref Aortic valve Value Ref GIOVANNI, LAX 4.8 cm 4.2 - 5.8 Philippe diam, ED 2.2 cm ----- ESD, LAX 3.1 cm 2.5 - 4.0 Peak v, S 1.31 m/sec ----- FS, LAX 34 % 25 - 43 VTI, S 26.9 cm ----- PW, ED, LAX 0.9 cm 0.6 - 1.0 Mean grad, S 3.0 mm Hg ----- FS 34 % 25 - 43 Peak grad, S 7.0 mm Hg ----- Mid-wall FS 15 % LVOT/AV, VTI ratio 0.86 ----- PW, ED 0.9 cm 0.6 - 1.0 E', lat philippe, TDI (L) 5.2 cm/sec >=10.0 Mitral valve Value Ref E/e', lat philippe, 16 Peak E 0.81 m/sec ----- TDI Peak A 1.14 m/sec ----- E', med philippe, TDI (L) 6.1 cm/sec >=7.0 Decel time 250 ms --- -- E/e', med philippe, 13 Peak grad, D 2.6 mm Hg ----- TDI Peak E/A ratio 0.7 ----- E', avg, TDI 5.7 cm/sec E/e', avg, TDI 14 <=14 Pulmonic valve Value Ref Peak v, S 1.02 m/sec ----- LVOT Value Ref Peak grad, S 4.0 mm Hg ----- Peak jennie, S 1.08 m/sec VTI, S 23.0 cm Tricuspid valve Value Ref Mean grad, S 2 mm Hg TR peak v 2.41 m/sec <=2.8 Peak RV-RA grad, S 23 mm Hg ----- Ventricular septum Value Ref IVS, ED (H) 1.2 cm 0.6 - 1.0 Aortic root Value Ref Root diam 3.4 cm <4.0 Right ventricle Value Ref GIOVANNI, LAX 3.9 cm Ascending aorta Value Ref GIOVANNI minor ax, A4C (H) 4.4 cm 1.9 - 3.5 AAo AP diam, S 3.6 cm ----- mid Pressure, S 26 mm Hg Aortic arch Value Ref Arch diam 2.8 cm ----- Left atrium Value Ref AP dim, ES (H) 4.20 cm 3.00 - Decending aorta Value Ref 4.00 Janene peak jennie 0.71 m/sec ----- ML dim, A4C 4.9 cm SI dim, A4C 5.7 cm Pulmonary artery Value Ref Vol/bsa, ES, 1-p (H) 38 ml/m^2 12 - 37 Pressure, S 22.0 mm Hg ----- A4C Vol/bsa, ES, A/L (H) 37 ml/m^2 16 - 34 Inferior vena cava Value Ref Diam 1.6 cm ----- Right atrium Value Ref SI dim, ES 4.4 cm 3.4 - 5.3 ML dim, ES, A4C 3.9 cm 2.6 - 4.4 Estimated RAP 3 mm Hg Legend: (L) and (H) jaqueline values outside specified reference range. Prepared and electronically signed by Sukhdev Anderson MD 10/25/2019 11:20
[2019-10-25] MEDS ORDERED: Perflutren Lipid Microsphere* 3 ML VIAL ONE (14:20)
--- NOTE | 2019-10-25 15:10 | STRESS ---
"*[facility]* [place] [address] Fax #: [phone] Stress Echocardiogram Modified Chidi protocol Patient: Luis Alfredo Solomon : 1935 Study Date: 10/25/2019 Age: 84 Gender: M HR: 70 bpm Height: 64 in /162.6 cm BSA: 1.86 m^2 Weight: 165 lb /75 kg BMI: 28.4 kg/m^2 *Greige Goods Examiner: Ronna Argueta [facility] *Referring Physician: * Sukhdev Anderson MD *Reading Physician: * Sukhdev Anderson MD Indications: Chest Pain, unspecified. History: Coronary artery disease. Chronic obstructive pulmonary disease. Risk factors: Hypertension. Dyslipidemia. Labs, prior tests, procedures, and surgery: Catheterization. There was a stenosis which was treated with a stent. Conclusions Summary: Normal maximal exercise stress echocardiogram. Quick heart rate recovery reduces sensitivity to detect ischemia. Reduced exercise capacity. Presenting symptoms not reproduced. Study data: Stress echocardiogram Consent: The risks and benefits of the procedure, including alternatives were discussed with the patient and/or their health care medical claims representative and written informed consent was obtained. Procedure: Initial setup: Surface ECG leads and manual cuff blood pressure measurements were monitored throughout the procedure. A baseline ECG was recorded. Treadmill exercise testing was performed using the modified Chidi protocol. The patient exercised for 4 min 35 sec, to protocol stage 1, to a maximal work rate of 4.6 mets. Exercise was terminated due to dyspnea. No chest discomfort noted. The patient was positioned for image acquisition and recovery monitoring. Transthoracic stress echocardiography. Image quality was good. Images were captured at baseline and peak exercise. Intravenous contrast Definity, 4 mls was administered. Location: Echo laboratory. Patient status: Inpatient. Patient location: Stress lab. Patient room number: 433. Study status: Routine. Study completion: There were no complications. Findings Baseline ECG: Normal sinus rhythm with right bundle branch plus left anterior fascicular block. Cardiac stress table: + +---+ + + |Time into test|HR |BP |Comments | + +---+ + + |00:00 |70 |135/69 (91) | | + +---+ + + |01:00 |97 |150/83 (105)| | + +---+ + + |02:00 |107|150/83 (105)| | + +---+ + + |03:00 |114|186/73 (111)| | + +---+ + + |04:00 |133|186/73 (111)| | + +---+ + + |04:35 |120|186/73 (111)|Stop exercise.| + +---+ + + Stress results: Maximal heart rate during stress was 133 bpm (97% of maximal predicted heart rate). The maximal predicted heart rate was 137 bpm.The target heart rate was 116 bpm.The target heart rate was achieved. The heart rate response to stress is normal. There is a normal resting blood pressure with an appropriate response to stress. The rate-pressure product for the peak heart rate and blood pressure was 63732 mm Hg/min. Functional capacity is normal. Stress ECG: There are no stress arrhythmias or conduction abnormalities. Sinus tachycardia. Baseline: LV global systolic function is normal. The estimated LV ejection fraction is 55-60%. Normal wall motion; no LV regional wall motion abnormalities. Peak stress: LV global systolic function is vigorous. Normal wall motion; no LV regional wall motion abnormalities. Stress echo results: There is no evidence for stress-induced ischemia. Prepared and electronically signed by Suhkdev Anderson MD 10/25/2019 15:08"
--- NOTE | 2019-10-25 15:11 | CONSULT ---
Subjective Date of Service: 10/25/19 Interval History: Admission Date: 10/24/19 Date of consult 10/25/2019 PCP: Dr Garay Value Advisor: Dr. Gomez cc: Chest pain Reason for consult: same History of Present Illness: Mr. Solomon is an 84 yo man with a history as below. He was working outside adn felt a sharp chest pain that usually resolved. He thinks it might have been heartburn. It did not resolve and he became concerned and presented to the ER. He has chronic CALDERON related to COPD. He ruled out for ACS with serial troponins. 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 - Past Surgical History PCI 2007 - Past Family History Family History: Hypertension - Dad - Past Social History Smoke: No Alcohol: Occasional - Quit heavy alcohol 2 years ago Drugs: None Lives: With Family Medications Active Medications: Acetaminophen (Tylenol Tab*) 650 mg PO Q6H PRN PRN Reason: FEVER/PAIN Albuterol (Ventolin 2.5 Mg/3 Ml Neb.Neida*) 2.5 mg INH [id number] AWAKE PRN PRN Reason: SOB/WHEEZING Albuterol (Ventolin Hfa Inhaler*) 2 puff INH Q4H PRN PRN Reason: SOB/WHEEZING Amlodipine Besylate (Norvasc Tab*) 5 mg PO DAILY [facility] Last Admin: 10/25/19 09:37 Dose: 5 mg Aspirin (Aspirin Ec Tab*) 81 mg PO DAILY [facility] Last Admin: 10/25/19 09:38 Dose: 81 mg Atorvastatin Calcium (Lipitor*) 80 mg PO BEDTIME [facility] Calcium Carbonate (Tums*) 500 mg PO Q4H PRN PRN Reason: INDIGESTION Last Admin: 10/25/19 10:40 Dose: 500 mg Enoxaparin Sodium (Lovenox(*)) 40 mg SUBCUT BEDTIME [facility] Last Admin: 10/25/19 01:08 Dose: 40 mg Metoprolol Succinate (Toprol Xl Tab*) 25 mg PO DAILY [facility] Last Admin: 10/25/19 09:38 Dose: 25 mg Montelukast Sodium (Singulair Tab*) 10 mg PO DAILY [facility] Last Admin: 10/25/19 09:37 Dose: 10 mg Nitroglycerin (Nitroglycerin Tab 0.4 Mg*) 0.4 mg SL Q5M PRN PRN Reason: ANGINA Tamsulosin HCl (Flomax Cap*) 0.4 mg PO DAILY [facility] Last Admin: 10/25/19 09:37 Dose: 0.4 mg Tiotropium [place] (Spiriva Respimat 2.5 Mcg) 2 puff INH DAILY [facility] Last Admin: 10/25/19 10:49 Dose: 2 puff Home Medications: Amlodipine Besylate [Norvasc 5 mg tab] 5 mg PO DAILY 01/21/17 [History Confirmed 10/24/19] Aspirin [Aspirin 81 MG TAB] 81 mg PO DAILY 01/21/17 [History Confirmed 10/24/19] Atorvastatin* [Lipitor 80 MG*] 80 mg PO QPM 01/21/17 [History Confirmed 10/24/19 ] Metoprolol Succinate [Toprol Xl] 25 mg PO DAILY 01/21/17 [History Confirmed 01/07] Montelukast Sodium TAB* [Singulair 10 MG TAB*] 10 mg PO DAILY 01/21/17 [History Confirmed 10/24/19] Tamsulosin HCl [Flomax] 0.4 mg PO DAILY 01/21/17 [History Confirmed 10/24/19] Spacer/Holding Chamber (NF) [Easivent CHAMBER (NF)] 1 applic INH QID 30 Days #1 device 04/07/18 [Rx Confirmed 10/24/19] Acetaminophen TAB* [Tylenol TAB*] 650 mg PO Q6H PRN tab 04/18/18 [Rx Confirmed 10/24/19] Albuterol 2.5MG/3ML (0.083%)* [Ventolin 2.5 MG/3 ML NEB.NEIDA*] 2.5 mg INH RT.Q6HR -WHILE AWAKE PRN neb.soln 04/18/18 [Rx Confirmed 10/24/19] Albuterol HFA INHALER* [Ventolin HFA Inhaler*] 2 puff INH Q4H PRN 05/18/18 [ History Confirmed 10/24/19] Nitroglycerin TAB 0.4 MG* 0.4 mg SL Q5M PRN 05/18/18 [History Confirmed 10/24/19 ] Tiotropium [place] [Spiriva Respimat] 1 puff INH BID 05/18/18 [History Confirmed 10/24/19] Review of Systems - Measurements Intake and Output: Intake and Output Last 24 Hours 10/23/19 10/24/19 10/25/19 10/26/19 06:59 06:59 06:59 06:59 Intake Total 0 240 Balance 0 240 Weight 165 lb 9.6 oz Intake: Oral 0 240 - Review of Systems Constitutional Symptoms: Negative: Weight Gain, Weight Loss, Weakness, Fatigue, Fever, Night Sweats Dermatology: Negative: Rash, Skin Lesions HEENT: Negative: Change in Hearing, Vertigo Eyes: Negative: Change in Vision, Double Vision Thyroid: Negative: Palpitations, Weight Loss Pulmonary: Positive: Shortness of Breath, COPD Negative: Hemoptysis Cardiology: Positive: Chest Pain, Shortness of Breath Negative: Palpitations, Swelling of Ankles, Peripheral Vascular Dis, Edema, Faintness, Syncope, Claudication, Paroxysmal Nocturnal Dyspnea, Orthopnea Gastroenterology: Negative: Blood in Stools, Haematemesis, Melena Genital - Urinary: Negative: Dysuria, Hematuria, Nocturia Musculoskeletal: Negative: Joint Pain, Joint Stiffness Endocrinology: Positive: Obesity Negative: Polydipsia, Polyuria Hematologic/Lymphatic: Positive: Use of Antiplatelet Drugs Negative: Use of Anticoagulant Neurology: Negative: Hx of Stroke\TIA, Hx Seizures Psychiatry: Negative: Unusual Anxiety, Suicidal Ideation Allergic/Immunologic: Negative: Hx HIV, Immunocompromise Review of Systems Statement: All other review of systems negative, unless stated above. Objective Vital Signs: Temp Pulse Resp BP Pulse Ox 97.5 F 58 16 113/71 96 10/25/19 11:34 10/25/19 11:34 10/25/19 11:34 10/25/19 11:34 10/25/19 11:34 Oxygen Devices in Use Now: None Appearance: obese, nad Ears/Nose/Mouth/Throat: Clear Oropharnyx, Mucous Membranes Moist Neck: NL Appearance and Movements; NL JVP, Trachea Midline Respiratory: Symmetrical Chest Expansion and Respiratory Effort, Clear to Auscultation Cardiovascular: NL Sounds; No Murmurs; No JVD, RRR, No Edema Abdominal: NL Sounds; No Tenderness; No Distention Extremities: No Edema Skin: No Rash or Ulcers Neurological: Alert and Oriented x 3 Laboratory Results: 10/25/19 05:18 10/25/19 05:18 Total Bilirubin 0.50 mg/dL (0.2-1.0) 10/24/19 18:31 AST 21 U/L (13-39) 10/24/19 18:31 ALT 24 U/L (7-52) 10/24/19 18:31 Alkaline Phosphatase 142 U/L (34-104) H 10/24/19 18:31 Total Protein 6.7 g/dL (6.4-8.9) 10/24/19 18:31 Albumin 3.9 g/dL (3.2-5.2) 10/24/19 18:31 Globulin 2.8 g/dL (2-4) 10/24/19 18:31 Albumin/Globulin Ratio 1.4 (1-3) 10/24/19 18:31 10/24/19 10/24/19 10/25/19 18:31 21:26 00:56 Troponin I 0.01 0.01 0.01 10/25/19 05:18 Troponin I 0.01 Diagnostic Imaging: Stress Echocardiogram Study Date: 10/25/2019 Conclusions Summary: Normal maximal exercise stress echocardiogram. Quick heart rate recovery reduces sensitivity to detect ischemia. Reduced exercise capacity. Presenting symptoms not reproduced. Treadmill exercise testing was performed using the modified Chidi protocol. The patient exercised for 4 min 35 sec, to protocol stage 1, to a maximal work rate of 4.6 mets. Exercise was terminated due to dyspnea. No chest discomfort noted. Intravenous contrast Definity, 4 mls was administered. 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 Stress results: Maximal heart rate during stress was 133 bpm (97% of maximal predicted heart rate). The maximal predicted heart rate was 137 bpm.The target heart rate was 116 bpm.The target heart rate was achieved. The heart rate response to stress is normal. There is a normal resting blood pressure with an appropriate response to stress. Stress ECG: There are no stress arrhythmias or conduction Baseline: LV global systolic function is normal. The estimated LV ejection fraction is 55-60%. Normal wall motion; no LV regional wall motion abnormalities. Peak stress: LV global systolic function is vigorous. Normal wall motion; no LV regional wall motion abnormalities. Stress echo results: There is no evidence for stress-induced ischemia. Transthoracic Echocardiogram Study Date: 10/25/2019 Summary: - Left ventricle: The cavity size is normal. Wall thickness is normal. Prominent ventricular trabeculation There is a prominent septal knuckle measuring 1.2 cm. Systolic function is at the lower limits of normal. The estimated ejection fraction is 50-55%. Wall motion is normal; there are no regional wall motion abnormalities. - Right ventricle: The cavity size is normal. Systolic function is mildly reduced. Systolic pressure is within the normal range. - Left atrium: The atrium is mildly dilated. - No significant valvular abnormalities noted. Exam Date: 10/24/19 CHEST AP/PORT IMPRESSION: No acute pulmonary or cardiac process evident. 06/20/2008 cardiac catheterization Unstable angina PCI to 90% mid LAD with balloon of diagonal intermediate non-obstructive disease elsewhere 06/2009 cardiac catheterization - atypical chest pain, abnormal nuclear scan No significant CAD EKG Data: ekg 10/24/2019: NSr, RBBB/LAFB unchanged on repeat similar to 04/19/2018 Assessment/Plan Patient admitted with chest pain, he ruled out for ACS, stress echo was normal without reproduction of symptoms. Chest pain appears non-cardiac. He should continue to undergo secondary prevention evaluation and treatment through his PCP and cardiologists office
[2019-10-25 17:18] VITALS: BP 127/75
[2019-10-25] MEDS ORDERED: Atorvastatin* 80 MG TAB PO SCH (21:00)
--- NOTE | 2019-10-26 02:28 | DS ---
DISCHARGE SUMMARY: DATE OF ADMISSION: 10/24/19 DATE OF DISCHARGE: 10/25/19 PROVIDER: ROSS Hdz ATTENDING PHYSICIAN WHILE IN THE HOSPITAL: Roslyn Wu MD * (dictated by ROSS Hdz) PRIMARY DIAGNOSIS: Chest pain possibly related to gastroesophageal reflux disease, acute coronary syndrome ruled out. SECONDARY DIAGNOSES: 1. Coronary artery disease with a history of cardiac stents. 2. Chronic obstructive pulmonary disease. 3. Hypertension. 4. Gastroesophageal reflux disease. 5. Remote history of alcohol use disorder. PERTINENT STUDIES WHILE IN THE HOSPITAL: 1. Chest x-ray on 10/24/19, impression: No acute pulmonary or cardiac process evident. 2. Transthoracic echocardiogram on 10/25/19, pertinent for prominent ventricular trabeculation. There is a prominent septal knuckle measured 1.2 cm. Systolic function is at the lower limits of normal. EF is 50% to 55%. Grade I diastolic dysfunction. 3. Stress echo on 10/25/19, summary of conclusions, normal maximal exercise stress echocardiogram. Click heart rate recovery reduced his sensitivity to detect ischemia. Reduced exercise capacity. Presenting symptoms are reproduced. Please see full report for further details. PERTINENT LABS: Troponin 0.01 x4 readings. Nonfasting LDL 69. HISTORY OF PRESENT ILLNESS/HOSPITAL COURSE: Luis Alfredo Solomon is an 84-year-old white male with past medical history significant for coronary artery disease status post cardiac stenting, COPD, hypertension, and GERD who presented to the emergency department due to chest pain associated with shortness of breath that lasted approximately 30 minutes after doing light yard work including picking up light amount of sticks. The patient will sometimes feel similar chest pain sensation that goes away usually with drinking water and relaxing, though neither of these methods improve the pain and he presented to the emergency department due to concern. His EKG was without any ischemic changes. He has a right bundle-branch block, which is not new and otherwise, no ischemic evidence of ST depressions, elevations or T wave inversions. His transthoracic echocardiogram is briefly described above, but the full report should be reviewed, but I was concerned regarding his prominent septal knuckle. For this reason, I consulted Dr. Anderson of the cardiology service due to concern for possible LVOT and stress echo was performed on date of discharge. Dr. Anderson felt that the patient was effectively ruled for ACS and stress echo did not demonstrate any concerns for dynamic LVOT. On day of discharge, the patient is feeling his normal self. He did not have any further complaints of shortness of breath, chest pain and denies previous syncope or palpitations. PHYSICAL EXAMINATION: Elderly white male, lying in hospital bed, appearing comfortable, in no acute distress. Eyes: PERRL. Sclerae anicteric. ENT: Mucous membranes moist. Lungs: Clear to auscultation throughout. Cardio: Regular rate and rhythm without murmurs, rubs, or gallops. Abdomen: Soft, nontender, nondistended. Extremities: No clubbing, cyanosis, or edema. Neuro : The patient is alert and oriented x3. 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 He already has an appointment scheduled for November. He should keep his appointment. I suggested that he follow up with his primary care provider within 1 week. He was advised to please return to the emergency department if he is experiencing shortness of breath, chest pain, chest pressure , prolonged chest palpitations, or loss of consciousness or other concerning symptoms. He was advised that if he is experiencing similar feelings of chest pain that feels similar to indigestion, then he should try taking Tums, ranitidine, or famotidine. If these do not resolve his chest pain, then he should proceed to emergency department due to his previous cardiac history. DISCHARGE DIET: Heart healthy diet. ACTIVITY: The patient may return to activity as tolerated. DISCHARGE MEDICATIONS: New medications: 1. Tums 500 mg p.o. q.4 hours indigestion. Continued home medications: 1. Lipitor 80 mg p.o. daily. 2. Aspirin 81 mg p.o. daily. 3. Amlodipine 5 mg p.o. daily. 4. Albuterol inhaler 2 puffs inhaled q.4 hours p.r.n. shortness of breath or wheezing. 5. Albuterol nebulized solution 2.5 mg inhaled q.6 hours p.r.n. shortness of breath or wheezing. 6. Tylenol 650 mg p.o. q.6 hours p.r.n. 7. Spiriva 1 puff inhaled b.i.d. 8. Tamsulosin 0.4 mg p.o. daily. 9. Nitroglycerin 0.4 mg sublingual q.5 minutes p.r.n. angina. 10. Singulair 10 mg p.o. daily. 11. Metoprolol succinate 25 mg p.o. daily. CONDITION ON DISCHARGE: Stable. DISPOSITION: Home. TIME SPENT: Approximately 40 minutes was spent on this discharge, approximately half of this time was spent at bedside evaluating the patient, discussing the plan of care and coordinating this plan of care. ROSS HDZ [id number]/CPS #: [id number] MTDD
== END 2019-10-25 17:00 | disposition home or self-care (01) ==
LOC: ED 17:57 → MEDTELE 22:53
PROVIDERS: ADMIT Family Medicine; ATTEND Internal Medicine
DX: R07.9 Chest pain, unspecified (principal); K21.9 Gastro-esophageal reflux disease without esophagitis; I25.10 Atherosclerotic heart disease of native coronary artery without angina pectoris; J45.909 Unspecified asthma, uncomplicated; J44.9 Chronic obstructive pulmonary disease, unspecified; I45.10 Unspecified right bundle-branch block; Z95.5 Presence of coronary angioplasty implant and graft; I10 Essential (primary) hypertension; Z79.82 Long term (current) use of aspirin; Z79.899 Other long term (current) drug therapy; Z79.51 Long term (current) use of inhaled steroids
CPT/HCPCS: 36415; 71045; 80048; 80053; 83605; 83721; 83735; 84484; 85025; 93005; 93306; 93351; 94640; 96372; 99284; A9270-GY; G0378; J1650; J3535

== ENCOUNTER 2021-03-15 04:12 | Inpatient (IN) ==
[2021-03-15 04:55] LABS: ABS Basophils 0.1 10^3/ul (0-0.2); ABS Eosinophils 0.3 10^3/ul (0-0.6); ABS Lymphocytes 0.9 10^3/ul (1.0-4.8); ABS Monocytes 0.5 10^3/ul (0-0.8); ABS Neutrophils 6.1 10^3/ul (1.5-7.7); Eosinophil % 4.1 %; Hematocrit 39 % (42-52); Hemoglobin 13.2 g/dL (14.0-18.0); Lymphocyte % 11.3 %; Mean Corpuscular HGB Conc 34 g/dL (31-36); Mean Corpuscular Hemoglobin 30 pg (27-31); Mean Corpuscular Volume 90 fL (80-94); Mean Platelet Volume 8.6 fL (7.4-10.4); Platelet Count 300 10^3/uL (150-450); Red Blood Count 4.36 10^6 /uL (4.18-5.48); Red Cell Distribution Width 13 % (10-15); White Blood Count 7.9 10^3/uL (3.5-10.8)
[2021-03-15 05:11] LABS: Albumin 4.2 g/dL (3.2-5.2); Albumin/Globulin Ratio 1.6 (1-3); Calcium 9.1 mg/dL (8.6-10.3); EGFR African American 106.8 (>60); EGFR Non-African American 88.3 (>60); Globulin 2.6 g/dL (2-4); Potassium 4.1 mmol/L (3.5-5.0); Total Bilirubin 0.5 mg/dL (0.2-1.0); Total Protein 6.8 g/dL (6.4-8.9)
[2021-03-15 05:14] LABS: Troponin I 0.01 ng/mL (<0.03)
[2021-03-15] MEDS ORDERED: methylPREDNISolone 125 mg 2 ML VIAL IV ONE (05:55)
[2021-03-15] MEDS ORDERED: Albuterol 2.5mg/3 ml (0.083%) NEB.SOLN INH ONE (05:55)
[2021-03-15 06:08] LABS: PCO2 Arterial 41 mmHg (35-45); PO2 Arterial 160 mmHg (80-100)
[2021-03-15] MEDS: Aspirin EC 81 mg TAB.EC (enteric coated) PO SCH (09:59)
[2021-03-15] MEDS ORDERED: cefTRIAXone 1 GM/50 ML PREMIX.BAG IV ONE (10:00)
[2021-03-15] MEDS ORDERED: Azithromycin 500 MG IV - ED ONCE IVPB ONE (10:30)
[2021-03-15] MEDS: Albuterol 2.5mg/3 ml (0.083%) NEB.SOLN INH SCH ×4 (15:21→23:30)
[2021-03-15] MEDS: methylPREDNISolone SOD 40 mg/ml 1 ml VIAL IV SCH (18:37)
[2021-03-15] MEDS: Enoxaparin 40 MG/0.4 ML SYR SUBCUT SCH (20:17)
[2021-03-15] MEDS: Mometasone/Formoter 200/5 MDI INH SCH (20:34)
[2021-03-16] MEDS: methylPREDNISolone SOD 40 mg/ml 1 ml VIAL IV SCH ×2 (05:25→17:50)
[2021-03-16] MEDS: Albuterol 2.5mg/3 ml (0.083%) NEB.SOLN INH SCH ×4 (05:48→19:32)
[2021-03-16] MEDS: Mometasone/Formoter 200/5 MDI INH SCH ×2 (07:31→19:32)
[2021-03-16] MEDS: Aspirin EC 81 mg TAB.EC (enteric coated) PO SCH (10:45)
[2021-03-16] MEDS: Azithromycin 500 mg/250 ml NS 500 MG/250 ML BAG IVPB SCH (10:48)
[2021-03-16] MEDS: cefTRIAXone 1 gm/50 mL NS BAG 1 GM/50 ML BAG IVPB SCH (10:48)
[2021-03-16] MEDS: Enoxaparin 40 MG/0.4 ML SYR SUBCUT SCH (20:13)
[2021-03-17] MEDS: Albuterol 2.5mg/3 ml (0.083%) NEB.SOLN INH SCH ×4 (01:56→19:26)
[2021-03-17] MEDS: methylPREDNISolone SOD 40 mg/ml 1 ml VIAL IV SCH ×2 (05:26→17:48)
[2021-03-17] MEDS: Mometasone/Formoter 200/5 MDI INH SCH ×2 (09:49→19:27)
[2021-03-17] MEDS: Aspirin EC 81 mg TAB.EC (enteric coated) PO SCH (10:18)
[2021-03-17] MEDS: cefTRIAXone 1 gm/50 mL NS BAG 1 GM/50 ML BAG IVPB SCH (10:18)
[2021-03-17] MEDS: Azithromycin 500 mg/250 ml NS 500 MG/250 ML BAG IVPB SCH (12:02)
[2021-03-17] MEDS: Enoxaparin 40 MG/0.4 ML SYR SUBCUT SCH (20:20)
[2021-03-18] MEDS: Albuterol 2.5mg/3 ml (0.083%) NEB.SOLN INH SCH ×5 (00:36→19:38)
[2021-03-18] MEDS: methylPREDNISolone SOD 40 mg/ml 1 ml VIAL IV SCH ×2 (05:43→17:27)
[2021-03-18] MEDS: Mometasone/Formoter 200/5 MDI INH SCH ×2 (07:13→19:38)
[2021-03-18 08:54] LABS: ABS Lymphocytes 0.8 10^3/ul (1.0-4.8); ABS Monocytes 0.5 10^3/ul (0-0.8); ABS Neutrophils 7.2 10^3/ul (1.5-7.7); Hematocrit 40 % (42-52); Hemoglobin 13.8 g/dL (14.0-18.0); Lymphocyte % 9.7 %; Mean Corpuscular HGB Conc 35 g/dL (31-36); Mean Corpuscular Hemoglobin 31 pg (27-31); Mean Corpuscular Volume 90 fL (80-94); Mean Platelet Volume 8.9 fL (7.4-10.4); Platelet Count 284 10^3/uL (150-450); Red Blood Count 4.47 10^6 /uL (4.18-5.48); Red Cell Distribution Width 13 % (10-15); White Blood Count 8.5 10^3/uL (3.5-10.8)
[2021-03-18 09:08] LABS: Calcium 9.4 mg/dL (8.6-10.3); EGFR African American 113.1 (>60); EGFR Non-African American 93.4 (>60); Potassium 4.2 mmol/L (3.5-5.0)
[2021-03-18] MEDS: cefTRIAXone 1 gm/50 mL NS BAG 1 GM/50 ML BAG IVPB SCH (09:56)
[2021-03-18] MEDS: Aspirin EC 81 mg TAB.EC (enteric coated) PO SCH (09:56)
[2021-03-18] MEDS: Azithromycin 500 mg/250 ml NS 500 MG/250 ML BAG IVPB SCH (10:49)
[2021-03-18] MEDS: Enoxaparin 40 MG/0.4 ML SYR SUBCUT SCH (19:21)
[2021-03-19] MEDS: Albuterol 2.5mg/3 ml (0.083%) NEB.SOLN INH SCH ×2 (02:06→07:51)
[2021-03-19] MEDS: methylPREDNISolone SOD 40 mg/ml 1 ml VIAL IV SCH (06:02)
[2021-03-19] MEDS: Mometasone/Formoter 200/5 MDI INH SCH (07:52)
[2021-03-19] MEDS: cefTRIAXone 1 gm/50 mL NS BAG 1 GM/50 ML BAG IVPB SCH (09:54)
[2021-03-19] MEDS: Aspirin EC 81 mg TAB.EC (enteric coated) PO SCH (09:54)
[2021-03-19] MEDS: Azithromycin 500 mg/250 ml NS 500 MG/250 ML BAG IVPB SCH (11:17)
[2021-03-19 11:19] VITALS: BP 140/86
== END 2021-03-19 13:20 | disposition home or self-care (01) | DRG 192 ==
LOC: MED 04:12 → ED 04:12 → MED 12:25
PROVIDERS: ADMIT Hospitalist; ATTEND Internal Medicine

== ENCOUNTER 2021-04-02 17:28 | Inpatient (IN) ==
[2021-04-02] MEDS ORDERED: Albuterol HFA INHALER 8 gm MDI INH ONE (18:15)
[2021-04-02] MEDS ORDERED: Dexamethasone IV 4 MG/ML 5 ML VIAL (20 MG) IVPB ONE (18:16)
[2021-04-02 18:58] LABS: PCO2 Arterial 46 mmHg (35-45)
[2021-04-02 19:00] LABS: ABS Basophils 0.1 10^3/ul (0-0.2); ABS Eosinophils 0.3 10^3/ul (0-0.6); ABS Lymphocytes 1.4 10^3/ul (1.0-4.8); ABS Monocytes 0.7 10^3/ul (0-0.8); ABS Neutrophils 4.7 10^3/ul (1.5-7.7); Eosinophil % 4.2 %; Hematocrit 43 % (42-52); Hemoglobin 14.4 g/dL (14.0-18.0); Lymphocyte % 19.6 %; Mean Corpuscular HGB Conc 34 g/dL (31-36); Mean Corpuscular Hemoglobin 30 pg (27-31); Mean Corpuscular Volume 89 fL (80-94); Mean Platelet Volume 8.2 fL (7.4-10.4); Platelet Count 235 10^3/uL (150-450); Red Blood Count 4.82 10^6 /uL (4.18-5.48); Red Cell Distribution Width 14 % (10-15); White Blood Count 7.3 10^3/uL (3.5-10.8)
[2021-04-02] MEDS ORDERED: nitroGLYCERIN DRIP 25,000 MCG/250 ML BTL ONE (19:00)
[2021-04-02 19:04] LABS: PO2 Arterial 58 mmHg (80-100)
[2021-04-02 19:12] LABS: Activated Partial Thrombo Time 32.3 seconds (26.0-38.0); INR 1.01 (0.86-1.15)
[2021-04-02 19:18] LABS: Albumin 4.2 g/dL (3.2-5.2); Albumin/Globulin Ratio 1.6 (1-3); C Reactive Protein 18.05 mg/L (<8.01); Calcium 9.4 mg/dL (8.6-10.3); EGFR African American 84.2 (>60); EGFR Non-African American 69.6 (>60); Globulin 2.7 g/dL (2-4); Potassium 4.5 mmol/L (3.5-5.0); Total Bilirubin 0.7 mg/dL (0.2-1.0); Total Protein 6.9 g/dL (6.4-8.9)
[2021-04-02] MEDS ORDERED: NITROGLYCERIN IVPB ONE (19:30)
[2021-04-02] MEDS ORDERED: NITROGLYCERIN IV ONE (19:30)
[2021-04-02] MEDS ORDERED: Albuterol (2.5 MG) 0.5 % CONC 0.5 ML NEB.SOLN INH ONE (20:41)
[2021-04-02] MEDS ORDERED: Albuterol/Ipratropium NEB.SOL (2.5/0.5 MG) 3 ML NEB.SOLN INH SCH (21:00)
[2021-04-02] MEDS ORDERED: Albuterol 2.5mg/3 ml (0.083%) NEB.SOLN INH PRN (21:10)
[2021-04-02 21:14] LABS: Magnesium 2.1 mg/dL (1.9-2.7); Phosphorus 3.6 mg/dL (2.5-5.0)
[2021-04-02] MEDS: Heparin 5000 UNITS/ML 1 mL VIAL SUBCUT SCH (21:32)
[2021-04-02 21:36] LABS: PCO2 Arterial 42 mmHg (35-45); PO2 Arterial 176 mmHg (80-100)
[2021-04-03] MEDS: methylPREDNISolone SOD 40 mg/ml 1 ml VIAL IV SCH ×4 (01:39→16:28)
[2021-04-03] MEDS ORDERED: Albuterol 2.5mg/3 ml (0.083%) NEB.SOLN INH ONE (01:42)
[2021-04-03 02:10] LABS: Urine Appearance Cloudy; Urine Bilirubin Negative (Negative); Urine Blood Negative (Negative); Urine Color Yellow; Urine Glucose Negative (Negative); Urine Ketones Negative (Negative); Urine Nitrite Negative (Negative); Urine Protein 1+(30 mg/dL) (Negative); Urine Specific Gravity 1.015 (1.002-1.030); Urine Urobilinogen Negative (Negative)
[2021-04-03 02:15] LABS: Urine Bacteria Absent (Absent); Urine Red Blood Cell 1+(3-5/hpf) (Absent); Urine White Blood Cell Trace(0-5/hpf) (Absent)
[2021-04-03] MEDS: Mometasone/Formoter 200/5 MDI INH SCH ×3 (03:41→20:18)
[2021-04-03] MEDS: Albuterol/Ipratropium NEB.SOL (2.5/0.5 MG) 3 ML NEB.SOLN INH SCH ×5 (04:44→16:49)
[2021-04-03 06:24] LABS: ABS Lymphocytes 0.5 10^3/ul (1.0-4.8); ABS Monocytes 0.1 10^3/ul (0-0.8); ABS Neutrophils 6.1 10^3/ul (1.5-7.7); Eosinophil % 0.1 %; Hematocrit 40 % (42-52); Hemoglobin 13.8 g/dL (14.0-18.0); Lymphocyte % 7.7 %; Mean Corpuscular HGB Conc 34 g/dL (31-36); Mean Corpuscular Hemoglobin 30 pg (27-31); Mean Corpuscular Volume 89 fL (80-94); Mean Platelet Volume 8.4 fL (7.4-10.4); Nucleated Red Blood Cells % 0.1; Platelet Count 233 10^3/uL (150-450); Red Blood Count 4.54 10^6 /uL (4.18-5.48); Red Cell Distribution Width 13 % (10-15); White Blood Count 6.7 10^3/uL (3.5-10.8)
[2021-04-03 06:45] LABS: Calcium 8.9 mg/dL (8.6-10.3); EGFR Non-African American 79.4 (>60); Phosphorus 3.6 mg/dL (2.5-5.0); Potassium 4.2 mmol/L (3.5-5.0)
[2021-04-03] MEDS: Aspirin EC 81 mg TAB.EC (enteric coated) PO SCH (08:29)
[2021-04-03] MEDS: Heparin 5000 UNITS/ML 1 mL VIAL SUBCUT SCH ×3 (08:29→20:25)
[2021-04-03] MEDS ORDERED: Albuterol HFA INHALER 8 gm MDI INH PRN (16:10)
[2021-04-03] MEDS: Albuterol HFA INHALER 8 gm MDI INH SCH ×2 (20:17→23:10)
[2021-04-03] MEDS: cefTRIAXone 1 gm/50 mL NS BAG 1 GM/50 ML BAG IVPB SCH (20:26)
[2021-04-04] MEDS: Albuterol HFA INHALER 8 gm MDI INH SCH ×3 (05:37→11:24)
[2021-04-04] MEDS: methylPREDNISolone SOD 40 mg/ml 1 ml VIAL IV SCH (06:10)
[2021-04-04 06:37] LABS: ABS Lymphocytes 0.7 10^3/ul (1.0-4.8); ABS Monocytes 0.8 10^3/ul (0-0.8); ABS Neutrophils 8.6 10^3/ul (1.5-7.7); Hematocrit 37 % (42-52); Hemoglobin 12.6 g/dL (14.0-18.0); Lymphocyte % 7.1 %; Mean Corpuscular HGB Conc 34 g/dL (31-36); Mean Corpuscular Hemoglobin 30 pg (27-31); Mean Corpuscular Volume 88 fL (80-94); Mean Platelet Volume 8.6 fL (7.4-10.4); Platelet Count 218 10^3/uL (150-450); Red Blood Count 4.22 10^6 /uL (4.18-5.48); Red Cell Distribution Width 13 % (10-15); White Blood Count 10.1 10^3/uL (3.5-10.8)
[2021-04-04 06:47] LABS: Calcium 8.5 mg/dL (8.6-10.3); EGFR African American 113.1 (>60); EGFR Non-African American 93.4 (>60); Magnesium 2.2 mg/dL (1.9-2.7); Phosphorus 2.8 mg/dL (2.5-5.0); Potassium 4.3 mmol/L (3.5-5.0)
[2021-04-04] MEDS: Mometasone/Formoter 200/5 MDI INH SCH ×2 (07:37→23:18)
[2021-04-04] MEDS: Aspirin EC 81 mg TAB.EC (enteric coated) PO SCH (08:30)
[2021-04-04] MEDS: Calcium Carb (TUMS) 500 mg CHEW TAB PO PRN (08:30)
[2021-04-04] MEDS: Heparin 5000 UNITS/ML 1 mL VIAL SUBCUT SCH (08:31)
[2021-04-04] MEDS ORDERED: Enoxaparin 40 MG/0.4 ML SYR SUBCUT SCH ×2 (10:00→21:00)
[2021-04-04] MEDS ORDERED: Albuterol HFA INHALER 8 gm MDI INH PRN (11:23)
[2021-04-04] MEDS: cefTRIAXone 1 gm/50 mL NS BAG 1 GM/50 ML BAG IVPB SCH (20:24)
[2021-04-05] MEDS: Calcium Carb (TUMS) 500 mg CHEW TAB PO PRN (06:42)
[2021-04-05] MEDS: Aspirin EC 81 mg TAB.EC (enteric coated) PO SCH (07:51)
[2021-04-05] MEDS: Mometasone/Formoter 200/5 MDI INH SCH (09:20)
[2021-04-05 11:16] VITALS: BP 134/78
== END 2021-04-05 13:30 | disposition home or self-care (01) | DRG 189 ==
LOC: ED 17:28 → SUATTDRO 20:28 → ICU 20:29 → EDHOLD 23:29 → ICU 04-03 05:35 → MEDTELE 04-04 08:08
PROVIDERS: ADMIT Student in an Organized Health Care Education/Training Program; ATTEND Internal Medicine